=== PATIENT | female | born 1940 | race Caucasian/White ===

== ENCOUNTER 2018-07-31 12:57 | Observation (INO) | payer OTHER ==
--- OUTSIDE RECORDS SUMMARY | 2018-07-31 13:02 | XMS REPORT | Continuity of Care Document ---
:1940 Author Organization Interface Problems Problem Status Onset Classification Date Comments Source Date Reported Paroxysmal atrial 07/30/19 10/23/2017 [facility] fibrillation [facility] PAROXYSMAL ATRIAL Active 06/24/19 [facility] FIB [address] [place] [address] Center CCL GENERAL Active 06/24/19 [facility] ANESTESHIAEP 18 Medical STUDY W. PO Center I48.0 Active 06/24/[address] ELEVATED TROPIN Active 03/03/20 [facility] ELEVATED WBC 17 [facility] Center Coronary artery Active Problem 10/23/2017 [facility] Diabetes Active Problem 10/23/2017 [facility] HLD (<span Resolved Problem 10/23/2017 [place] ID="[id number]"> Medical Confirmed</span>) Center HTN (<span Resolved Problem 10/23/2017 [place] ID="[id number]"> Medical Confirmed</span>) Center Hypertension Active Problem 10/23/2017 [facility] Hypocalcemia Active Problem 10/23/2017 [facility] Hypokalemia Active Problem 10/23/2017 [facility] Hypomagnesemia Active Problem 10/23/2017 [facility] Tachycardia, 10/21/2017 [facility] unspecified [facility] Sick sinus 10/23/2017 [facility] syndrome [facility] 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 Atherosclerosis of 10/21/2017 [facility] aorta [facility] Other nonspecific 10/21/2017 [facility] abnormal finding Medical of lung field Center Personal history 10/23/2017 [facility] of transient Medical ischemic attack , Center and cerebral infarction without residual deficits Essential 10/23/2017 [facility] hypertension [facility] Hyperlipidemia, 10/23/2017 [facility] unspecified [facility] 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 Type 2 diabetes 10/23/2017 [facility] mellitus without Medical complications Center Personal history 10/23/2017 [facility] of nicotine Medical dependence Center intermodal dispatcher use of 10/23/2017 [facility] anticoagulants Medical Center snf use of 10/23/2017 [facility] antithrombotics/an Medical tiplatelets Center intermodal dispatcher use of 10/23/2017 [facility] insulin [facility] Other terminal manager 10/23/2017 [facility] drug therapy [facility] PAROXYSMAL ATRIAL Active [facility] FIBRILLATION [facility] Medications Medication Details Route Status Patient Ordering Order Source Instructions Provider Date Zocor 40 mg, 1 tab, Inactive [facility] Route: PO, Drug 2017 Medical form: TAB, Center Bedtime, Dosing Weight 78.182, kg, Start date: 07/17/17 21:00:00 TRUCK UNLOADER, Duration: 30 day, Stop date: 08/15/17 21:00:00 CDTNotes: (Same as: Zocor) apixaban 2.5 MG 2.5 mg, PO, Active [facility] Oral Tablet Q12H, # 60 tab, 2018 Medical [Eliquis] 3 Refill(s) Center clopidogrel 75 75 mg=1 tab, PO, Active 07/17[facility] MG Oral Tablet Daily, # 90 tab, 2018 Medical [Plavix] 1 Refill(s) Center pantoprazole 40 mg, 1 tab, Inactive [facility] Route: PO, Drug 2017 Medical form: ECTAB, Center Daily, Dosing Weight 78.182, kg, Start date: 07/17/17 9:00:00 TRUCK UNLOADER, Duration: 30 day, Stop date: 08/15/17 9:00:00 CDTNotes: Tablet should not be chewed or crushed. (Same as: Protonix) Sucralfate 1 gm, 1 tab, Inactive 07/17[facility] Route: PO, Drug 2017 Medical form: TAB, BID, Center Dosing Weight 78.182, kg, Start date: 07/17/17 9:00:00 TRUCK UNLOADER, Duration: 30 day, Stop date: 08/15/17 17:00:00 CDTNotes: May interfere w/enteral feeds - Take 1 hr before or 2 hr after antacids, dairy pdt, meals & minerals - On empty stomach. For patients unable to swallow tablet, dissolve in 10mL - 30mL of water or juice and stir before giving. (Same As: Carafate) Furosemide 20 MG 20 mg, 1 tab, Inactive [facility] Oral Tablet Route: PO, Drug 2017 Medical [Lasix] form: TAB, Center Daily, Dosing Weight 78.182, kg, Start date: 07/17/17 9:00:00 TRUCK UNLOADER, Duration: 30 day, Stop date: 08/15/17 9:00:00 CDTNotes: (Same as: Lasix) May cause GI upset. Give with food or milk. Plavix 75 mg, 1 tab, Inactive [facility] Route: PO, Drug 2018 Medical form: TAB, Center Daily, Dosing Weight 78.182, kg, Start date: 07/17/17 9:00:00 TRUCK UNLOADER, Duration: 30 day, Stop date: 08/15/17 9:00:00 CDTNotes: (Same As: Plavix) Citalopram 10 mg, 1 tab, Inactive [facility] Route: PO, Drug 2018 Medical form: TAB, Center Daily, Dosing Weight 78.182, kg, Start date: 07/17/17 9:00:00 TRUCK UNLOADER, Duration: 30 day, Stop date: 08/15/17 9:00:00 CDT Aspirin 81 MG 81 mg, 1 tab, Inactive [facility] Enteric Coated Route: PO, Drug 2018 Medical Tablet form: ECTAB, Center Daily, Dosing Weight 78.182, kg, Start date: 07/17/17 9:00:00 TRUCK UNLOADER, Duration: 30 day, Stop date: 08/15/17 9:00:00 CDTNotes: Do not crush or chew. (Same As: Ecotrin) valsartan 320 mg, 2 tab, Inactive [facility] Route: PO, Drug 2018 Medical form: TAB, Center Daily, Dosing Weight 78.182, kg, Start date: 07/17/17 9:00:00 TRUCK UNLOADER, Duration: 30 day, Stop date: 08/15/17 9:00:00 CDTNotes: Same as Diovan Januvia 100 mg, 1 tab, Inactive 07/17[facility] Route: PO, Drug 2018 Medical form: TAB, Center Daily, Dosing Weight 78.182, kg, Start date: 07/17/17 9:00:00 TRUCK UNLOADER, Duration: 30 day, Stop date: 08/15/17 9:00:00 CDTNotes: (Same as: Januvia) Eliquis 2.5 mg, 1 tab, Inactive [facility] Route: PO, Drug 2018 Medical form: TAB, Q12H, Center Dosing Weight 78.182, kg, Start date: 07/17/17 9:00:00 TRUCK UNLOADER, Duration: 30 day, Stop date: 08/15/17 21:00:00 CDTNotes: Same as: Eliquis Amiodarone 200 mg, 1 tab, Inactive Dru Route: PO, Drug 2018 Medical form: TAB, BID, Center Dosing Weight 78.182, kg, Start date: 07/17/17 9:00:00 TRUCK UNLOADER, Duration: 30 day, Stop date: 08/15/17 17:00:00 CDTNotes: (Same as: Cordarone) AMIODarone 200 200 mg, PO, BID, Active 07/17[facility] Dru mg oral tablet # 60 tab, 3 2017 Medical Refill(s) [place] sucralfate 1 g 1 gm, PO, BID, # Active Dru oral tablet 28 tab, 0 2017 Medical Refill(s) [place] Regular Insulin, 5 unit, 0.05 mL, Inactive [facility] Human 100 UNT/ML Route: SUB-Q, 2018 Medical Injectable Drug form: [facility], [place] Solution TID-Before Meals, Dosing Weight 78.182, kg, PRN Blood Glucose Results, Start date: 07/17/17 8:46:00 TRUCK UNLOADER, Duration: 30 day, Stop date: 08/16/17 8:45:00 CDT, hyperglycemiaNot es: (Same as: Humulin R) Roll in palms of hands gently; Do not shake vigorously. "single patient use only" (Restricted to patients requiring a dose > 60 units) WASTE: F/P - Black; E - Liquid Machines Trash Bin Stable for 28 days at room temperature Expires in days from Da te neostigmine Route: IV, Drug Inactive [facility] (ANES) form: INJ, ONCE, 2017 Medical Stop date: [place] 07/16/17 14:31:00 TRUCK UNLOADER ondansetron Route: IV, Drug Inactive 07/16[facility] Dru (ANES) form: INJ, ONCE, 2017 Medical Stop date: [place] 07/16/17 14:31:00 TRUCK UNLOADER glycopyrrolate Route: IV, Drug Inactive [place] (ANES) form: INJ, ONCE, 2017 Medical Stop date: [place] 07/16/17 14:31:00 TRUCK UNLOADER protamine (ANES) Route: IV, Drug Inactive [place] form: INJ, ONCE, 2017 Medical Stop date: [place] 07/16/17 14:31:00 TRUCK UNLOADER Fentanyl 50 microgram, 1 No Longer [place] mL, Route: IVP, Active 2017 Medical Drug form: INJ, Center Q5Min, Dosing Weight 78.182, kg, PRN Pain Score 7-10, Priority: Routine, Start date: 07/16/17 14:11:00 TRUCK UNLOADER, Duration: 2 doses or times, Stop date: Limited # of timesNotes: (Same as: Sublimaze) Preservative free. Naloxone 0.4 mg, 1 mL, No Longer [place] Route: IVP, Drug Active 2017 Medical form: INJ, Center Q2MIN, Dosing Weight 78.182, kg, PRN Narcotic Reversal, Start date: 07/16/17 14:11:00 TRUCK UNLOADER, Duration: 8 doses or times, Stop date: Limited # of timesNotes: Same as Narcan Flumazenil 0.2 mg, 2 mL, No Longer [place] Route: IVP, Drug Active 2017 Medical form: INJ, PRN, Center Dosing Weight 78.182, kg, PRN Benzodiazepine Reversal, Initial dose, Start date: 07/16/17 14:11:00 TRUCK UNLOADER, Duration: 30 day, Stop date: 08/15/17 15:10:00 CDTNotes: (Same as: Romazicon) Ondansetron 4 mg, 2 mL, No Longer [place] Route: IVP, Drug Active 2017 Medical form: INJ, ONCE, Center Dosing Weight 78.182, kg, PRN Nausea & Vomiting, Start date: 07/16/17 14:11:00 CSTNotes: (Same as: Zofran) MEDICATION WASTE Product Size: 4 mg Product Wasted: ___ mg Hydralazine 10 mg, 0.5 mL, No Longer [place] Route: IVP, Drug Active 2017 Medical form: INJ, Center Q20Min, Dosing Weight 78.182, kg, PRN Elevated BP, Start date: 07/16/17 14:11:00 TRUCK UNLOADER, Duration: 2 doses or times, Stop date: Limited # of timesNotes: (Same as: Apresoline) Push over 5 minutes Metoprolol 1 mg, 1 mL, No Longer [place] Route: IVP, Drug Active 2017 Medical form: INJ, Center Q5Min, Dosing Weight 78.182, kg, PRN Other -See Comment, Start date: 07/16/17 14:11:00 TRUCK UNLOADER, Duration: 5 doses or times, Stop date: Limited # of timesNotes: (Same as: Lopressor) Push over 2 minutes Acetaminophen 1,000 mg, 2 tab, No Longer [place] Route: PO, Drug Active 2017 Medical form: TAB, ONCE, Center Dosing Weight 78.182, kg, PRN Pain Score 1-3, Start date: 07/16/17 14:11:00 CSTNotes: Max acetaminophen 4000 mg/day (4 gm/day). (Same as: Tylenol Extra Strength) EPINEPHrine Route: IV, Drug Inactive [facility] (ANES) form: INJ, ONCE, 2017 Medical Stop date: [place] 07/16/17 13:36:00 TRUCK UNLOADER niCARdipine Route: IV, Drug Inactive [facility] (ANES) + sodium form: INJ, ONCE, 2017 Medical chloride (ANES) Stop date: [place] 4 mL 07/16/17 13:31:00 TRUCK UNLOADER fentaNYL (ANES) Route: IV, Drug Inactive [facility] form: INJ, ONCE, 2017 Medical Stop date: [place] 07/16/17 12:11:00 TRUCK UNLOADER propofol (ANES) Route: IV, Drug Inactive [facility] form: INJ, ONCE, 2017 Medical Stop date: [place] 07/16/17 12:11:00 TRUCK UNLOADER midazolam (ANES) Route: IV, Drug Inactive Dru form: SOLN, 2017 Medical ONCE, Stop date: [place] 07/16/17 12:11:00 TRUCK UNLOADER cisatracurium Route: IV, Drug Inactive Dru (ANES) form: INJ, ONCE, 2017 Medical Stop date: [place] 07/16/17 12:11:00 TRUCK UNLOADER Sodium Chloride Route: IV, Total Inactive [facility] 0.9% IV (ANES) Volume: 1,000, 2018 Medical 1000 mL Start date: Center 07/16/17 11:20:00 TRUCK UNLOADER, Stop date: 07/16/17 12:20:00 TRUCK UNLOADER Fentanyl 50 microgram, Inactive [facility] Route: IV, ONCE, 2018 Medical Dosing Weight Center 78.182, kg, Start date: 07/16/17 9:57:00 TRUCK UNLOADER, Stop date: 07/16/17 9:57:00 TRUCK UNLOADER Versed 2 mg, Route: Inactive Dru IVP, ONCE, 2018 Medical Dosing Weight Center 78.182, kg, Start date: 07/16/17 9:57:00 TRUCK UNLOADER, Stop date: 07/16/17 9:57:00 TRUCK UNLOADER Simvastatin 40 40 mg=1 tab, PO, Active [facility] MG Oral Tablet Bedtime, 0 2018 Medical [Zocor] Refill(s) Center clopidogrel 75 75 mg=1 tab, PO, No Longer [facility] MG Oral Tablet Daily, 0 Active 2018 Medical [Plavix] Refill(s) Center apixaban 2.5 MG 2.5 mg, PO, No Longer [facility] Oral Tablet Q12H, 0 Active 2018 Medical [Eliquis] Refill(s) Center multivitamin 1, PO, Daily, 0 Active [facility] Refill(s) 2018 Medical [place] normal saline 1,000 mL, Rate: No Longer [place] 0.9% IV 1,000 mL 100 ml/hr, Active 2018 Medical Infuse over: 10 Center hr, Route: IV, Dosing Weight 78.182 kg, Total Volume: 1,000, Start date: 07/16/17 7:01:00 TRUCK UNLOADER, Duration: 30 day, Stop date: 08/15/17 7:00:00 CDT, 1.89, m2 Regular Insulin, 5 unit, SUB-Q, Active [facility] Human 100 UNT/ML TID-Before 2017 Medical Injectable Meals, PRN Blood Center Solution Glucose Results, # 1 vial, 2 Refill(s) Blood Glucose 1 ea, MISC, Active Dru Monitor Daily, Use as 2017 Medical directed., # 1 Center ea, 0 Refill(s) Lancets 1 box, MISC, Active [place] Daily, # 1 box, 2017 Medical 0 Refill(s) Center Insulin 1 ea, MISC, TID, Active [place] Needle/Syringe # 100 ea, 11 2016 Medical Combo Misc/Other Refill(s) Center atorvastatin 80 mg, 1 tab, No Longer [place] Route: PO, Drug Active 2016 Medical form: TAB, Center Bedtime, Dosing Weight 70.938, kg, Start date: 03/04/17 21:00:00 CDT, Duration: 30 day, Stop date: 04/02/17 21:00:00 CSTNotes: Same as Lipitor NS (Bolus) IV 500 mL, 100 Inactive [place] ml/hr, Route: 2017 Medical IV, ONCE, Dosing Center Weight 70.938 kg, Start date: 03/04/17 10:39:00 CDT, Stop date: 03/04/17 10:39:00 CDT Saline Flush 10 ml, Route: No Longer [place] 0.9% IVP, Drug Form: Active 2016 Medical INJ, Dosing Center Weight 70.938, kg, Q12H, Start date: 03/04/17 9:00:00 CDT, Duration: 30 day, Stop date: 04/02/17 21:00:00 CSTNotes: (Same as: BD Posiflush) pantoprazole 40 mg, Route: Inactive [place] IVP, Drug form: 2016 Medical INJ, Daily, Center Dosing Weight 70.938, kg, Start date: 03/04/17 9:00:00 CDT, Duration: 30 day, Stop date: 04/02/17 9:00:00 CSTNotes: For IV push reconstitute with 10 ml 0.9% sodium chloride and push over 2 minutes. (Same as: Protonix) valsartan 160 mg, 1 tab, No Longer [place] Route: PO, Drug Active 2016 Medical form: TAB, Center Daily, Dosing Weight 70.938, kg, Start date: 03/04/17 9:00:00 CDT, Stop date: 04/02/17 9:00:00 CSTNotes: Same as Diovan Ticagrelor 90 mg, 1 tab, No Longer Dru Route: PO, Drug Active 2016 Medical form: TAB, Q12H, Center Dosing Weight 70.938, kg, Start date: 03/04/17 9:00:00 CDT, Duration: 30 day, Stop date: 04/02/17 21:00:00 CSTNotes: (Same as: Brilinta) Sotalol 40 mg, 0.5 tab, No Longer [place] Hydrochloride 80 Route: PO, Drug Active 2016 Medical MG Oral Tablet form: TAB, BID, Center Dosing Weight 70.938, kg, Start date: 03/04/17 9:00:00 CDT, Duration: 30 day, Stop date: 04/02/17 17:00:00 CSTNotes: (Same As: Betapace) 40 mg=1/2 x 80 mg TAB Streptococcus 0.5 mL, Route: Inactive Dru pneumoniae IM, Drug Form: 2016 Medical serotype 1 INJ, Daily, Center capsular antigen Start date: diphtheria 03/04/17 9:00:00 [id number] protein CDT, Duration: 1 conjugate doses or times, vaccine / Stop date: Streptococcus 03/04/17 9:00:00 pneumoniae CDTNotes: Shake serotype 14 well prior to capsular antigen use (Same as: diphtheria Prevnar 13) [id number] protein conjugate vaccine / Streptococcus pneumoniae serotype 18C capsular antigen d Citalopram 10 mg, Route: No Longer Dru PO, Drug form: Active 2016 Medical TAB, Daily, Center Dosing Weight 70.938, kg, Start date: 03/04/17 9:00:00 CDT, Duration: 30 day, Stop date: 04/02/17 9:00:00 TRUCK UNLOADER influenza virus 0.5 mL, Route: Inactive Dru vaccine, IM, Drug Form: 2016 Medical inactivated SUSP, Daily, Center Start date: 03/04/17 9:00:00 CDT, Duration: 1 doses or times, Stop date: 03/04/17 9:00:00 CDTNotes: (Same as: Fluzone Quadrivalent, Fluarix Quadrivalent) For 3 years of age and older (0.5 mL IM) Shake well before use aspirin 81 mg 81 mg, 1 tab, No Longer Dru tablet, enteric Route: PO, Drug Active 2016 Medical coated form: ECTAB, Center Daily, Dosing Weight 70.938, kg, Start date: 03/04/17 9:00:00 CDT, Duration: 30 day, Stop date: 04/02/17 9:00:00 CSTNotes: Do not crush or chew. (Same As: Ecotrin) Amlodipine 10 mg, 1 tab, No Longer [place] Route: PO, Drug Active 2016 Medical form: TAB, Center Daily, Dosing Weight 70.938, kg, Start date: 03/04/17 9:00:00 CDT, Duration: 30 day, Stop date: 04/02/17 9:00:00 CSTNotes: (Same as: Norvasc) Insulin regular 5 unit, 0.05 mL, No Longer [place] Route: SUB-Q, Active 2016 Medical Drug form: SOLN, Center TID-Before Meals, Dosing Weight 70.938, kg, Start date: 03/04/17 7:30:00 CDT, Duration: 30 day, Stop date: 04/02/17 16:30:00 CSTNotes: (Same as: Humulin R) Roll in palms of hands gently; Do not shake vigorously. "single patient use only" (Restricted to patients requiring a dose > 60 units) WASTE: F/P - Black; E - Liquid Mach[employer] Trash Bin Stable for 28 days at room temperature Expires in days from Da te pantoprazole 40 mg, 1 tab, No Longer [place] Route: PO, Drug Active 2016 Medical form: ECTAB, Center Before Breakfast, Dosing Weight 70.938, kg, Start date: 03/04/17 7:30:00 CDT, Duration: 30 day, Stop date: 04/02/17 7:30:00 CSTNotes: Tablet should not be chewed or crushed. (Same as: Protonix) Sodium Chloride 1,000 mL, 1,000 Inactive [place] 0.9% (Bolus) IV ml/hr, Infuse 2017 Medical Over: 1 hr, [place] Route: IV, 1,000, Drug form: INJ, ONCE, Priority: STAT, Dosing Weight 70.938 kg, Start date: 03/04/17 1:34:00 CDT, Duration: 1 doses or times, Stop date: 03/04/17 1:34:00 CDT Calcium Chloride 1,000 mL, 1,000 Inactive [place] 0.0014 MEQ/ML / ml/hr, Infuse 2017 Medical Potassium Over: 1 hr, Center Chloride 0.004 Route: IVPB, MEQ/ML / Sodium 1,000, Drug Chloride 0.103 form: INJ, ONCE, MEQ/ML / Sodium Priority: STAT, Lactate 0.028 Dosing Weight MEQ/ML 70.938 kg, Start Injectable date: 03/04/17 Solution 1:23:00 CDT, Duration: 1 doses or times, Stop date: 03/04/17 1:23:00 CDT Insulin regular 3 unit, 0.03 mL, No Longer [place] Route: SUB-Q, Active 2016 Medical Drug form: SOLN, Center Bedtime, Dosing Weight 70.938, kg, PRN Blood Glucose Results, Start date: 03/04/17 1:20:00 CDT, Duration: 30 day, Stop date: 04/03/17 1:19:00 CSTNotes: (Same as: Humulin R) Roll in palms of hands gently; Do not shake vigorously. "single patient use only" (Restricted to patients requiring a dose > 60 units) WASTE: F/P - Black; E - Liquid [employer] Trash Bin Stable for 28 days at room temperature Expires in days from Da te Dextrose 50% 12.5 gm, 25 mL, No Longer [place] Syringe Route: IVP, Drug Active 2016 Medical Form: INJ, Center Dosing Weight 70.938, kg, PRN, PRN Blood Glucose Results, Start date: 03/04/17 1:20:00 CDT, Duration: 30 day, Stop date: 04/03/17 0:19:00 TRUCK UNLOADER Glucagon 1 mg, Route: IM, No Longer [place] Drug form: Active 2017 Medical PDR/INJ, PRN, Center Dosing Weight 70.938, kg, PRN Blood Glucose Results, Start date: 03/04/17 1:20:00 CDT, Duration: 30 day, Stop date: 04/03/17 0:19:00 TRUCK UNLOADER benzonatate 100 mg, 1 cap, No Longer [place] Route: PO, Drug Active 2016 Medical form: CAP, TID, Center Dosing Weight 70.938, kg, PRN Cough, Start date: 03/04/17 0:08:00 CDT, Duration: 30 day, Stop date: 04/03/17 0:07:00 CSTNotes: (Same As: Nay [place]) "Do Not Crush" Saline Flush 10 ml, Route: No Longer [place] 0.9% IVP, Drug Form: Active 2017 Medical INJ, Dosing Center Weight 70.938, kg, PRN, PRN Line Flush, Start date: 03/03/17 21:50:00 CDT, Duration: 30 day, Stop date: 04/02/17 20:49:00 CSTNotes: (Same as: BD Posiflush) Acetaminophen 650 mg, 2 tab, No Longer [place] Route: PO, Drug Active 2016 Medical form: TAB, Q4H, Center Dosing Weight 70.938, kg, PRN For Temp > 100.4 F, Start date: 03/03/17 21:50:00 CDT, Duration: 30 day, Stop date: 04/02/17 21:49:00 CSTNotes: Do not exceed 4 gm/day. (Same as: Tylenol) Nystatin 100 1 appl, Route: No Longer [place] UNT/MG Topical TOP, PRN, Drug Active 2016 Medical Powder form: PWDR, PRN [facility] Prophyl[facility], Start date: 03/03/17 21:50:00 CDT, Duration: 30 day, Stop date: 04/02/17 20:49:00 CSTNotes: (Same as:Mycostatin, Nilstat) For external use only. Calcium 500 mg, 1 tab, No Longer [place] Carbonate 500 MG Route: PO, Drug Active 2016 Medical Chewable Tablet form: CHEWTAB, Center PRN, Dosing Weight 70.938, kg, PRN Abnormal Lab Result, FOR ICU USE ONLY, Start date: 03/03/17 21:50:00 CDT, Duration: 30 day, Stop date: 04/02/17 20:49:00 CSTNotes: (Same As: Tums) Calcium Carbonate 500 on=746 mg elemental calcium Dose= mg calcium carbonate ( mg elemental calcium) Calcium 1 gm, 10 mL, No Longer [place] Gluconate Route: IVPB, Active 2017 Medical PRN, Dosing Center Weight 70.938, kg, PRN Abnormal Lab Result, Start date: 03/03/17 21:50:00 CDT, Duration: 30 day, Stop date: 04/02/17 20:49:00 TRUCK UNLOADER, FOR ICU USE ONLYNotes: WASTE: F/P - Sink; E - Municipal Trash Bin Magnesium 2 gm, 50 mL, No Longer [place] Sulfate Route: IVPB, Active 2016 Medical Drug form: INJ, Center PRN, Dosing Weight 70.938, kg, PRN Abnormal Lab Result, Start date: 03/03/17 21:50:00 CDT, Duration: 30 day, Stop date: 04/02/17 20:49:00 TRUCK UNLOADER, FOR ICU USE ONLYNotes: WASTE: F/P - Sink; E - Municipal Trash Bin Magnesium Oxide 800 mg, 2 tab, No Longer [place] Route: PO, Drug Active 2016 Medical form: TAB, PRN, Center Dosing Weight 70.938, kg, PRN Abnormal Lab Result, FOR ICU USE ONLY, Start date: 03/03/17 21:50:00 CDT, Duration: 30 day, Stop date: 04/02/17 20:49:00 CSTNotes: (Same as: Mag-Ox 400) Magnesium oxide [id number] elemental magnesium Dose=____mg magnesium oxide (___mg elemental magnesium) potassium 45 mmol, 15 mL, No Longer [place] phosphate Route: IVPB, Active 2016 Medical PRN, Dosing Center Weight 70.938, kg, PRN Abnormal Lab Result, Start date: 03/03/17 21:50:00 CDT, Duration: 30 day, Stop date: 04/02/17 20:49:00 TRUCK UNLOADER, FOR ICU USE ONLYNotes: (Same as: K Phosphate.) 1 mMol phoshate has 1.47 mEq potassium Infuse over 4 hours potassium 2 pkt, Route: No Longer Dru phosphate-sodium PO, Drug Form: Active 2017 Medical phosphate 250 PDR/REC, Dosing Center mg-280 mg-160 mg Weight 70.938, oral powder for kg, PRN, PRN reconstitution Abnormal Lab Result, FOR ICU USE ONLY, Start date: 03/03/17 21:50:00 CDT, Duration: 30 day, Stop date: 04/02/17 20:49:00 CSTNotes: (Same as: Phos-NaK) Each 1.5 gm pkt has 250mg phosphorous. Mix w/2.5oz water and stir. sodium phosphate 45 mmol, 15 mL, No Longer [place] Route: IVPB, Active 2016 Medical PRN, Dosing Center Weight 70.938, kg, PRN Abnormal Lab Result, Start date: 03/03/17 21:50:00 CDT, Duration: 30 day, Stop date: 04/02/17 20:49:00 TRUCK UNLOADER, FOR ICU USE ONLY Potassium 20 mEq, 15 mL, No Longer [place] Chloride Route: [place], Drug Active 2016 Medical form: LIQ, PRN, Center Dosing Weight 70.938, kg, PRN Abnormal Lab Result, Start date: 03/03/17 21:50:00 CDT, Duration: 30 day, Stop date: 04/02/17 20:49:00 TRUCK UNLOADER, FOR ICU USE ONLYNotes: (Same as: Potassium Chloride) Allergies, Adverse Reactions, Alerts Substance Category Reaction Severity Reaction Status Date Comments Source type Reported sulfa drugs Assertion Drug Active [facility] allergy [facility] Immunizations Immunization Date Given Site Status Last Updated Comments Source pneumococcal 02/26/2017 Not Given [facility] 13-valent vaccine [facility] influenza virus 02/26/2017 Not Given [facility] vaccine, Medical inactivated Center Results Order Name Results Value Reference Date Interpretation Comments Source Range HEMATOLOGY POC Activated 142 s 07/16 [facility] Clotting Time /2017 [facility] HEMATOLOGY POC Activated 349 s 07/16 [facility] Clotting Time /2017 [facility] HEMATOLOGY POC Activated 403 s 07/16 [facility] Clotting Time [facility] BLOOD BANK AB Int Anti-D 07/16 [facility] RESULTS [facility] BLOOD BANK ABO/Rh AB NEG 07/16 [facility] BLOOD BANK Antibody Scrn Positive 1 07/16 Result Comment: 07/16/2017 08 :43 [id number] [facility] "Significant Findings of POS ABSC_ called to ROCKY OILVO_ at CATH LAB_ by AT_. Read Back OK" [facility] (07/16/17 7:05 AM) [place] CHEM PANEL Total Protein 7.0 g/dL 6.4 - 8.4 07/16 [facility]2017 [facility] CHEM PANEL AST 24 unit/L 0 - 37 07/[address] CHEM PANEL Alk Phos 73 unit/L 39 - 136 07/[address] CHEM PANEL Bili Total 0.5 mg/dL 0.2 - 1.3 07/[address] CHEM PANEL Albumin Lvl 3.5 g/dL 3.5 - 5.0 07/16 [facility] CHEM PANEL ALT 19 unit/L 0 - 65 07/[address] CHEM PANEL eGFR 45 07/16 Result Comment: The eGFR is calculated using the CKD-EPI formula. In most young, healthy individuals the eGFR will be >90 mL/ min/1.73m2. The eGFR declines with age. An eGFR of 60-89 may be normal in [facility] mL/min/1. some populations, particularly the elderly, for whom the CKD-EPI formula has not been extensively validated. Use of the eGFR is not recommended in the following populations: [address] Individuals with unstable creatinine concentrations, including patients and those with serious co-morbid conditions. Patients with extremes in muscle mass or diet. The data above are obtained from the National Kidney Disease Education Program (NKDEP) which additionally recommends that when the eGFR is used in patients with extremes of body mass index for purposes of drug dosing, the eGFR should be multiplied by the estimated BMI. CHEM PANEL Calcium Lvl 9.4 mg/dL 8.5 - 10.5 07/16 [facility] CHEM PANEL CO2 30 meq/L 24 - 32 07/[address] CHEM PANEL Sodium Lvl 139 meq/L 135 - 145 07/[address] CHEM PANEL Potassium Lvl 3.9 meq/L 3.5 - 5.1 07/[address] CHEM PANEL Chloride Lvl 100 meq/L 95 - 109 07/[address] CHEM PANEL Glucose Lvl 327 mg/dL 70 - 99 07/[address] CHEM PANEL Creatinine 1.19 mg/dL 0.50 - 07/16 [facility] Lvl 1.40 /2017 [facility] CHEM PANEL BUN 16 mg/dL 7 - 22 07/16 [facility]2017 [facility] CHEM PANEL Globulin 3.5 g/dL 2.7 - 4.2 07/16 [facility]2017 [facility] CHEM PANEL A/G Ratio 1.0 0.7 - 1.6 07/16 [facility]2017 [facility] CHEM PANEL B/C Ratio 13 6 - 25 07/16 [facility]2017 [facility] CHEM PANEL AGAP 12.9 meq/L 10.0 - 07/16 20.0 [facility] CHEM PANEL Magnesium Lvl 1.5 mg/dL 1.8 - 2.4 07/16 2017 [facility] HEMATOLOGY PTT 30.7 s 22.9 - 07/16 [facility] 35.8 [facility] HEMATOLOGY PT 15.4 s 12.0 - 07/16 [facility] 14.7 [facility] HEMATOLOGY INR 1.21 0.85 - 07/16 [place] 1.17 [facility] HEMATOLOGY MPV 8.4 fL 7.4 - 10.4 07/[address] [place] [address] HEMATOLOGY Platelet 225 K/CMM 133 - 450 07/16 [facility] HEMATOLOGY MCH 27.7 pg 27.0 - 07/16 31.0 [facility] HEMATOLOGY MCV 82.7 fL 80.0 - 07/16 [facility] 98.0 [facility] HEMATOLOGY RDW 15.7 % 11.5 - 07/16 14.5 [facility] HEMATOLOGY MCHC 33.5 g/dL 32.0 - 07/16 36.0 [facility] HEMATOLOGY RBC 3.82 M/CMM 4.20 - 07/16 [place] 5.40 [facility] HEMATOLOGY WBC 7.2 K/CMM 3.7 - 10.4 07/16 [facility] HEMATOLOGY Hct 31.6 % 36.0 - 07/16 [facility] 48.0 [facility] HEMATOLOGY Hgb 10.6 g/dL 12.0 - 07/16 16.0 2018 [facility] HEMATOLOGY Segs-Bands # 4.9 K/CMM 1.5 - 8.1 07/[address] HEMATOLOGY Lymphocytes # 1.3 K/CMM 1.0 - 5.5 07/[address] HEMATOLOGY Basophils # 0.1 K/CMM 0.0 - 0.2 07/[address] HEMATOLOGY Eosinophils # 0.2 K/CMM 0.0 - 0.5 07/[address] HEMATOLOGY Monocytes # 0.8 K/CMM 0.0 - 0.8 07/[address] HEMATOLOGY Eosinophils 2.2 % 0.0 - 4.0 07/[address] HEMATOLOGY Basophils 0.8 % 0.0 - 1.0 07/[address] HEMATOLOGY Lymphocytes 17.6 % 20.0 - 07/16 [place] 40.0 [facility] HEMATOLOGY Monocytes 11.7 % 2.0 - 12.0 07/[address] HEMATOLOGY Segs 67.7 % 45.0 - 07/16 [facility] 75.0 [facility] CHEM PANEL eGFR 55 07/15 Result Comment: The eGFR is calculated using the CKD-EPI formula. In most young, healthy individuals the eGFR will be >90 mL/ min/1.73m2. The eGFR declines with age. An eGFR of 60-89 may be normal in [facility] mL/min/1.7 some populations, particularly the elderly, for whom the CKD-EPI formula has not been extensively validated. Use of the eGFR is not recommended in the following populations: [address] Individuals with unstable creatinine concentrations, including patients and those with serious co-morbid conditions. Patients with extremes in muscle mass or diet. The data above are obtained from the National Kidney Disease Education Program (NKDEP) which additionally recommends that when the eGFR is used in patients with extremes of body mass index for purposes of drug dosing, the eGFR should be multiplied by the estimated BMI. CHEM PANEL POC 1.0 mg/dL 0.5 - 1.4 07/15 [facility] Creatinine [address] [place] [address] Pulmonary Pulmonary Chest CTA pulmonary vein mapping, 07/15/2017 at 10:01 AM 07/15 - [facility] Vein Vein Mapping /2017 - Medical [facility] CT CT Center HISTORY: 76-year-old female with paroxysmal atrial fibrillation. Evaluate the pulmonary veins. Read by: Alma Gomez MD Dictated Date/time: 07/15/17 10:35 Electronically Signed by: Alma Gomez MD 07/15/17 10:54 FINAL REPORT TECHNIQUE: Continuous [address] images were obtained through the chest according to pulmonary vein mapping protocol elevated the intravenous administration of 90 mL Omnipaque 350 contrast with delayed imaging through the heart. Coronal, sagittal and axial MIP reformatted images provided. No prior chest CT is available for comparison. FINDINGS: 4 pulmonary veins are identified, 2 on the right and 2 on the left. Measurements are as follows: Right superior pulmonary vein 18 x 19 mm, right inferior pulmonary vein 14 x 15 mm, left superior pulmona ry vein 19 x 20 mm and left inferior pulmonary vein 17 x 18 mm. No filling defects are identified in the left atrium to suggest the presence of left atrial thrombus. The AP diameter of the left atrium i s 53 mm. The esophagus comes in closest proximity with the left inferior pulmonary vein. Cardiothoracic ratio is 14.2/23.3 cm. Lipomatous hypertrophy of the interatrial septum. The ascending aorta does not measure enlarged. The pulmonary trunk is slightly prominent at 31 mm, the right pulmo nary artery 25 mm and the left pulmonary artery 24 mm. Calcified atherosclerotic plaque scattered in the thoracic aorta. Abundant calcifications of the left main, left anterior descending, left circumfl ex and right coronary arteries. Mitral annular calcification. Bilateral breast calcifications, which can be correlated with mammography. Abdominal aortic and arterial calcifications. The adrenal glands are unremarkable. Cholecystectomy clips noted. No pericardial effusion. Trace right pleural effusion. The paratracheal lymph node is 14 mm. There are borderline sized right hilar lymph nodes. Additional subcentimeter mediastinal and hilar lymph nodes noted. There is mild interlobular septal thickening with a lower lobe predilection , consistent with very mild interstitial pulmonary edema in the lungs. There are numerous tiny 2 to 3 mm pulmonary nodules scat tered throughout the lungs bilaterally with an upper lobe predilection. The bones are demineralized. The thoracic spine is kyphotic with degenerative changes including osteophytes. There are degenerative changes of the bilateral shoulders. There is deformity of the surgical neck of the proximal left humerus which may be due to old healed trauma. Note is made of old healed bilateral rib fractures anteriorly. Median sternotomy changes. IMPRESSION: 1. 4 pulmonary veins are identified, 2 on the right and 2 on the left. Measurements are as above. 2. No left atrial thrombus. 3. Cardiomegaly. Lipomatous hypertrophy of the interatrial septum. The central pulmonary arteries are slightly prominent. 4. Aortic atherosclerosis. Coronary artery calcifications. 5. Slightly enlarged mediastinal and right hilar lymph nodes are likely reactive. 6. Mild interstitial pulmonary edema. 7. Numerous tiny 2 to 3 mm pulmonary nodules scattered in the lungs bilaterally. * According to the Fleischner Society 2017 Guidelines for management of pulmonary nodules, a low risk patient with multiple nodules measuring less than 6 mm does not require routine follow-up. For a hi gh risk patient, multiple nodules measuring less than 6 mm can be followed with a repeat chest CT at 12 months. CHEM PANEL Phosphorus 2.0 mg/dL 2.5 - 4.5 03/05 [facility] CHEM PANEL Magnesium Lvl 2.0 mg/dL 1.8 - 2.4 03/05 [facility] CHEM PANEL eGFR 69 03/05 Result Comment: The eGFR is calculated using the CKD-EPI formula. In most young, healthy individuals the eGFR will be >90 mL/ min/1.73m2. The eGFR declines with age. An eGFR of 60-89 may be normal in [facility] mL/min/1.7 some populations, particularly the elderly, for whom the CKD-EPI formula has not been extensively validated. Use of the eGFR is not recommended in the following populations: [address] Individuals with unstable creatinine concentrations, including patients and those with serious co-morbid conditions. Patients with extremes in muscle mass or diet. The data above are obtained from the National Kidney Disease Education Program (NKDEP) which additionally recommends that when the eGFR is used in patients with extremes of body mass index for purposes of drug dosing, the eGFR should be multiplied by the estimated BMI. CHEM PANEL Potassium Lvl 4.1 meq/L 3.5 - 5.1 03/05 [facility] CHEM PANEL Creatinine 0.83 mg/dL 0.50 - 03/05 [facility] Lvl 1.40 [facility] CHEM PANEL Chloride Lvl 100 meq/L 95 - 109 03/05 [facility] CHEM PANEL Sodium Lvl 135 meq/L 135 - 145 03/[address] [place] [address] CHEM PANEL CO2 25 meq/L 24 - 32 03/05 [facility] CHEM PANEL AGAP 14.1 meq/L 10.0 - 03/05 [facility] 20.0 /2017 [facility] CHEM PANEL Calcium Lvl 8.7 mg/dL 8.5 - 10.5 03/05 [facility] CHEM PANEL BUN 18 mg/dL 7 - 22 03/05 [facility] CHEM PANEL Glucose Lvl 129 mg/dL 70 - 99 03/05 [facility] HEMATOLOGY MCHC 33.7 g/dL 32.0 - 03/05 36.0 [facility] HEMATOLOGY RDW 14.7 % 11.5 - 03/05 14.5 [facility] HEMATOLOGY MCH 28.7 pg 27.0 - 03/05 31.0 [facility] HEMATOLOGY MPV 8.2 fL 7.4 - 10.4 03/05 [facility] HEMATOLOGY Platelet 281 K/CMM 133 - 450 03/05 [facility] HEMATOLOGY MCV 85.2 fL 80.0 - 03/05 98.0 [facility] HEMATOLOGY Hct 27.2 % 36.0 - 03/05 48.0 [facility] HEMATOLOGY Hgb 9.2 g/dL 12.0 - 03/05 16.0 [facility] HEMATOLOGY RBC 3.19 M/CMM 4.20 - 03/05 5.40 [facility] HEMATOLOGY WBC 8.7 K/CMM 3.7 - 10.4 03/05 [facility] HEMATOLOGY Segs 64.7 % 45.0 - 03/05 75.0 [facility] HEMATOLOGY Segs-Bands # 5.6 K/CMM 1.5 - 8.1 03/05 [facility] HEMATOLOGY Lymphocytes # 1.2 K/CMM 1.0 - 5.5 03/05 [facility] HEMATOLOGY Monocytes # 1.6 K/CMM 0.0 - 0.8 03/05 [facility] HEMATOLOGY Basophils 0.8 % 0.0 - 1.0 03/05 [facility] HEMATOLOGY Eosinophils # 0.2 K/CMM 0.0 - 0.5 03/05 [facility] HEMATOLOGY Basophils # 0.1 K/CMM 0.0 - 0.2 03/05 [facility] HEMATOLOGY Eosinophils 1.8 % 0.0 - 4.0 03/05 [facility] HEMATOLOGY Lymphocytes 13.9 % 20.0 - 03/05 [place] 40.0 [facility] HEMATOLOGY Monocytes 18.8 % 2.0 - 12.0 03/05 [facility] PARATHYROID Ca Norm WB 1.12 1.05 - 03/05 [place] PROFILE mMol/L 1. [facility] PARATHYROID Ca Ion WB 1.11 1.05 - 03/05 [place] PROFILE mMol/L 1. [facility] URINE AND UA <=1.0 0.1 - 1.0 03/04 [facility] Urobilinogen mg/dL [facility] URINE AND UA Bacteria Occasional None Seen 03/04 [facility] /HPF /HPF [facility] URINE AND UA RBC 1 /HPF 0 - 2 03/04 [facility] URINE AND UA WBC 2 /HPF 0 - 5 03/04 [facility] [address] [place] [address] URINE AND UA Mucus Few /LPF None Seen 03/04 [facility] /LPF [facility] URINE AND UA Sq Epi Occasional Few /LPF 03/04 [facility] /LPF [address] [place] [address] URINE AND UA Color Yellow Yellow 03/04 [facility] [address] [place] [address] *NA* Center (03/04/17 4:40 PM) URINE AND UA Turbidity Clear Clear 03/04 [facility] (03/04/17 4:40 PM) [place] URINE AND UA Protein Negative Negative 03/04 [facility] mg/dL mg/dL [facility] URINE AND UA Glucose Negative Negative 03/04 [facility] mg/dL mg/dL [facility] URINE AND UA pH 5.0 5.0 - 8.0 03/04 [facility] [address] [place] [address] URINE AND UA Ketones Negative Negative 03/04 [facility] mg/dL mg/dL [facility] URINE AND UA Nitrite Negative Negative 03/04 [facility] [address] [place] [address] (03/04/17 4:40 PM) [place] URINE AND UA Blood Negative Negative 03/04 [facility] (03/04/17 4:40 PM) [place] URINE AND UA Leuk Est Trace Negative 03/04 [facility] [address] [place] [address] *ABN* Center (03/04/17 4:40 PM) URINE AND UA Spec Grav 1.013 <=1.030 03/04 [facility] /[address] [place] [address] URINE AND UA Bili Negative Negative 03/04 [facility] Medical *NA* Center (03/04/17 4:40 PM) CHEM PANEL eGFR 51 03/04 Result Comment: The eGFR is calculated using the CKD-EPI formula. In most young, healthy individuals the eGFR will be >90 mL/ min/1.73m2. The eGFR declines with age. An eGFR of 60-89 may be normal in [facility] mL/min/1.7 some populations, particularly the elderly, for whom the CKD-EPI formula has not been extensively validated. Use of the eGFR is not recommended in the following populations: [address] Individuals with unstable creatinine concentrations, including patients and those with serious co-morbid conditions. Patients with extremes in muscle mass or diet. The data above are obtained from the National Kidney Disease Education Program (NKDEP) which additionally recommends that when the eGFR is used in patients with extremes of body mass index for purposes of drug dosing, the eGFR should be multiplied by the estimated BMI. CHEM PANEL AGAP 12.8 meq/L 10.0 - 03/04 [facility] 20.0 [facility] CHEM PANEL Chloride Lvl 96 meq/L 95 - 109 03/[address] CHEM PANEL CO2 27 meq/L 24 - 32 03/[address] CHEM PANEL Potassium Lvl 3.8 meq/L 3.5 - 5.1 03/[address] CHEM PANEL Calcium Lvl 8.2 mg/dL 8.5 - 10.5 03/[address] CHEM PANEL Sodium Lvl 132 meq/L 135 - 145 03/[address] CHEM PANEL Creatinine 1.07 mg/dL 0.50 - 03/04 [facility] Lvl 1.40 [facility] CHEM PANEL Glucose Lvl 206 mg/dL 70 - 99 03/[address] CHEM PANEL BUN 25 mg/dL 7 - 22 03/[address] CHEM PANEL Phosphorus 2.2 mg/dL 2.5 - 4.5 03/[address] CHEM PANEL Magnesium Lvl 2.3 mg/dL 1.8 - 2.4 03/[address] PARATHYROID Ca Norm WB 1.04 1.05 - 03/04 [facility] PROFILE mMol/L 1.25 [facility] PARATHYROID Ca Ion WB 1.02 1.05 - 03/04 [facility] PROFILE mMol/L 1.25 [facility] CHEM PANEL Phosphorus 2.7 mg/dL 2.5 - 4.5 03/04 [facility] CHEM PANEL Magnesium Lvl 1.6 mg/dL 1.8 - 2.4 03/04 [facility] CHEM PANEL BUN 27 mg/dL 7 - 22 03/04 [facility] CHEM PANEL Creatinine 1.20 mg/dL 0.50 - 03/04 [facility] Lvl 1.40 [facility] CHEM PANEL Sodium Lvl 135 meq/L 135 - 145 03/04 [facility] CHEM PANEL eGFR 44 03/04 Result Comment: The eGFR is calculated using the CKD-EPI formula. In most young, healthy individuals the eGFR will be >90 mL/ min/1.73m2. The eGFR declines with age. An eGFR of 60-89 may be normal in [facility] mL/min/1.7 some populations, particularly the elderly, for whom the CKD-EPI formula has not been extensively validated. Use of the eGFR is not recommended in the following populations: [address] Individuals with unstable creatinine concentrations, including patients and those with serious co-morbid conditions. Patients with extremes in muscle mass or diet. The data above are obtained from the National Kidney Disease Education Program (NKDEP) which additionally recommends that when the eGFR is used in patients with extremes of body mass index for purposes of drug dosing, the eGFR should be multiplied by the estimated BMI. CHEM PANEL Glucose Lvl 109 mg/dL 70 - 99 03/04 [facility] CHEM PANEL Potassium Lvl 2.7 meq/L 3.5 - 5.1 03/04 Result Comment: [facility] Result(s) called to Kalyan Garza at 03/04/2017 05:24 by ET. Read back OK. CHEM PANEL Chloride Lvl 94 meq/L 95 - 109 03/04 [facility] CHEM PANEL CO2 27 meq/L 24 - 32 03/04 [facility] CHEM PANEL AGAP 16.7 meq/L 10.0 - 03/04 [facility] 20.0 [facility] CHEM PANEL Calcium Lvl 8.3 mg/dL 8.5 - 10.5 03/04 [facility] PARATHYROID Ca Ion WB 1.00 1.05 - 03/04 [facility] PROFILE mMol/L 1. [facility] PARATHYROID Ca Norm WB 0.98 1.05 - 03/04 [facility] PROFILE mMol/L 1. [facility] BACTERIAL - MRSA by PCR Negative 03/04 [facility] (03/03/17 11:45 PM) [place] CHEM PANEL Lactic Acid 1.6 mMol/L 0.5 - 2.2 03/04 [facility] Lvl [facility] CHEM PANEL Procalcitonin 0.44 ng/mL 0.00 - 03/04 [facility] Lvl 0. [facility] HEMATOLOGY MPV 8.7 fL 7.4 - 10.4 03/04 [facility] HEMATOLOGY MCH 28.7 pg 27.0 - 03/04 [facility] 31.0 [facility] HEMATOLOGY MCHC 33.9 g/dL 32.0 - 03/04 [facility] 36.0 [facility] HEMATOLOGY Platelet 316 K/CMM 133 - 450 03/04 [facility] HEMATOLOGY RDW 14.9 % 11.5 - 03/04 [facility] 14.5 [facility] HEMATOLOGY RBC 3.21 M/CMM 4.20 - 03/04 [facility] 5.40 [facility] HEMATOLOGY MCV 84.7 fL 80.0 - 03/04 [facility] 98.0 [facility] HEMATOLOGY Hct 27.2 % 36.0 - 03/04 [facility] 48.0 [facility] HEMATOLOGY Hgb 9.2 g/dL 12.0 - 03/04 [facility] 16.0 [facility] HEMATOLOGY WBC 12.7 K/CMM 3.7 - 10.4 03/04 [facility] HEMATOLOGY Segs 74.1 % 45.0 - 03/04 [facility] 75.0 2017 [facility] HEMATOLOGY Lymphocytes # 1.2 K/CMM 1.0 - 5.5 03/04 [facility] HEMATOLOGY Monocytes # 1.9 K/CMM 0.0 - 0.8 03/04 [facility] HEMATOLOGY Basophils 0.8 % 0.0 - 1.0 03/04 [facility] HEMATOLOGY Segs-Bands # 9.4 K/CMM 1.5 - 8.1 03/04 [facility] HEMATOLOGY Eosinophils 0.4 % 0.0 - 4.0 03/04 [facility] HEMATOLOGY Lymphocytes 9.7 % 20.0 - 03/04 [place] 40.0 [facility] HEMATOLOGY Monocytes 15.0 % 2.0 - 12.0 03/04 [facility] HEMATOLOGY Eosinophils # 0.1 K/CMM 0.0 - 0.5 03/04 [facility] HEMATOLOGY Basophils # 0.1 K/CMM 0.0 - 0.2 03/04 [facility] Chest 1view Chest 1view EXAM: XR CHEST 1 VIEW 03/03 - [facility] DX - [facility] This report was dictated by a Warehouse Team Member/Fellow. I have personally reviewed the images as Center well as the Resident's interpretation and agree with the findings. DATE: 03/03/2017 at 2244 hours Read by: Ayah Branch MD Resident: Ayah Branch MD Dictated Date/time: 03/04/17 08:18 Electronically Signed by: Joyce Soto MD 03/04/17 11:00 FINAL REPORT INDICATION: Evaluate for pneumonia COMPARISON: None. TECHNIQUE: AP chest FINDINGS: Lines, tubes and hardware: Postoperative changes from prior CABG are noted including median sternotomy wires and mediastinal clips.. Lungs and pleura: No focal airspace opacity is seen. The costophrenic sulci are sharp. No pneumothorax is seen. Heart and mediastinum: The heart size is enlarged. The thoracic aorta is tortuous. Vascular calcifications are present in the aorta. Bones: No acute bony abnormality is identified. IMPRESSION: 1. Postoperative changes from CABG are again noted. 2. The lungs are clear. Vital Signs Vital Sign Value Date Comments Source Systolic (mm Hg) 120 07/17/2017 [facility] Diastolic (mm Hg) 64 07/17/2017 [facility] Temperature Oral (F) 97.9 F 07/17/2017 [facility] Respitory Rate 16 07/17/2017 [facility] Systolic (mm Hg) 147 07/17/2017 [facility] Diastolic (mm Hg) 67 07/17/2017 [facility] Systolic (mm Hg) 139 07/17/2017 [facility] Diastolic (mm Hg) 65 07/17/2017 [facility] Respitory Rate 20 07/17/2017 [facility] Respitory Rate 20 07/16/2017 [facility] Temperature Oral (F) 98.0 F 07/16/2017 [facility] BMI Calculated 30.53 07/16/2017 [facility] Height 160.02 cm 07/16/2017 [facility] Weight 78.182 07/16/2017 [facility] Height 160.02 cm 07/15/2017 [facility] Weight 72.727 07/15/2017 [facility] BMI Calculated 28.4 07/15/2017 [facility] Systolic (mm Hg) 143 03/05/2017 [facility] Diastolic (mm Hg) 65 03/05/2017 [facility] Respitory Rate 18 03/05/2017 [facility] Systolic (mm Hg) 137 03/05/2017 [facility] [facility] Diastolic (mm Hg) 61 03/05/2017 [facility] Respitory Rate 18 03/05/2017 [facility] Respitory Rate 18 03/05/2017 [facility] Systolic (mm Hg) 128 03/05/2017 [facility] Diastolic (mm Hg) 60 03/05/2017 [facility] Temperature Oral (F) 98.7 F 03/05/2017 [facility] Temperature Oral (F) 98.6 F 03/05/2017 [facility] Temperature Oral (F) 98.9 F 03/05/2017 [facility] Height 160.02 cm 03/04/2017 [facility] BMI Calculated 27.7 03/04/2017 [facility] Weight 70.938 03/04/2017 [facility] Encounters Location Location Encounter Encounter Reason Attending ADM DC Status Source Details Type Number For Provider Date Date Visit [facility] [id number] Conner 03/04 03/05 [facility] Donald Sixto /2016 [facility] Outpatient [id number] Khashayar 07/15 07/[address] [facility] Hematpour /2017 [facility] Bedded [id number] Ale 07/16 07/[address] [facility] Outpatient Lord /2017 [facility] Procedures Procedure Code Date Perfomer Comments Source Coronary artery [id number] [facility] Stent placement [id number] [facility]
--- OUTSIDE RECORDS SUMMARY | 2018-07-31 13:03 | XMS REPORT | Summary of Care ---
:1940 Author Organization [facility] Address [address] [place] [id number]- Encounter HQ Encntr_alidelvis(FIN) [id number] Date(s): 07/15/17 - 07/15/[address] Professional Services provided by [facility] [place] [address]- Encounter Diagnosis Paroxysmal atrial fibrillation (Final) - 07/18/17 Tachycardia, unspecified (Final) - Sick sinus syndrome (Final) - Atherosclerotic heart disease of [place] coronary artery without angina pectoris (Final) - Atherosclerosis of aorta (Final) - Other nonspecific abnormal finding of lung field (Final) - Discharge Disposition: Home or Self Care Attending Physician: Ashely Abel MD Referring Physician: Ashely Abel MD Vital Signs Most recent to oldest [Reference Range]: 1 Height 160.02 cm (07/15/17 8:36 AM) Weight 72.727 kg (07/15/17 8:36 AM) Body Mass Index 28.4 m2 (07/15/17 8:36 AM) Problem List Condition Effective Dates Status Health Status Informant Coronary artery disease(Confirmed) Active Diabetes(Confirmed) Active Diabetes(Confirmed) Active HLD (hyperlipidemia)(Confirmed) Resolved HTN (hypertension)(Confirmed) Resolved Hypertension(Confirmed) Active Hypocalcemia(Confirmed) Active Hypokalemia(Confirmed) Active Hypomagnesemia(Confirmed) Active Allergies, Adverse Reactions, Alerts Substance Reaction Severity Status sulfa drugs Active Medications No data available for this section Results CHEM PANEL Most recent to oldest [Reference Range]: 1 eGFR 55 mL/min/1.73m2 1 *NA* (07/15/17 9:33 AM) POC Creatinine [0.5-1.4 mg/dL] 1.0 mg/dL (07/15/17 9:33 AM) 1Result Comment: The eGFR is calculated using the CKD-EPI formula. In most young , healthy individualsthe eGFR will be >90 mL/min/1.73m2. The eGFR declines with age. An eGFR of 60-89 may be normal insome populations, particularly the elderly, for whom the CKD-EPI formula has not been extensively validated. Use of the eGFR is not recommended in the following populations: Individuals with unstable creatinine concentrations, including patients and those with serious co-morbid conditions. Patients with extremes in muscle mass or diet. The data above are obtained from the National Kidney Disease Education Program ( NKDEP) which additionally recommends that when the eGFR is used in patients with extremes of body mass index for purposesof drug dosing, the eGFR should be multiplied by the estimated BMI. Immunizations Not Given Vaccine Date Status Refusal Reason pneumococcal 13-valent vaccine 02/26/17 Not Given Patient Refuses influenza virus vaccine, inactivated 02/26/17 Not Given Patient Refuses Procedures Procedure Date Related Diagnosis Body Site Status Coronary artery bypass graft Completed Stent placement Completed Social History Social History Type Response Smoking Status Never smoker; Ready to change: No; Exposure to Tobacco Smoke None; Cigarette Smoking Last 365 Days No; Reg Smoking Cessation Counseling No entered on: 07/16/17 Assessment and Plan No data available for this section
--- OUTSIDE RECORDS SUMMARY | 2018-07-31 13:03 | XMS REPORT | Summary of Care ---
:1940 Author Organization [facility] Address [address] [place] [id number]- Encounter HQ Antonia_luda(FIN) [id number] Date(s): 07/16/17 - 07/17/[address] Professional Services provided by [facility] [place] [address]- Encounter Diagnosis Paroxysmal atrial fibrillation (Final) - 07/28/17 Sick sinus syndrome (Final) - Atherosclerotic heart disease of [place] coronary artery without angina pectoris (Final) - Personal history of transient ischemic attack (TIA), and cerebral infarction without residual deficits (Final) - Essential (primary) hypertension (Final) - Hyperlipidemia, unspecified (Final) - 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) - Type 2 diabetes mellitus without complications (Final) - Personal history of nicotine dependence (Final) - buttermaker continuous churn (current) use of anticoagulants (Final) - jail (current) use of antithrombotics/antiplatelets (Final) - jail (current) use of insulin (Final) - 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) - Discharge Disposition: Home or Self Care Attending Physician: Ale Lord MD Admitting Physician: Ale Lord MD Referring Physician: Ale Lord MD Vital Signs Most recent to oldest 1 2 3 [Reference Range]: Height 160.02 cm (07/16/17 7:01 AM) Temperature Oral [96.4-99.1 97.9 DegF 98.0 DegF DegF] (07/17/17 7:30 AM) (07/16/17 7:30 AM) Blood Pressure [90-140/60-90 120/64 mmHg 147/67 mmHg 139/65 mmHg mmHg] (07/17/17 7:30 AM) *HI* (07/17/17 3:00 AM) (07/17/17 5:00 AM) Respiratory Rate [14-20 BRMIN] 16 BRMIN 20 BRMIN 20 BRMIN (07/17/17 7:30 AM) (07/16/17 6:00 PM) (07/16/17 5:30 PM) Weight 78.182 kg (07/16/17 7:01 AM) Body Mass Index 30.53 m2 (07/16/17 7:01 AM) Problem List Condition Effective Dates Status Health Status Informant Coronary artery disease(Confirmed) Active Diabetes(Confirmed) Active Diabetes(Confirmed) Active HLD (hyperlipidemia)(Confirmed) Resolved HTN (hypertension)(Confirmed) Resolved Hypertension(Confirmed) Active Hypocalcemia(Confirmed) Active Hypokalemia(Confirmed) Active Hypomagnesemia(Confirmed) Active Allergies, Adverse Reactions, Alerts Substance Reaction Severity Status sulfa drugs Active Medications AMIODarone 200 mg, 1 tab, Route: PO, Drug form: TAB, BID, Dosing Weight 78.182, kg, Start date: 07/17/17 9:00:00 BOILER OPERATOR HELPER, Duration: 30 day, Stop date: 08/15/17 17:00:00 CDT Notes: (Same as: Cordarone) Start Date: 07/17/17 Stop Date: 07/17/17 Status: DiscontinuedAMIODarone 200 mg oral tablet 200 mg, PO, BID, # 60 tab, 3 Refill(s) Start Date: 07/17/17 Status: OrderedANES acetaminophen 1,000 mg, 2 tab, Route: PO, Drug form: TAB, ONCE, Dosing Weight 78.182, kg, PRN Pain Score 1-3, Start date: 07/16/17 14:11:00 BOILER OPERATOR HELPER Notes: Max acetaminophen 4000 mg/day (4 gm/day). (Same as: Tylenol Extra Strength) Start Date: 07/16/17 Stop Date: 07/17/17 Status: DiscontinuedANES fentaNYL 50 microgram, 1 mL, Route: IVP, Drug form: INJ, Q5Min, Dosing Weight 78.182, kg , PRN Pain Score 7-10, Priority: Routine, Start date: 07/16/17 14:11:00 BOILER OPERATOR HELPER, Duration: 2 doses or times, Stop date: Limited # of times Notes: (Same as: Sublimaze) Preservative free. Start Date: 07/16/17 Stop Date: 07/17/17 Status: DiscontinuedANES fentaNYL 25 microgram, 0.5 mL, Route: IVP, Drug form: INJ, Q5Min, Dosing Weight 78.182, kg, PRN Pain Score 4-6, Priority: Routine, Start date: 07/16/17 14:11:00 BOILER OPERATOR HELPER, Duration: 4 doses or times, Stop date: Limited # of times Notes: (Same as: Sublimaze) Preservative free. Start Date: 07/16/17 Stop Date: 07/17/17 Status: DiscontinuedANES flumazenil 0.2 mg, 2 mL, Route: IVP, Drug form: INJ, PRN, Dosing Weight 78.182, kg, PRN Benzodiazepine Reversal, Initial dose, Start date: 07/16/17 14:11:00 BOILER OPERATOR HELPER, Duration: 30 day, Stop date: 08/15/17 15:10:00 CDT Notes: (Same as: Romazicon) Start Date: 07/16/17 Stop Date: 07/17/17 Status: DiscontinuedANES hydrALAZINE 10 mg, 0.5 mL, Route: IVP, Drug form: INJ, Q20Min, Dosing Weight 78.182, kg, PRN Elevated BP, Start date: 07/16/17 14:11:00 BOILER OPERATOR HELPER, Duration: 2 doses or times, Stop date: Limited # of times Notes: (Same as: Apresoline)Push over 5 minutes Start Date: 07/16/17 Stop Date: 07/17/17 Status: DiscontinuedANES metoprolol 1 mg, 1 mL, Route: IVP, Drug form: INJ, Q5Min, Dosing Weight 78.182, kg, PRN Other -See Comment, Start date: 07/16/17 14:11:00 BOILER OPERATOR HELPER, Duration: 5 doses or times, Stop date: Limited # of times Notes: (Same as: Lopressor)Push over 2 minutes Start Date: 07/16/17 Stop Date: 07/17/17 Status: DiscontinuedANES naloxone 0.4 mg, 1 mL, Route: IVP, Drug form: INJ, Q2MIN, Dosing Weight 78.182, kg, PRN Narcotic Reversal, Start date: 07/16/17 14:11:00 BOILER OPERATOR HELPER, Duration: 8 doses or times , Stop date: Limited # of times Notes: Same as Narcan Start Date: 07/16/17 Stop Date: 07/17/17 Status: DiscontinuedANES ondansetron 4 mg, 2 mL, Route: IVP, Drug form: INJ, ONCE, Dosing Weight 78.182, kg, PRN Nausea & Vomiting, Start date: 07/16/17 14:11:00 BOILER OPERATOR HELPER Notes: (Same as: Zoan) MEDICATION WASTE Product Size: 4 mgProduct Wasted: ___ mg Start Date: 07/16/17 Stop Date: 07/17/17 Status: Discontinuedaspirin 81 mg tablet, enteric coated 81 mg, 1 tab, Route: PO, Drug form: ECTAB, Daily, Dosing Weight 78.182, kg, Start date: 07/17/17 9:00:00 BOILER OPERATOR HELPER, Duration: 30 day, Stop date: 08/15/17 9:00:00 CDT Notes: Do not crush or chew.(Same As: Ecotrin) Start Date: 07/17/17 Stop Date: 07/17/17 Status: Discontinuedcisatracurium (ANES) Route: IV, Drug form: INJ, ONCE, Stop date: 07/16/17 12:11:00 BOILER OPERATOR HELPER Start Date: 07/16/17 Stop Date: 07/16/17 Status: Completedcitalopram 10 mg, 1 tab, Route: PO, Drug form: TAB, Daily, Dosing Weight 78.182, kg, Start date: 07/17/17 9:00:00 BOILER OPERATOR HELPER, Duration: 30 day, Stop date: 08/15/17 9:00:00 CDT Start Date: 07/17/17 Stop Date: 07/17/17 Status: DiscontinuedEliquis 2.5 mg, 1 tab, Route: PO, Drug form: TAB, Q12H, Dosing Weight 78.182, kg, Start date: 07/17/17 9:00:00 BOILER OPERATOR HELPER, Duration: 30 day, Stop date: 08/15/17 21:00:00 CDT Notes: Same as: Eliquis Start Date: 07/17/17 Stop Date: 07/17/17 Status: DiscontinuedEliquis 2.5 mg oral tablet 2.5 mg, PO, Q12H, # 60 tab, 3 Refill(s) Start Date: 07/17/17 Status: OrderedEliquis 2.5 mg oral tablet 2.5 mg, PO, Q12H, 0 Refill(s) Start Date: 07/16/17 Stop Date: 07/17/17 Status: DiscontinuedEPINEPHrine (ANES) Route: IV, Drug form: INJ, ONCE, Stop date: 07/16/17 13:36:00 BOILER OPERATOR HELPER Start Date: 07/16/17 Stop Date: 07/16/17 Status: CompletedfentaNYL 50 microgram, Route: IV, ONCE, Dosing Weight 78.182, kg, Start date: 07/16/17 9: 57:00 BOILER OPERATOR HELPER, Stop date: 07/16/17 9:57:00 BOILER OPERATOR HELPER Start Date: 07/16/17 Stop Date: 07/16/17 Status: CompletedfentaNYL (ANES) Route: IV, Drug form: INJ, ONCE, Stop date: 07/16/17 12:11:00 BOILER OPERATOR HELPER Start Date: 07/16/17 Stop Date: 07/16/17 Status: Completedglycopyrrolate (ANES) Route: IV, Drug form: INJ, ONCE, Stop date: 07/16/17 14:31:00 BOILER OPERATOR HELPER Start Date: 07/16/17 Stop Date: 07/16/17 Status: Completedinsulin regular 100 units/mL human recombinant 5 unit, 0.05 mL, Route: SUB-Q, Drug form: SOLN, TID-Before Meals, Dosing Weight 78.182, kg, PRN Blood Glucose Results, Start date: 07/17/17 8:46:00 BOILER OPERATOR HELPER, Duration: 30 day, Stop date: 08/16/17 8:45:00 CDT, hyperglycemia Notes: (Same as: Humulin R) Roll in palms of hands gently; Do not shake vigorously. "single patientuse only"(Restricted to patients requiring a dose &gt ; 60 units)WASTE: F/P - Black; E - Municipal Trash Bin Stable for 28 days at room temperatureExpires in days from Date Start Date: 07/17/17 Stop Date: 07/17/17 Status: DiscontinuedJanuvia 100 mg, 1 tab, Route: PO, Drug form: TAB, Daily, Dosing Weight 78.182, kg, Start date: 07/17/17 9:00:00 BOILER OPERATOR HELPER, Duration: 30 day, Stop date: 08/15/17 9:00:00 CDT Notes: (Same as: Daisy) Start Date: 07/17/17 Stop Date: 07/17/17 Status: DiscontinuedLasix 20 mg oral tablet 20 mg, 1 tab, Route: PO, Drug form: TAB, Daily, Dosing Weight 78.182, kg, Start date: 07/17/17 9:00:00 BOILER OPERATOR HELPER, Duration: 30 day, Stop date: 08/15/17 9:00:00 CDT Notes: (Same as: Lasix) May cause GI upset. Give with food or milk. Start Date: 07/17/17 Stop Date: 07/17/17 Status: Discontinuedmidazolam (ANES) Route: IV, Drug form: SOLN, ONCE, Stop date: 07/16/17 12:11:00 BOILER OPERATOR HELPER Start Date: 07/16/17 Stop Date: 07/16/17 Status: Completedmultivitamin 1, PO, Daily, 0 Refill(s) Start Date: 07/16/17 Status: Orderedneostigmine (ANES) Route: IV, Drug form: INJ, ONCE, Stop date: 07/16/17 14:31:00 BOILER OPERATOR HELPER Start Date: 07/16/17 Stop Date: 07/16/17 Status: CompletedniCARdipine (ANES) + sodium chloride (ANES) 4 mL Route: IV, Drug form: INJ, ONCE, Stop date: 07/16/17 13:31:00 BOILER OPERATOR HELPER Start Date: 07/16/17 Stop Date: 07/16/17 Status: Completednormal saline 0.9% IV 1,000 mL 1,000 mL, Rate: 100 ml/hr, Infuse over: 10 hr, Route: IV, Dosing Weight 78.182 kg, Total Volume: 1,000, Start date: 07/16/17 7:01:00 BOILER OPERATOR HELPER, Duration: 30 day, Stop date: 08/15/17 7:00:00 CDT, 1.89, m2 Start Date: 07/16/17 Stop Date: 07/17/17 Status: Discontinuedondansetron (ANES) Route: IV, Drug form: INJ, ONCE, Stop date: 07/16/17 14:31:00 BOILER OPERATOR HELPER Start Date: 07/16/17 Stop Date: 07/16/17 Status: Completedpantoprazole 40 mg, 1 tab, Route: PO, Drug form: ECTAB, Daily, Dosing Weight 78.182, kg, Start date: 07/17/17 9:00:00 BOILER OPERATOR HELPER, Duration: 30 day, Stop date: 08/15/17 9:00:00 CDT Notes: Tablet should not be chewed or crushed.(Same as: Protonix) Start Date: 07/17/17 Stop Date: 07/17/17 Status: DiscontinuedPlavix 75 mg, 1 tab, Route: PO, Drug form: TAB, Daily, Dosing Weight 78.182, kg, Start date: 07/17/17 9:00:00 BOILER OPERATOR HELPER, Duration: 30 day, Stop date: 08/15/17 9:00:00 CDT Notes: (Same As: Plavix) Start Date: 07/17/17 Stop Date: 07/17/17 Status: DiscontinuedPlavix 75 mg oral tablet 75 mg=1 tab, PO, Daily, 0 Refill(s) Start Date: 07/16/17 Stop Date: 07/17/17 Status: DiscontinuedPlavix 75 mg oral tablet 75 mg=1 tab, PO, Daily, # 90 tab, 1 Refill(s) Start Date: 07/17/17 Status: Orderedpropofol (ANES) Route: IV, Drug form: INJ, ONCE, Stop date: 07/16/17 12:11:00 BOILER OPERATOR HELPER Start Date: 07/16/17 Stop Date: 07/16/17 Status: Completedprotamine (ANES) Route: IV, Drug form: INJ, ONCE, Stop date: 07/16/17 14:31:00 BOILER OPERATOR HELPER Start Date: 07/16/17 Stop Date: 07/16/17 Status: CompletedSodium Chloride 0.9% IV (ANES) 1000 mL Route: IV, Total Volume: 1,000, Start date: 07/16/17 11:20:00 BOILER OPERATOR HELPER, Stop date: 12:20:00 BOILER OPERATOR HELPER Start Date: 07/16/17 Stop Date: 07/16/17 Status: Completedsucralfate 1 gm, 1 tab, Route: PO, Drug form: TAB, BID, Dosing Weight 78.182, kg, Start date: 07/17/17 9:00:00 BOILER OPERATOR HELPER, Duration: 30 day, Stop date: 08/15/17 17:00:00 CDT Notes: May interfere w/enteral feeds - Take 1 hr before or 2 hr after antacids , dairy pdt, meals & minerals - On empty stomach.For patients unable to swallow tablet, dissolve in 10mL - 30mL of water or juice and stir before giving. (Same As: Carafate) Start Date: 07/17/17 Stop Date: 07/17/17 Status: Discontinuedsucralfate 1 g oral tablet 1 gm, PO, BID, # 28 tab, 0 Refill(s) Start Date: 07/17/17 Status: Orderedvalsartan 320 mg, 2 tab, Route: PO, Drug form: TAB, Daily, Dosing Weight 78.182, kg, Start date: 07/17/17 9:00:00 BOILER OPERATOR HELPER, Duration: 30 day, Stop date: 08/15/17 9:00:00 CDT Notes: Same as Diovan Start Date: 07/17/17 Stop Date: 07/17/17 Status: DiscontinuedVersed 2 mg, Route: IVP, ONCE, Dosing Weight 78.182, kg, Start date: 07/16/17 9:57:00 BOILER OPERATOR HELPER, Stop date: 07/16/17 9:57:00 BOILER OPERATOR HELPER Start Date: 07/16/17 Stop Date: 07/16/17 Status: CompletedZocor 40 mg, 1 tab, Route: PO, Drug form: TAB, Bedtime, Dosing Weight 78.182, kg, Start date: 07/17/17 21:00:00 BOILER OPERATOR HELPER, Duration: 30 day, Stop date: 08/15/17 21:00: 00 CDT Notes: (Same as: Zocor) Start Date: 07/17/17 Stop Date: 07/17/17 Status: CanceledZocor 40 mg oral tablet 40 mg=1 tab, PO, Bedtime, 0 Refill(s) Start Date: 07/16/17 Status: Ordered Results BLOOD BANK RESULTS Most recent to oldest [Reference Range]: 1 2 3 ABO/Rh AB NEG *Unknown* (07/16/17 7:05 AM) Antibody Scrn Positive 1 (07/16/17 7:05 AM) AB Int Anti-D *Unknown* (07/16/17 7:05 AM) 1Result Comment: 07/16/2017 08:43 ATTALUKD "Significant Findings of POS ABSC_ called to ROCKY OLIVO_ at [facility]_ by AT_. Read Back OK"ELECTROLYTES Most recent to oldest [Reference Range]: 1 2 3 Sodium Lvl [135-145 mEq/L] 139 mEq/L (07/16/17 7:05 AM) Potassium Lvl [3.5-5.1 mEq/L] 3.9 mEq/L (07/16/17 7:05 AM) Chloride Lvl [95-109 mEq/L] 100 mEq/L (07/16/17 7:05 AM) CO2 [24-32 mEq/L] 30 mEq/L (07/16/17 7:05 AM) AGAP [10.0-20.0 mEq/L] 12.9 mEq/L (07/16/17 7:05 AM) CHEM PANEL Most recent to oldest [Reference Range]: 1 2 3 Creatinine Lvl [0.50-1.40 mg/dL] 1.19 mg/dL (07/16/17 7:05 AM) eGFR 45 mL/min/1.73m2 1 *NA* (07/16/17 7:05 AM) BUN [7-22 mg/dL] 16 mg/dL (07/16/17 7:05 AM) B/C Ratio [6-25] 13 (07/16/17 7:05 AM) Glucose Lvl [70-99 mg/dL] 327 mg/dL *HI* (07/16/17 7:05 AM) Total Protein [6.4-8.4 g/dL] 7.0 g/dL (07/16/17 7:05 AM) Albumin Lvl [3.5-5.0 g/dL] 3.5 g/dL (07/16/17 7:05 AM) Globulin [2.7-4.2 g/dL] 3.5 g/dL (07/16/17 7:05 AM) A/G Ratio [0.7-1.6] 1.0 (07/16/17 7:05 AM) Calcium Lvl [8.5-10.5 mg/dL] 9.4 mg/dL (07/16/17 7:05 AM) Magnesium Lvl [1.8-2.4 mg/dL] 1.5 mg/dL *LOW* (07/16/17 7:05 AM) ALT [0-65 unit/L] 19 unit/L (07/16/17 7:05 AM) AST [0-37 unit/L] 24 unit/L (07/16/17 7:05 AM) Alk Phos [39-136 unit/L] 73 unit/L (07/16/17 7:05 AM) Bili Total [0.2-1.3 mg/dL] 0.5 mg/dL (07/16/17 7:05 AM) 1Result Comment: The eGFR is calculated [...] eGFR should be multiplied by the estimated BMI.HEMATOLOGY Most recent to oldest 1 2 3 [Reference Range]: WBC [3.7-10.4 K/CMM] 7.2 K/CMM (07/16/17 7:05 AM) RBC [4.20-5.40 M/CMM] 3.82 M/CMM *LOW* (07/16/17 7:05 AM) Hgb [12.0-16.0 g/dL] 10.6 g/dL *LOW* (07/16/17 7:05 AM) Hct [36.0-48.0 %] 31.6 % *LOW* (07/16/17 7:05 AM) MCV [80.0-98.0 fL] 82.7 fL (07/16/17 7:05 AM) MCH [27.0-31.0 pg] 27.7 pg (07/16/17 7:05 AM) MCHC [32.0-36.0 g/dL] 33.5 g/dL (07/16/17 7:05 AM) RDW [11.5-14.5 %] 15.7 % *HI* (07/16/17 7:05 AM) MPV [7.4-10.4 fL] 8.4 fL (07/16/17 7:05 AM) Platelet [133-450 K/CMM] 225 K/CMM (07/16/17 7:05 AM) Segs [45.0-75.0 %] 67.7 % (07/16/17 7:05 AM) Lymphocytes [20.0-40.0 %] 17.6 % *LOW* (07/16/17 7:05 AM) Monocytes [2.0-12.0 %] 11.7 % (07/16/17 7:05 AM) Eosinophils [0.0-4.0 %] 2.2 % (07/16/17 7:05 AM) Basophils [0.0-1.0 %] 0.8 % (07/16/17 7:05 AM) Segs-Bands # [1.5-8.1 K/CMM] 4.9 K/CMM (07/16/17 7:05 AM) Lymphocytes # [1.0-5.5 1.3 K/CMM K/CMM] (07/16/17 7:05 AM) Monocytes # [0.0-0.8 K/CMM] 0.8 K/CMM (07/16/17 7:05 AM) Eosinophils # [0.0-0.5 0.2 K/CMM K/CMM] (07/16/17 7:05 AM) Basophils # [0.0-0.2 K/CMM] 0.1 K/CMM (07/16/17 7:05 AM) PT [12.0-14.7 seconds] 15.4 seconds *HI* (07/16/17 7:05 AM) INR [0.85-1.17] 1.21 *HI* (07/16/17 7:05 AM) POC Activated Clotting Time 142 seconds 349 seconds 403 seconds *NA* *NA* *NA* (07/16/17 3:36 PM) (07/16/17 2:01 PM) (07/16/17 1:11 PM) PTT [22.9-35.8 seconds] 30.7 seconds (07/16/17 7:05 AM) Immunizations Not Given Vaccine Date Status Refusal [...]
--- OUTSIDE RECORDS SUMMARY | 2018-07-31 13:03 | XMS REPORT | Summary of Care ---
:1940 Author Organization [facility] Address [address] [place] [id number]- Encounter HQ Encntr_luda(FIN) [id number] Date(s): 03/03/17 - 03/05/[address] Professional Services provided by [facility] [place] [address]- Discharge Disposition: Home or Self Care Attending Physician: Conner Henson MD Admitting Physician: Conner Henson MD Referring Physician: Mushtaq Carrasoc MD Vital Signs Most recent to oldest 1 2 3 [Reference Range]: Height 160.02 cm (03/03/17 8:06 PM) Temperature Oral 98.7 DegF 98.6 DegF 98.9 DegF [96.4-99.1 DegF] (03/05/17 12:00 PM) (03/05/17 8:00 AM) (03/05/17 4:00 AM) Blood Pressure 143/65 mmHg 137/61 mmHg 128/60 mmHg [90-140/60-90 mmHg] *HI* (03/05/17 1:00 PM) (03/05/17 12:00 PM) (03/05/17 2:00 PM) Respiratory Rate [14-20 18 BRMIN 18 BRMIN 18 BRMIN BRMIN] (03/05/17 2:00 PM) (03/05/17 1:00 PM) (03/05/17 12:00 PM) Weight 70.938 kg (03/03/17 8:06 PM) Body Mass Index 27.7 m2 (03/03/17 8:06 PM) Problem List Condition Effective Dates Status Health Status Informant Coronary artery disease(Confirmed) Active Diabetes(Confirmed) Active Diabetes(Confirmed) Active HLD (hyperlipidemia)(Confirmed) Resolved HTN (hypertension)(Confirmed) Resolved Hypertension(Confirmed) Active Hypocalcemia(Confirmed) Active Hypokalemia(Confirmed) Active Hypomagnesemia(Confirmed) Active Allergies, Adverse Reactions, Alerts Substance Reaction Severity Status sulfa drugs Active Medications acetaminophen 650 mg, 2 tab, Route: PO, Drug form: TAB, Q4H, Dosing Weight 70.938, kg, PRN For Temp > 100.4 F, Start date: 03/03/17 21:50:00 CDT, Duration: 30 day, Stop date: 04/02/17 21:49:00 ENERGY TRADER Notes: Do not exceed 4 gm/day. (Same as: Tylenol) Start Date: 03/03/17 Stop Date: 03/05/17 Status: DiscontinuedamLODIPine 10 mg, 1 tab, Route: PO, Drug form: TAB, Daily, Dosing Weight 70.938, kg, Start date: 03/04/17 9:00:00 CDT, Duration: 30 day, Stop date: 04/02/17 9:00:00 ENERGY TRADER Notes: (Same as: Norvasc) Start Date: 03/04/17 Stop Date: 03/05/17 Status: Discontinuedaspirin 81 mg tablet, enteric coated 81 mg, 1 tab, Route: PO, Drug form: ECTAB, Daily, Dosing Weight 70.938, kg, Start date: 03/04/17 9:00:00 CDT, Duration: 30 day, Stop date: 04/02/17 9:00:00 ENERGY TRADER Notes: Do not crush or chew.(Same As: Ecotrin) Start Date: 03/04/17 Stop Date: 03/05/17 Status: Discontinuedatorvastatin 80 mg, 1 tab, Route: PO, Drug form: TAB, Bedtime, Dosing Weight 70.938, kg, Start date: 03/04/17 21:00:00 CDT, Duration: 30 day, Stop date: 04/02/17 21:00: 00 ENERGY TRADER Notes: Same as Lipitor Start Date: 03/04/17 Stop Date: 03/05/17 Status: Discontinuedbenzonatate 100 mg, 1 cap, Route: PO, Drug form: CAP, TID, Dosing Weight 70.938, kg, PRN Cough, Start date: 03/04/17 0:08:00 CDT, Duration: 30 day, Stop date: 04/03/17 0 :07:00 ENERGY TRADER Notes: (Same As: Nay Wise)"Do Not Crush" Start Date: 03/04/17 Stop Date: 03/05/17 Status: DiscontinuedBlood Glucose Monitor 1 ea, MISC, Daily, Use as directed., # 1 ea, 0 Refill(s) Start Date: 03/05/17 Status: Orderedcalcium carbonate 500 mg (200 mg elemental calcium) oral tablet 500 mg, 1 tab, Route: PO, Drug form: CHEWTAB, PRN, Dosing Weight 70.938, kg, PRN Abnormal Lab Result, FOR ICU USE ONLY, Start date: 03/03/17 21:50:00 CDT, Duration: 30 day, Stop date: 04/02/17 20:49:00CST Notes: (Same As: Leslye)Calcium Carbonate 500 er=522 mg elemental calcium Dose=_ mg calcium carbonate ( mg elemental calcium) Start Date: 03/03/17 Stop Date: 03/05/17 Status: Discontinuedcalcium carbonate 500 mg (200 mg elemental calcium) oral tablet 1,000 mg, 2 tab, Route: PO, Drug form: CHEWTAB, PRN, Dosing Weight 70.938, kg, PRN Abnormal Lab Result, FOR ICU USE ONLY, Start date: 03/03/17 21:50:00 CDT, Duration: 30 day, Stop date: 04/02/17 20:49:00 ENERGY TRADER Notes: (Same As: Leslye)Calcium Carbonate 500 iy=652 mg elemental calcium Dose=_ mg calcium carbonate ( mg elemental calcium) Start Date: 03/03/17 Stop Date: 03/05/17 Status: Discontinuedcalcium gluconate + sodium chloride 0.9% INJ 50 mL 1 gm, 10 mL, Route: IVPB, PRN, Dosing Weight 70.938, kg, PRN Abnormal Lab Result , Start date: 03/03/17 21:50:00 CDT, Duration: 30 day, Stop date: 04/02/17 20:49 :00 ENERGY TRADER, FOR ICU USE ONLY Notes: WASTE: F/P - Sink; E - Municipal Trash Bin Start Date: 03/03/17 Stop Date: 03/05/17 Status: Discontinuedcitalopram 10 mg, Route: PO, Drug form: TAB, Daily, Dosing Weight 70.938, kg, Start date: 03/04/17 9:00:00 CDT,Duration: 30 day, Stop date: 04/02/17 9:00:00 ENERGY TRADER Start Date: 03/04/17 Stop Date: 03/05/17 Status: DiscontinuedDextrose 50% Syringe 12.5 gm, 25 mL, Route: IVP, Drug Form: INJ, Dosing Weight 70.938, kg, PRN, PRN Blood Glucose Results, Start date: 03/04/17 1:20:00 CDT, Duration: 30 day, Stop date: 04/03/17 0:19:00 ENERGY TRADER Start Date: 03/04/17 Stop Date: 03/05/17 Status: DiscontinuedDextrose 50% Syringe 25 gm, 50 mL, Route: IVP, Drug Form: INJ, Dosing Weight 70.938, kg, PRN, PRN Blood Glucose Results, Start date: 03/04/17 1:20:00 CDT, Duration: 30 day, Stop date: 04/03/17 0:19:00 ENERGY TRADER Start Date: 03/04/17 Stop Date: 03/05/17 Status: Discontinuedglucagon 1 mg, Route: IM, Drug form: PDR/INJ, PRN, Dosing Weight 70.938, kg, PRN Blood Glucose Results, Startdate: 03/04/17 1:20:00 CDT, Duration: 30 day, Stop date: 04/03/17 0:19:00 ENERGY TRADER Start Date: 03/04/17 Stop Date: 03/05/17 Status: Discontinuedinfluenza virus vaccine, inactivated 0.5 mL, Route: IM, Drug Form: SUSP, Daily, Start date: 03/04/17 9:00:00 CDT, Duration: 1 doses or times, Stop date: 03/04/17 9:00:00 CDT Notes: (Same as: Fluzone Quadrivalent, Fluarix Quadrivalent)For 3 years of age and older (0.5 mL IM)Shake well before use Start Date: 03/04/17 Stop Date: 03/04/17 Status: CanceledInsulin Needle/Syringe Combo Misc/Other 1 ea, MISC, TID, # 100 ea, 11 Refill(s) Start Date: 03/05/17 Stop Date: 03/02/29 Status: OrderedInsulin regular 3 unit, 0.03 mL, Route: SUB-Q, Drug form: SOLN, Bedtime, Dosing Weight 70.938, kg, PRN Blood GlucoseResults, Start date: 03/04/17 1:20:00 CDT, Duration: 30 day , Stop date: 04/03/17 1:19:00 ENERGY TRADER Notes: (Same as: Humulin R) Roll in palms of hands gently; Do not shake vigorously. "single patientuse only"(Restricted to patients requiring a dose > 60 units)WASTE: F/P - Black; E - Municipal Trash Bin Stable for 28 days at room temperatureExpires in days from Date Start Date: 03/04/17 Stop Date: 03/05/17 Status: DiscontinuedInsulin regular 2 unit, 0.02 mL, Route: SUB-Q, Drug form: SOLN, Bedtime, Dosing Weight 70.938, kg, PRN Blood GlucoseResults, Start date: 03/04/17 1:20:00 CDT, Duration: 30 day , Stop date: 04/03/17 1:19:00 ENERGY TRADER Notes: (Same as: Humulin R) Roll in palms of hands gently; Do not shake vigorously. "single patientuse only"(Restricted to patients requiring a dose > 60 units)WASTE: F/P - Black; E - Municipal Trash Bin Stable for 28 days at room temperatureExpires in days from Date Start Date: 03/04/17 Stop Date: 03/05/17 Status: DiscontinuedInsulin regular 1 unit, 0.01 mL, Route: SUB-Q, Drug form: SOLN, Bedtime, Dosing Weight 70.938, kg, PRN Blood GlucoseResults, Start date: 03/04/17 1:20:00 CDT, Duration: 30 day , Stop date: 04/03/17 1:19:00 ENERGY TRADER Notes: (Same as: Humulin R) Roll in palms of hands gently; Do not shake vigorously. "single patientuse only"(Restricted to patients requiring a dose > 60 units)WASTE: F/P - Black; E - Municipal Trash Bin Stable for 28 days at room temperatureExpires in days from Date Start Date: 03/04/17 Stop Date: 03/05/17 Status: DiscontinuedInsulin regular 4 unit, 0.04 mL, Route: SUB-Q, Drug form: SOLN, TID-Before Meals, Dosing Weight 70.938, kg, PRN Blood Glucose Results, Start date: 03/04/17 1:20:00 CDT, Duration: 30 day, Stop date: 04/03/17 1:19:00 ENERGY TRADER Notes: (Same as: Humulin R) Roll in palms of hands gently; Do not shake vigorously. "single patientuse only"(Restricted to patients requiring a dose > 60 units)WASTE: F/P - Black; E - Municipal Trash Bin Stable for 28 days at room temperatureExpires in days from Date Start Date: 03/04/17 Stop Date: 03/05/17 Status: DiscontinuedInsulin regular 4 unit, 0.04 mL, Route: SUB-Q, Drug form: SOLN, Bedtime, Dosing Weight 70.938, kg, PRN Blood GlucoseResults, Start date: 03/04/17 1:20:00 CDT, Duration: 30 day , Stop date: 04/03/17 1:19:00 ENERGY TRADER Notes: (Same as: Humulin R) Roll in palms of hands gently; Do not shake vigorously. "single patientuse only"(Restricted to patients requiring a dose > 60 units)WASTE: F/P - Black; E - Municipal Trash Bin Stable for 28 days at room temperatureExpires in days from Date Start Date: 03/04/17 Stop Date: 03/05/17 Status: DiscontinuedInsulin regular 1 unit, 0.01 mL, Route: SUB-Q, Drug form: SOLN, TID-Before Meals, Dosing Weight 70.938, kg, PRN Blood Glucose Results, Start date: 03/04/17 1:20:00 CDT, Duration: 30 day, Stop date: 04/03/17 1:19:00 ENERGY TRADER Notes: (Same as: Humulin R) Roll in palms of hands gently; Do not shake vigorously. "single patientuse only"(Restricted to patients requiring a dose > 60 units)WASTE: F/P - Black; E - Municipal Trash Bin Stable for 28 days at room temperatureExpires in days from Date Start Date: 03/04/17 Stop Date: 03/05/17 Status: DiscontinuedInsulin regular 3 unit, 0.03 mL, Route: SUB-Q, Drug form: SOLN, TID-Before Meals, Dosing Weight 70.938, kg, PRN Blood Glucose Results, Start date: 03/04/17 1:20:00 CDT, Duration: 30 day, Stop date: 04/03/17 1:19:00 ENERGY TRADER Notes: (Same as: Humulin R) Roll in palms of hands gently; Do not shake vigorously. "single patientuse only"(Restricted to patients requiring a dose > 60 units)WASTE: F/P - Black; E - Municipal Trash Bin Stable for 28 days at room temperatureExpires in days from Date Start Date: 03/04/17 Stop Date: 03/05/17 Status: DiscontinuedInsulin regular 2 unit, 0.02 mL, Route: SUB-Q, Drug form: SOLN, TID-Before Meals, Dosing Weight 70.938, kg, PRN Blood Glucose Results, Start date: 03/04/17 1:20:00 CDT, Duration: 30 day, Stop date: 04/03/17 1:19:00 ENERGY TRADER Notes: (Same as: Humulin R) Roll in palms of hands gently; Do not shake vigorously. "single patientuse only"(Restricted to patients requiring a dose > 60 units)WASTE: F/P - Black; E - Municipal Trash Bin Stable for 28 days at room temperatureExpires in days from Date Start Date: 03/04/17 Stop Date: 03/05/17 Status: DiscontinuedInsulin regular 5 unit, 0.05 mL, Route: SUB-Q, Drug form: SOLN, TID-Before Meals, Dosing Weight 70.938, kg, PRN Blood Glucose Results, Start date: 03/04/17 1:20:00 CDT, Duration: 30 day, Stop date: 04/03/17 1:19:00 ENERGY TRADER Notes: (Same as: Humulin R) Roll in palms of hands gently; Do not shake vigorously. "single patientuse only"(Restricted to patients requiring a dose > 60 units)WASTE: F/P - Black; E - Municipal Trash Bin Stable for 28 days at room temperatureExpires in days from Date Start Date: 03/04/17 Stop Date: 03/05/17 Status: DiscontinuedInsulin regular 5 unit, 0.05 mL, Route: SUB-Q, Drug form: SOLN, TID-Before Meals, Dosing Weight 70.938, kg, Start date: 03/04/17 7:30:00 CDT, Duration: 30 day, Stop date: 04/02 16:30:00 ENERGY TRADER Notes: (Same as: Humulin R) Roll in palms of hands gently; Do not shake vigorously. "single patientuse only"(Restricted to patients requiring a dose > 60 units)WASTE: F/P - Black; E - Municipal Trash Bin Stable for 28 days at room temperatureExpires in days from Date Start Date: 03/04/17 Stop Date: 03/05/17 Status: Discontinuedinsulin regular 100 units/mL human recombinant 5 unit, SUB-Q, TID-Before Meals, PRN Blood Glucose Results, # 1 vial, 2 Refill(s ) Start Date: 03/05/17 Status: OrderedLactated Ringers (Bolus) IV 1,000 mL, 1,000 ml/hr, Infuse Over: 1 hr, Route: IVPB, 1,000, Drug form: INJ, ONCE, Priority: STAT, Dosing Weight 70.938 kg, Start date: 03/04/17 1:23:00 CDT , Duration: 1 doses or times, Stop date: 03/04/17 1:23:00 CDT Start Date: 03/04/17 Stop Date: 03/04/17 Status: DiscontinuedLancets 1 box, MISC, Daily, # 1 box, 0 Refill(s) Start Date: 03/05/17 Status: Orderedmagnesium oxide 800 mg, 2 tab, Route: PO, Drug form: TAB, PRN, Dosing Weight 70.938, kg, PRN Abnormal Lab Result, FOR ICU USE ONLY, Start date: 03/03/17 21:50:00 CDT, Duration: 30 day, Stop date: 04/02/17 20:49:00 ENERGY TRADER Notes: (Same as: Mag-Ox 400)Magnesium oxide [id number] elemental magnesiumDose= ____mg magnesium oxide (___mg elemental magnesium) Start Date: 03/03/17 Stop Date: 03/05/17 Status: Discontinuedmagnesium sulfate 2 gm, 50 mL, Route: IVPB, Drug form: INJ, PRN, Dosing Weight 70.938, kg, PRN Abnormal Lab Result, Start date: 03/03/17 21:50:00 CDT, Duration: 30 day, Stop date: 04/02/17 20:49:00 ENERGY TRADER, FOR ICU USE ONLY Notes: WASTE: F/P - Sink; E - Municipal Trash Bin Start Date: 03/03/17 Stop Date: 03/05/17 Status: DiscontinuedNS (Bolus) IV 500 mL, 100 ml/hr, Route: IV, ONCE, Dosing Weight 70.938 kg, Start date: 10:39:00 CDT, Stopdate: 03/04/17 10:39:00 CDT Start Date: 03/04/17 Stop Date: 03/04/17 Status: Deletednystatin topical 100,000 units/g powder 1 appl, Route: TOP, PRN, Drug form: PWDR, PRN For Fungal Prophylaxis, Start date : 03/03/17 21:50:00 CDT, Duration: 30 day, Stop date: 04/02/17 20:49:00 ENERGY TRADER Notes: (Same as:Mycostatin, Nilstat) For external use only. Start Date: 03/03/17 Stop Date: 03/05/17 Status: Discontinuedpantoprazole 40 mg, Route: IVP, Drug form: INJ, Daily, Dosing Weight 70.938, kg, Start date: 03/04/17 9:00:00 CDT, Duration: 30 day, Stop date: 04/02/17 9:00:00 ENERGY TRADER Notes: For IV push reconstitute with 10 ml 0.9% sodium chloride and push over 2 minutes. (Same as: Protonix) Start Date: 03/04/17 Stop Date: 03/04/17 Status: Canceledpantoprazole 40 mg, 1 tab, Route: PO, Drug form: ECTAB, Before Breakfast, Dosing Weight 70.938, kg, Start date: 03/04/17 7:30:00 CDT, Duration: 30 day, Stop date: 04/02 7:30:00 ENERGY TRADER Notes: Tablet should not be chewed or crushed.(Same as: Protonix) Start Date: 03/04/17 Stop Date: 03/05/17 Status: Discontinuedpneumococcal 13-valent vaccine 0.5 mL, Route: IM, Drug Form: INJ, Daily, Start date: 03/04/17 9:00:00 CDT, Duration: 1 doses or times, Stop date: 03/04/17 9:00:00 CDT Notes: Shake well prior to use (Same as: Prevnar 13) Start Date: 03/04/17 Stop Date: 03/04/17 Status: Canceledpotassium chloride 20 mEq, 15 mL, Route: NJ, Drug form: LIQ, PRN, Dosing Weight 70.938, kg, PRN Abnormal Lab Result, Start date: 03/03/17 21:50:00 CDT, Duration: 30 day, Stop date: 04/02/17 20:49:00 ENERGY TRADER, FOR ICU USE ONLY Notes: (Same as: Potassium Chloride) Start Date: 03/03/17 Stop Date: 03/05/17 Status: Discontinuedpotassium chloride 20 mEq, 1 tab, Route: PO, Drug form: ERTAB, PRN, Dosing Weight 70.938, kg, PRN Abnormal Lab Result, Start date: 03/03/17 21:50:00 CDT, Duration: 30 day, Stop date: 04/02/17 20:49:00 ENERGY TRADER, FOR ICU USE ONLY Notes: (Same as: K-Dur 20)"Do Not Crush" With food and full glass of water Start Date: 03/03/17 Stop Date: 03/05/17 Status: Discontinuedpotassium chloride 10 mEq, 50 mL, Route: IVPB, Drug form: INJ, PRN, Dosing Weight 70.938, kg, PRN Abnormal Lab Result, Via peripheral line, Start date: 03/03/17 21:50:00 CDT, Duration: 30 day, Stop date: 04/02/17 20:49:00 ENERGY TRADER, FOR ICU USE ONLY Notes: (Same as: KCL) Infuse over 2 hours. Start Date: 03/03/17 Stop Date: 03/05/17 Status: Discontinuedpotassium chloride 20 mEq, 100 mL, Route: IVPB, Drug form: INJ, PRN, Dosing Weight 70.938, kg, PRN Abnormal Lab Result,Via central line, Start date: 03/03/17 21:50:00 CDT, Duration: 30 day, Stop date: 04/02/17 20:49:00 ENERGY TRADER, FOR ICU USE ONLY Notes: (Same as: KCL) Infuse no faster than 10 mEq/hr if given peripherally. Start Date: 03/03/17 Stop Date: 03/05/17 Status: Discontinuedpotassium phosphate + sodium chloride 0.9% INJ 250 mL 45 mmol, 15 mL, Route: IVPB, PRN, Dosing Weight 70.938, kg, PRN Abnormal Lab Result, Start date: 03/03/17 21:50:00 CDT, Duration: 30 day, Stop date: 20:49:00 ENERGY TRADER, FOR ICU USE ONLY Notes: (Same as: K Phosphate.) 1 mMol phoshate has 1.47 mEq potassium Infuse over 4 hours Start Date: 03/03/17 Stop Date: 03/05/17 Status: Discontinuedpotassium phosphate + sodium chloride 0.9% INJ 250 mL 15 mmol, 5 mL, Route: IVPB, PRN, Dosing Weight 70.938, kg, PRN Abnormal Lab Result, Start date: 03/03/17 21:50:00 CDT, Duration: 30 day, Stop date: 20:49:00 ENERGY TRADER, FOR ICU USE ONLY Notes: (Same as: K Phosphate.) 1 mMol phoshate has 1.47 mEq potassium Infuse over 4 hours Start Date: 03/03/17 Stop Date: 03/05/17 Status: Discontinuedpotassium phosphate + sodium chloride 0.9% INJ 250 mL 30 mmol, 10 mL, Route: IVPB, PRN, Dosing Weight 70.938, kg, PRN Abnormal Lab Result, Start date: 03/03/17 21:50:00 CDT, Duration: 30 day, Stop date: 20:49:00 ENERGY TRADER, FOR ICU USE ONLY Notes: (Same as: K Phosphate.) 1 mMol phoshate has 1.47 mEq potassium Infuse over 4 hours Start Date: 03/03/17 Stop Date: 03/05/17 Status: Discontinuedpotassium phosphate-sodium phosphate 250 mg-280 mg-160 mg oral powder for reconstitution 2 pkt, Route: PO, Drug Form: PDR/REC, Dosing Weight 70.938, kg, PRN, PRN Abnormal Lab Result, FOR ICU USE ONLY, Start date: 03/03/17 21:50:00 CDT, Duration: 30 day, Stop date: 04/02/17 20:49:00 ENERGY TRADER Notes: (Same as: Phos-NaK) Each 1.5 gm pkt has 250mg phosphorous. Mix w/2.5oz water and stir. Start Date: 03/03/17 Stop Date: 03/05/17 Status: DiscontinuedSaline Flush 0.9% 10 ml, Route: IVP, Drug Form: INJ, Dosing Weight 70.938, kg, Q12H, Start date: 03/04/17 9:00:00 CDT,Duration: 30 day, Stop date: 04/02/17 21:00:00 ENERGY TRADER Notes: (Same as: BD Posiflush) Start Date: 03/04/17 Stop Date: 03/05/17 Status: DiscontinuedSaline Flush 0.9% 10 ml, Route: IVP, Drug Form: INJ, Dosing Weight 70.938, kg, PRN, PRN Line Flush , Start date: 03/03/17 21:50:00 CDT, Duration: 30 day, Stop date: 04/02/17 20:49 :00 ENERGY TRADER Notes: (Same as: BD Posiflush) Start Date: 03/03/17 Stop Date: 03/05/17 Status: DiscontinuedSodium Chloride 0.9% (Bolus) IV 1,000 mL, 1,000 ml/hr, Infuse Over: 1 hr, Route: IV, 1,000, Drug form: INJ, ONCE , Priority: STAT, Dosing Weight 70.938 kg, Start date: 03/04/17 1:34:00 CDT, Duration: 1 doses or times, Stop date: 03/04/17 1:34:00 CDT Start Date: 03/04/17 Stop Date: 03/04/17 Status: Completedsodium phosphate + sodium chloride 0.9% INJ 250 mL 45 mmol, 15 mL, Route: IVPB, PRN, Dosing Weight 70.938, kg, PRN Abnormal Lab Result, Start date: 03/03/17 21:50:00 CDT, Duration: 30 day, Stop date: 20:49:00 ENERGY TRADER, FOR ICU USE ONLY Start Date: 03/03/17 Stop Date: 03/05/17 Status: Discontinuedsodium phosphate + sodium chloride 0.9% INJ 250 mL 30 mmol, 10 mL, Route: IVPB, PRN, Dosing Weight 70.938, kg, PRN Abnormal Lab Result, Start date: 03/03/17 21:50:00 CDT, Duration: 30 day, Stop date: 20:49:00 ENERGY TRADER, FOR ICU USE ONLY Start Date: 03/03/17 Stop Date: 03/05/17 Status: Discontinuedsodium phosphate + sodium chloride 0.9% INJ 250 mL 15 mmol, 5 mL, Route: IVPB, PRN, Dosing Weight 70.938, kg, PRN Abnormal Lab Result, Start date: 03/03/17 21:50:00 CDT, Duration: 30 day, Stop date: 20:49:00 ENERGY TRADER, FOR ICU USE ONLY Start Date: 03/03/17 Stop Date: 03/05/17 Status: Discontinuedsotalol AF 80 mg oral tablet 40 mg, 0.5 tab, Route: PO, Drug form: TAB, BID, Dosing Weight 70.938, kg, Start date: 03/04/17 9:00:00 CDT, Duration: 30 day, Stop date: 04/02/17 17:00:00 ENERGY TRADER Notes: (Same As: Betapace)40 mg=1/2 x 80 mg TAB Start Date: 03/04/17 Stop Date: 03/05/17 Status: Discontinuedticagrelor 90 mg, 1 tab, Route: PO, Drug form: TAB, Q12H, Dosing Weight 70.938, kg, Start date: 03/04/17 9:00:00 CDT, Duration: 30 day, Stop date: 04/02/17 21:00:00 ENERGY TRADER Notes: (Same as: Brilinta) Start Date: 03/04/17 Stop Date: 03/05/17 Status: Discontinuedvalsartan 160 mg, 1 tab, Route: PO, Drug form: TAB, Daily, Dosing Weight 70.938, kg, Start date: 03/04/17 9:00:00 CDT, Stop date: 04/02/17 9:00:00 ENERGY TRADER Notes: Same as Diovan Start Date: 03/04/17 Stop Date: 03/05/17 Status: Discontinued Results ELECTROLYTES Most recent to oldest 1 2 3 [Reference Range]: Sodium Lvl [135-145 mEq/L] 135 mEq/L 132 mEq/L 135 mEq/L (03/05/17 3:53 AM) *LOW* (03/04/17 2:59 AM) (03/04/17 2:47 PM) Potassium Lvl [3.5-5.1 4.1 mEq/L 3.8 mEq/L 2.7 mEq/L 1 mEq/L] (03/05/17 3:53 AM) (03/04/17 2:47 PM) *CRIT* (03/04/17 2:59 AM) Chloride Lvl [95-109 mEq/L] 100 mEq/L 96 mEq/L 94 mEq/L (03/05/17 3:53 AM) (03/04/17 2:47 PM) *LOW* (03/04/17 2:59 AM) CO2 [24-32 mEq/L] 25 mEq/L 27 mEq/L 27 mEq/L (03/05/17 3:53 AM) (03/04/17 2:47 PM) (03/04/17 2:59 AM) AGAP [10.0-20.0 mEq/L] 14.1 mEq/L 12.8 mEq/L 16.7 mEq/L (03/05/17 3:53 AM) (03/04/17 2:47 PM) (03/04/17 2:59 AM) 1Result Comment: Critical Result(s) called to Kalyan Garza at 03/04/2017 05:24 by ET. Read back OK.CHEM PANEL Most recent to oldest 1 2 3 [Reference Range]: Creatinine Lvl [0.50-1.40 0.83 mg/dL 1.07 mg/dL 1.20 mg/dL mg/dL] (03/05/17 3:53 AM) (03/04/17 2:47 PM) (03/04/17 2:59 AM) eGFR 69 mL/min/1.73m2 1 51 mL/min/1.73m2 2 44 mL/min/1.73m2 3 *NA* *NA* *NA* (03/05/17 3:53 AM) (03/04/17 2:47 PM) (03/04/17 2:59 AM) BUN [7-22 mg/dL] 18 mg/dL 25 mg/dL 27 mg/dL (03/05/17 3:53 AM) *HI* *HI* (03/04/17 2:47 PM) (03/04/17 2:59 AM) Glucose Lvl [70-99 mg/dL] 129 mg/dL 206 mg/dL 109 mg/dL *HI* *HI* *HI* (03/05/17 3:53 AM) (03/04/17 2:47 PM) (03/04/17 2:59 AM) Calcium Lvl [8.5-10.5 mg/dL] 8.7 mg/dL 8.2 mg/dL 8.3 mg/dL (03/05/17 3:53 AM) *LOW* *LOW* (03/04/17 2:47 PM) (03/04/17 2:59 AM) Phosphorus [2.5-4.5 mg/dL] 2.0 mg/dL 2.2 mg/dL 2.7 mg/dL *LOW* *LOW* (03/04/17 2:59 AM) (03/05/17 3:53 AM) (03/04/17 2:47 PM) Magnesium Lvl [1.8-2.4 mg/dL] 2.0 mg/dL 2.3 mg/dL 1.6 mg/dL (03/05/17 3:53 AM) (03/04/17 2:47 PM) *LOW* (03/04/17 2:59 AM) Lactic Acid Lvl [0.5-2.2 1.6 mMol/L mMol/L] (03/03/17 11:45 PM) Procalcitonin Lvl [0.00-0.10 0.44 ng/mL ng/mL] *HI* (03/03/17 11:45 PM) 1Result Comment: The eGFR is calculated using the CKD-EPI formula. In most young , healthy individualsthe eGFR will be >90 mL/min/1.73m2. The eGFR declines with age. An eGFR of 60-89 may be normal in some populations, particularly the elderly, for whom [...] eGFR should be multiplied by the estimated BMI.2Result Comment: The eGFR is calculated using the CKD-EPI formula. In most young, healthy individualsthe eGFR will be >90 mL/ min/1.73m2. The eGFR declines with age. An eGFR of 60-89 may be normal in some populations, particularly the elderly, for whom [...] eGFR should be multiplied by the estimated BMI.3Result Comment: The eGFR is calculated using the CKD-EPI formula. In most young, healthy individualsthe eGFR will be >90 mL/ min/1.73m2. The eGFR declines with age. An eGFR of 60-89 may be normal in some populations, particularly the elderly, for whom [...] eGFR should be multiplied by the estimated BMI.PARATHYROID PROFILE Most recent to oldest 1 2 3 [Reference Range]: Ca Ion WB [1.05-1.25 mMol/L] 1.11 mMol/L 1.02 mMol/L 1.00 mMol/L (03/05/17 3:53 AM) *LOW* *LOW* (03/04/17 2:47 PM) (03/04/17 2:59 AM) Ca Norm WB [1.05-1.25 1.12 mMol/L 1.04 mMol/L 0.98 mMol/L mMol/L] (03/05/17 3:53 AM) *LOW* *LOW* (03/04/17 2:47 PM) (03/04/17 2:59 AM) URINE AND STOOL Most recent to oldest [Reference Range]: 1 2 3 UA Turbidity [Clear] Clear (03/04/17 4:40 PM) UA Color [Yellow] Yellow *NA* (03/04/17 4:40 PM) UA pH [5.0-8.0] 5.0 (03/04/17 4:40 PM) UA Spec Grav [<=1.030] 1.013 (03/04/17 4:40 PM) UA Glucose [Negative mg/dL] Negative mg/dL *NA* (03/04/17 4:40 PM) UA Blood [Negative] Negative (03/04/17 4:40 PM) UA Ketones [Negative mg/dL] Negative mg/dL *NA* (03/04/17 4:40 PM) UA Protein [Negative mg/dL] Negative mg/dL (03/04/17 4:40 PM) UA Urobilinogen [0.1-1.0 mg/dL] <=1.0 mg/dL *NA* (03/04/17 4:40 PM) UA Bili [Negative] Negative *NA* (03/04/17 4:40 PM) UA Leuk Est [Negative] Trace *ABN* (03/04/17 4:40 PM) UA Nitrite [Negative] Negative (03/04/17 4:40 PM) UA WBC [0-5 /HPF] 2 /HPF (03/04/17 4:40 PM) UA RBC [0-2 /HPF] 1 /HPF (03/04/17 4:40 PM) UA Bacteria [None Seen /HPF] Occasional /HPF *NA* (03/04/17 4:40 PM) UA Sq Epi [Few /LPF] Occasional /LPF *NA* (03/04/17 4:40 PM) UA Mucus [None Seen /LPF] Few /LPF *NA* (03/04/17 4:40 PM) HEMATOLOGY Most recent to oldest [Reference Range]: 1 2 3 WBC [3.7-10.4 K/CMM] 8.7 K/CMM 12.7 K/CMM (03/05/17 3:53 AM) *HI* (03/03/17 8:10 PM) RBC [4.20-5.40 M/CMM] 3.19 M/CMM 3.21 M/CMM *LOW* *LOW* (03/05/17 3:53 AM) (03/03/17 8:10 PM) Hgb [12.0-16.0 g/dL] 9.2 g/dL 9.2 g/dL *LOW* *LOW* (03/05/17 3:53 AM) (03/03/17 8:10 PM) Hct [36.0-48.0 %] 27.2 % 27.2 % *LOW* *LOW* (03/05/17 3:53 AM) (03/03/17 8:10 PM) MCV [80.0-98.0 fL] 85.2 fL 84.7 fL (03/05/17 3:53 AM) (03/03/17 8:10 PM) MCH [27.0-31.0 pg] 28.7 pg 28.7 pg (03/05/17 3:53 AM) (03/03/17 8:10 PM) MCHC [32.0-36.0 g/dL] 33.7 g/dL 33.9 g/dL (03/05/17 3:53 AM) (03/03/17 8:10 PM) RDW [11.5-14.5 %] 14.7 % 14.9 % *HI* *HI* (03/05/17 3:53 AM) (03/03/17 8:10 PM) Platelet [133-450 K/CMM] 281 K/CMM 316 K/CMM (03/05/17 3:53 AM) (03/03/17 8:10 PM) MPV [7.4-10.4 fL] 8.2 fL 8.7 fL (03/05/17 3:53 AM) (03/03/17 8:10 PM) Segs [45.0-75.0 %] 64.7 % 74.1 % (03/05/17 3:53 AM) (03/03/17 8:10 PM) Lymphocytes [20.0-40.0 %] 13.9 % 9.7 % *LOW* *LOW* (03/05/17 3:53 AM) (03/03/17 8:10 PM) Monocytes [2.0-12.0 %] 18.8 % 15.0 % *HI* *HI* (03/05/17 3:53 AM) (03/03/17 8:10 PM) Eosinophils [0.0-4.0 %] 1.8 % 0.4 % (03/05/17 3:53 AM) (03/03/17 8:10 PM) Basophils [0.0-1.0 %] 0.8 % 0.8 % (03/05/17 3:53 AM) (03/03/17 8:10 PM) Segs-Bands # [1.5-8.1 K/CMM] 5.6 K/CMM 9.4 K/CMM (03/05/17 3:53 AM) *HI* (03/03/17 8:10 PM) Lymphocytes # [1.0-5.5 K/CMM] 1.2 K/CMM 1.2 K/CMM (03/05/17 3:53 AM) (03/03/17 8:10 PM) Monocytes # [0.0-0.8 K/CMM] 1.6 K/CMM 1.9 K/CMM *HI* *HI* (03/05/17 3:53 AM) (03/03/17 8:10 PM) Eosinophils # [0.0-0.5 K/CMM] 0.2 K/CMM 0.1 K/CMM (03/05/17 3:53 AM) (03/03/17 8:10 PM) Basophils # [0.0-0.2 K/CMM] 0.1 K/CMM 0.1 K/CMM (03/05/17 3:53 AM) (03/03/17 8:10 PM) BACTERIAL - SEROLOGY Most recent to oldest [Reference Range]: 1 2 3 MRSA by PCR Negative (03/03/17 11:45 PM) Immunizations Not Given Vaccine Date Status Refusal Reason influenza virus vaccine, inactivated 02/26/17 Not Given Patient Refuses pneumococcal 13-valent vaccine 02/26/17 Not Given Patient Refuses Procedures Procedure Date Related Diagnosis Body Site Coronary artery bypass graft Stent placement Social History Social History Type Response Smoking Status Never smoker; Ready to change: No; Exposure to Tobacco Smoke None; Cigarette Smoking Last 365 Days No; Reg Smoking Cessation Counseling No Assessment and Plan No data available for this section
--- NOTE | 2018-07-31 15:12 | RAD REPORT ---
EXAM DESCRIPTION: RAD - Chest Single View - 07/31/2018 2:48 pm CLINICAL HISTORY: weakness Chest pain. COMPARISON: Chest Single View dated 06/10/2017; Chest Single View dated 06/08/2017; Chest Single View dated 04/18/2017; Chest Single View dated 03/03/2017 FINDINGS: Portable technique limits examination quality. The lungs are grossly clear. The heart is mildly enlarged in size with sternotomy wires noted. No dis placed fractures.Deformity of the left shoulder, chronic. IMPRESSION: No acute intrathoracic process suspected.
[2018-07-31 15:39] LABS: Urine Bacteria LOADED /HPF (<20); Urine RBC <5 /HPF (NONE SEEN)
[2018-07-31 15:40] LABS: Urine Culture Reflex Order REFLEXED
[2018-07-31] MEDS ORDERED: ONDANSETRON 4 MG (ODT) TAB ONE (16:19)
[2018-07-31 17:00] LABS: Absolute Lymphocytes (CBC) 0.7 K/uL (0.7-4.9); Absolute Monocytes 0.9 K/uL (0.1-1.3); Absolute Neutrophil 8.5 K/uL (1.8-8.0); Basophils % 0.3 % (0-1.3); Eosinophils % 0.1 % (0-4.4); Hematocrit 28.1 % (36.0-45.0); Lymphocytes % 6.8 % (15.3-44.8); RBC Red Blood Cell Count 3.63 M/uL (3.86-4.86)
[2018-07-31 17:05] LABS: Protime INR 1.24
[2018-07-31 17:21] LABS: ALT/SGPT 11 U/L (12-78); AST/SGOT 14 U/L (15-37); Albumin 2.8 g/dL (3.4-5.0); Alkaline Phosphatase 106 U/L (45-117); BUN Blood Urea Nitrogen 19 mg/dL (7-18); Bicarbonate 27 mmol/L (21-32); Bilirubin Direct 0.6 mg/dL (0-0.2); Bilirubin Total 1.3 mg/dL (0.2-1.0); CKMB Creatine Kinase MB 1.6 ng/mL (0.3-3.6); Creatine Phosphokinase 103 U/L (26-192); Glucose Level 162 mg/dL (74-106); Lipase 35 U/L (73-393); Potassium 3.2 mmol/L (3.5-5.1); Sodium Level 132 mmol/L (136-145); Troponin (Emerg Dept Use Only) < 0.02 ng/mL (0.0-0.045)
--- NOTE | 2018-07-31 18:33 | RAD REPORT ---
EXAM DESCRIPTION: CT - Abdomen Pelvis Wo Contrast - 07/31/2018 6:12 pm CLINICAL HISTORY: Abdominal pain COMPARISON: February 2017 CT imaging TECHNIQUE: Axial [address] imaging of the abdomen and pelvis was performed without IV contrast. No IV contrast was given because of allergy, abnormal renal function, patient refusal or physician re quest. No oral contrast given. All CT scans are performed using dose optimization technique as appropriate and may include automated exposure control or mA/KV adjustment according to patient size. FINDINGS: No suspicious findings in the lung bases. The liver, spleen and pancreas show no suspicious findings on non-contrast imaging. Cholecystectomy c lips are present. No biliary tree dilatation. No hydronephrosis or suspicious renal mass. Trace amount of stranding is seen along the superior mabel in of the right kidney in the perinephric. This was not seen previously. The punctate nonobstructing calyx calcification noted on the left. No significant adrenal finding. Isodense renal masses and pyel onephritis cannot be excluded in the absence of IV contrast. The urinary bladder is without significa nt finding. No dilated bowel loops or bowel wall thickening. No free air, free fluid or inflammatory stranding. N o abnormal lymphadenopathy. A small fat only umbilical hernia is present. No omental thickening. Uterus is lobulated. No hysterectomy history noted. Two lobulated soft tissue masses are present asso ciated with the uterus approximately 5.6 and 6.5 cm in size. In the left adnexa there are 2 abutting cysts or low-density masses both measuring approximately 3 cm. The left adnexal cystic masses have no t changed from 2017. The presumed uterine fibroids have enlarged. A discrete or separate right ovary is not confirmed. No suspicious bony findings. Dense arterial tree calcifications are present. IMPRESSION: No bowel obstruction, free air or surgically emergent finding. No acute GI process identifiable. Trace stranding in the perinephric fat superior margin of the right kidney. No hydronephrosis is pres ent. Isodense masses and pyelonephritis are not excluded. Lobulated uterus showing evidence for 2 masses enlarged from 2017. These are most likely fibroids. Tw o 3 centimeter cystic masses in the left adnexa are stable. Follow-up outpatient pelvic ultrasound co uld be performed for further characterization. Full assessment is limited is the absence of IV contrast.
[2018-07-31] MEDS ORDERED: ACETAMINOPHEN 500 MG TAB PO PRN (19:12)
[2018-07-31] MEDS ORDERED: ONDANSETRON 4 MG/2 ML VIAL IV PRN (19:12)
[2018-07-31] MEDS ORDERED: NA CHLORIDE 0.9% 500 ML IV ONE (19:15)
[2018-07-31] MEDS ORDERED: D50W 25 GM/50 ML SYRINGE IV PRN (19:15)
[2018-07-31] MEDS ORDERED: GLUCAGON 1 MG/VIAL IM PRN (19:15)
--- NOTE | 2018-07-31 19:27 | EDPHYS ---
Physician Documentation [facility] Name: Bridgette Fields Age: 77 yrs Sex: Female : 1940 Arrival Date: 07/31/2018 Time: 12:58 Bed 30 Private MD: ED Physician Chema Carrasco HPI: 07/31 19:26 This 77 yrs old Female presents to ER via EMS with complaints of General kdr Weakness, Vomiting, Shortness Of Breath. 19:27 Generally weak with occasional n/v and SOB for a few days. Onset: The symptoms/episode kdr began/occurred 3 day(s) ago. Severity of symptoms: At their worst the symptoms were mild in the emergency department the symptoms are unchanged. The patient has not experienced similar symptoms in the past. The patient has not recently seen a physician. Historical: - Allergies: 13:00 Sulfa (Sulfonamide Antibiotics); sv - Home Meds: 13:03 aspirin 81 mg Oral chew 1 tab once daily [Active]; Betapace 40 mg tab Oral tab 1 tab 2 hb times per day [Active]; citalopram 10 mg tab 1 tab once daily [Active]; clopidogrel 75 mg Oral tab 1 tab once daily [Active]; Diovan 320 mg Oral tab 1 tab once daily [Active]; glyburide 5 mg Oral tab 1 tab once daily [Active]; Humulin R 100 unit/mL soln [Active]; Januvia 100 mg Oral tab 1 tab once daily [Active]; Lasix 20 mg Oral tab 1 tab Every other day [Active]; Lasix 40 mg Oral tab every other day, alternate with 20mg [Active]; Lasix 40 mg Oral tab 1 tab once daily [Active]; multivitamin Oral cap [Active]; Protonix 40 mg Oral grps 1 packet once daily [Active]; simvastatin 40 mg Oral tab 1 tab once daily [Active]; - PMHx: 13:00 Myocardial infarction; TIA; Diabetes - NIDDM; sv - PSHx: 13:00 CABG; Cholecystectomy; Heart stents; bypass; ablation; sv - Immunization history:: Adult Immunizations up to date. - Social history:: Smoking status: Patient/guardian denies using tobacco. - Ebola Screening: : No symptoms or risks identified at this time. ROS: 19:27 Constitutional: Negative for chills, and weight loss - she has had subjective fever kdr Eyes: Negative for injury, pain, redness, and discharge, Neck: Negative for injury, pain, and swelling, Cardiovascular: Negative for chest pain, palpitations, and edema, Back: Negative for injury and pain, : Negative for injury, bleeding, discharge, and swelling, MS/Extremity: Negative for injury and deformity, Skin: Negative for injury, rash, and discoloration, Neuro: Negative for headache, weakness, numbness, tingling, and seizure activity. Psych: Negative for depression, anxiety, suicide ideation, homicidal ideation, and hallucinations, Allergy/Immunology: Negative for hives, rash, and allergies, Endocrine: Negative for neck swelling, polydipsia, polyuria, polyphagia, and marked weight changes. 19:27 Respiratory: Positive for cough, dyspnea on exertion, shortness of breath, on exertion. Negative for hemoptysis, orthopnea, pleurisy, sputum production. 19:27 Abdomen/GI: Positive for abdominal pain, nausea, vomiting, States that she coughed and then had diffuse abdominal pain with eccymosis. Exam: 19:27 Constitutional: This is a well developed, well nourished patient who is awake, alert, kdr and in no acute distress. Head/Face: Normocephalic, atraumatic. Eyes: Pupils equal round and reactive to light, extra-ocular motions intact. Lids and lashes normal. Conjunctiva and sclera are non-icteric and not injected. Cornea within normal limits. Periorbital areas with no swelling, redness, or edema. Neck: Trachea midline, no thyromegaly or masses palpated, and no cervical lymphadenopathy. Supple, full range of motion without nuchal rigidity, or vertebral point tenderness. No Meningismus. Chest/axilla: Normal chest wall appearance and motion. Nontender with no deformity. No lesions are appreciated. Cardiovascular: Regular rate and rhythm with a normal S1 and S2. No gallops, murmurs, or rubs. Normal PMI, no JVD. No pulse deficits. Back: No spinal tenderness. No costovertebral tenderness. Full range of motion. Skin: Warm, dry with normal turgor. Normal color with no rashes, no lesions, and no evidence of cellulitis. MS/ Extremity: Pulses equal, no cyanosis. Neurovascular intact. Full, normal range of motion. Neuro: Awake and alert, GCS 15, oriented to person, place, time, and situation. Cranial nerves II-XII grossly intact. Motor strength 5/5 in all extremities. Sensory grossly intact. Cerebellar exam normal. Normal gait. Psych: Awake, alert, with orientation to person, place and time. Behavior, mood, and affect are within normal limits. 19:27 Respiratory: mild respiratory distress is noted, Respirations: nasal flaring, pursed lip breathing, that is mild, Breath sounds: rales, that are mild, are scattered. 19:27 Abdomen/GI: Inspection: distension, obese Bowel sounds: active, diminished, Palpation: soft, mild abdominal tenderness, in the left lower quadrant. Vital Signs: 13:01 BP 122 / 64; Pulse 76; Resp 16; Temp 98.8(O); Pulse Ox 100% on R/A; Pain 2/10; hb 14:00 BP 109 / 58; Pulse 88; Resp 16; Pulse Ox 99% on R/A; hb 15:00 BP 118 / 60; Pulse 76; Resp 18; Pulse Ox 97% on R/A; hb 16:00 BP 129 / 65; Pulse 68; Resp 16; Pulse Ox 100% on R/A; hb 19:05 BP 123 / 53; Pulse 89; Resp 15; Pulse Ox 97% on R/A; hb 21:02 BP 115 / 45; Pulse 84; Resp 18; Temp 98.4; Pulse Ox 99% ; wh MDM: 19:26 Patient medically screened. kdr 19:27 Data reviewed: vital signs, nurses notes, lab test result(s), radiologic studies. kdr Counseling: I had a detailed discussion with the patient and/or guardian regarding: the historical points, exam findings, and any diagnostic results supporting the discharge/admit diagnosis, lab results, radiology results, the need for outpatient follow up. Physician consultation: Juan R Espinoza MD was called at 19:00, was contacted at 19:05, regarding admission, patient's condition, and will see patient in inpatient room. ED course: Fluid held since the patient is afebrile, VSS even though sepsis markers were positive. Additionally, the patient refused additional IV sticks and we were unable to administer fluids. Again, since the patient was overall stable, a central line was not required to support her BP . ED course: Dr. Espinoza aware of patient condition, no IV access currently and inability to administer medications other than IM or PO until Mid-line placed. 07/31 14:10 Order name: Basic Metabolic Panel; Complete Time: 17:41 kdr 07/31 14:10 Order name: Blood Culture Adult (2) kdr 07/31 14:10 Order name: CBC with Diff; Complete Time: 17:41 kdr 07/31 14:10 Order name: Ckmb; Complete Time: 17:41 kdr 07/31 14:10 Order name: CPK; Complete Time: 17:41 kdr 07/31 14:10 Order name: Lactate; Complete Time: 17:41 kdr 07/31 14:10 Order name: LFT's; Complete Time: 17:41 kdr 07/31 14:10 Order name: Lipase; Complete Time: 17:41 kdr 07/31 14:10 Order name: Procalcitonin; Complete Time: 18:50 kdr 07/31 14:10 Order name: Protime (+inr); Complete Time: 17:41 kdr 07/31 14:10 Order name: Ptt, Activated; Complete Time: 17:41 kdr 07/31 14:10 Order name: Troponin (emerg Dept Use Only); Complete Time: 17:41 kdr 07/31 14:10 Order name: Urine Microscopic Only; Complete Time: 17:41 kdr 07/31 15:07 Order name: Urine Dipstick--Ancillary (enter results) eb 07/31 15:40 Order name: Urine Culture EDIL 07/31 19:16 Order name: Basic Metabolic Panel EDIL 07/31 19:16 Order name: Basic Metabolic Panel EDIL 07/31 19:16 Order name: CBC with Automated Diff EDMS 07/31 19:16 Order name: CBC with Automated Diff EDMS 07/31 19:26 Order name: Type and Screen EDMS 07/31 19:26 Order name: Amylase Level EDMS 07/31 19:26 Order name: CKMB Creatine Kinase MB EDMS 07/31 19:26 Order name: Comprehensive Metabolic Panel EDMS 07/31 19:26 Order name: C-Reactive Protein EDMS 07/31 19:26 Order name: Lactate EDMS 07/31 19:26 Order name: Lipase EDMS 07/31 19:26 Order name: Procalcitonin EDIL 07/31 19:26 Order name: Lactate EDMS 07/31 19:26 Order name: Lactate EDMS 07/31 19:26 Order name: Lactate EDMS 07/31 14:10 Order name: Chest Single View XRAY; Complete Time: 17:41 kdr 07/31 14:10 Order name: Accucheck; Complete Time: 16:37 kdr 07/31 14:10 Order name: Cardiac monitoring; Complete Time: 16:37 kdr 07/31 14:10 Order name: EKG - Nurse/Tech; Complete Time: 16:37 kdr 07/31 14:10 Order name: IV Saline Lock - Large Bore; Complete Time: 21:26 kdr 07/31 14:10 Order name: Labs collected and sent; Complete Time: 16:37 kdr 07/31 14:10 Order name: O2 Per Protocol; Complete Time: 16:38 kdr 07/31 14:10 Order name: O2 Sat Monitoring; Complete Time: 16:38 kdr 07/31 18:00 Order name: Abdomen ; Complete Time: 18:50 EDMS 07/31 19:16 Order name: Consistent Carb (ADA) [address] EDMS 07/31 19:26 Order name: Lactate EDMS 07/31 19:26 Order name: Magnesium EDMS 07/31 19:26 Order name: Magnesium EDMS 07/31 19:26 Order name: Magnesium EDMS 07/31 19:26 Order name: Magnesium EDMS 07/31 19:26 Order name: Phosphorus EDMS 07/31 19:26 Order name: Phosphorus EDMS 07/31 19:26 Order name: Phosphorus EDMS 07/31 19:26 Order name: Phosphorus EDMS 07/31 19:26 Order name: Lactate EDMS 07/31 19:26 Order name: Lactate EDMS / 19:26 Order name: Blood Culture EDMS 07/31 19:27 Order name: CONS Pharmacy Consult EDMS 07/31 19:27 Order name: Social Service Consult EDMS 07/31 19:27 Order name: ABG Arterial Blood Gas EDMS 07/31 19:27 Order name: D-Dimer EDMS 07/31 19:27 Order name: Platelet Count EDMS 07/31 19:27 Order name: Troponin I EDMS 07/31 14:10 Order name: Urine Dipstick-Ancillary (obtain specimen); Complete Time: 16:38 kdr Administered Medications: 16:10 Drug: Zofran 4 mg Route: PO; dm5 16:45 Follow up: Response: No adverse reaction 20:01 Drug: LevaQUIN 750 mg Route: PO; 21:25 Follow up: Response: No adverse reaction 20:02 Drug: Rocephin (cefTRIAXone) 1 grams Route: IM; Site: right gluteus; 21:24 Follow up: Response: No adverse reaction Disposition: 07/31/18 19:26 Hospitalization ordered by Juan R Espinoza for Inpatient Admission. Preliminary diagnosis are Urinary tract infection, site not specified, Pyelonephritis. - Bed requested for Telemetry/MedSurg (Inpatient). - Status is Inpatient Admission. - Condition is Fair. - Problem is new. - Symptoms have improved. UTI on Admission? Yes Signatures: Dispatcher [employer] EDMS Beatriz Patel RN Sophie Silva RN RN dm5 aMegan Ware RN RN sv Rittger, Kevin, MD MD [facility] Ebony Watson RN RN Anna Jama Corrections: (The following items were deleted from the chart) 18:00 14:12 Abdomen Pelvis W Con+[id number].BRZ ordered. EDIL EDIL 19:36 19:26 Hospitalization Ordered by Juan R Espinoza MD for Inpatient Admission. Preliminary diagnosis is Urinary tract infection, site not specified; Pyelonephritis. Bed requested for Telemetry/MedSurg (Inpatient). Status is Inpatient Admission. Condition is Fair. Problem is new. Symptoms have improved. UTI on Admission? Yes. kdr 22:12 19:36 07/31/2018 19:26 Hospitalization Ordered by Juan R Espinoza MD for Inpatient Admission. Preliminary diagnosis is Urinary tract infection, site not specified; Pyelonephritis. Bed requested for Telemetry/MedSurg (Inpatient). Status is Inpatient Admission. Condition is Fair. Problem is new. Symptoms have improved. UTI on Admission? Yes. kl
--- NOTE | 2018-07-31 19:27 | ER ---
Nurse's Notes [facility] Name: Bridgette Fields Age: 77 yrs Sex: Female : 1940 Arrival Date: 07/31/2018 Time: 12:58 Bed 30 Private MD: Diagnosis: Urinary tract infection, site not specified;Pyelonephritis Presentation: 07/31 12:53 Presenting complaint: EMS states: generalized weakness, vomiting, and SOB for a couple sv of days. BP 130/57 HR-84 RR-18 Temp 100.4 BS-210. EMS reports an abd bruise as well. Transition of care: patient was not received from another setting of care. Onset of symptoms is unknown. Care prior to arrival: Glucose check: 210. 12:53 Method Of Arrival: EMS: [facility] sv 12:53 Acuity: SANDRO 3 sv 13:00 Risk Assessment: Do you want to hurt yourself or someone else? Patient reports no hb desire to harm self or others. Initial Sepsis Screen: Does the patient meet any 2 criteria? No. Patient's initial sepsis screen is negative. Does the patient have a suspected source of infection? No. Patient's initial sepsis screen is negative. Triage Assessment: 13:00 General: Appears in no apparent distress. Behavior is calm, cooperative. Pain: Pain hb currently is 2 out of 10 on a pain scale. EENT: No signs and/or symptoms were reported regarding the EENT system. Neuro: Level of Consciousness is awake, alert, obeys commands, Oriented to person, place, time, situation. Cardiovascular: Heart tones S1 S2 present Capillary refill < 3 seconds Patient's skin is warm and dry. Respiratory: Airway is patent Respiratory effort is even, unlabored, Respiratory pattern is regular, symmetrical, Breath sounds are clear bilaterally. GI: Reports nausea. : No signs and/or symptoms were reported regarding the genitourinary system. Derm: Skin is pink, warm \T\ dry. Musculoskeletal: No signs and/or symptoms reported regarding the musculoskeletal system. Historical: - Allergies: 13:00 Sulfa (Sulfonamide Antibiotics); sv - Home Meds: 13:03 aspirin 81 mg Oral chew 1 tab once daily [Active]; Betapace 40 mg tab Oral tab 1 tab 2 hb times per day [Active]; citalopram 10 mg tab 1 tab once daily [Active]; clopidogrel 75 mg Oral tab 1 tab once daily [Active]; Diovan 320 mg Oral tab 1 tab once daily [Active]; glyburide 5 mg Oral tab 1 tab once daily [Active]; Humulin R 100 unit/mL soln [Active]; Januvia 100 mg Oral tab 1 tab once daily [Active]; Lasix 20 mg Oral tab 1 tab Every other day [Active]; Lasix 40 mg Oral tab every other day, alternate with 20mg [Active]; Lasix 40 mg Oral tab 1 tab once daily [Active]; multivitamin Oral cap [Active]; Protonix 40 mg Oral grps 1 packet once daily [Active]; simvastatin 40 mg Oral tab 1 tab once daily [Active]; - PMHx: 13:00 Myocardial infarction; TIA; Diabetes - NIDDM; sv - PSHx: 13:00 CABG; Cholecystectomy; Heart stents; bypass; ablation; sv - Immunization history:: Adult Immunizations up to date. - Social history:: Smoking status: Patient/guardian denies using tobacco. - Ebola Screening: : No symptoms or risks identified at this time. Screenin:01 Abuse screen: Denies threats or abuse. Denies injuries from another. Nutritional hb screening: No deficits noted. Tuberculosis screening: No symptoms or risk factors identified. Fall Risk Total Wu Fall Scale indicates Low Risk Score (25-44 pts). Fall prevention measures have been instituted. Side Rails Up X 2 Frequent Obs/Assesments occuring Family Present and informed to notify staff if they need to leave bedside As available Patient and Family Educated on Fall Prevention Program and strategies. Assessment: 13:15 General: see triage assessment. hb 14:00 Reassessment: Patient appears in no apparent distress at this time. Patient and/or hb family updated on plan of care and expected duration. Pain level reassessed. Patient is alert, oriented x 3, equal unlabored respirations, skin warm/dry/pink. 14:45 Reassessment: Unable to establish PIV access, Dr. Carrasco notified. hb 15:10 Reassessment: Mario MCPHERSON at bedside for PIV placement. Pt remains AOx4, respirations hb even and unlabored, VSS. Son at bedside. 15:32 Reassessment: Dr. Carrasco and Mario RN at bedside for US PIV placement. hb 16:28 Reassessment: Unable to establish PIV access, Dr. Carrasco aware, inside lab called to collect labs. 16:36 Reassessment: Cierra from inside lab at bedside. 16:46 Reassessment: Patient appears in no apparent distress at this time. Patient and/or family updated on plan of care and expected duration. Pain level reassessed. Patient is alert, oriented x 3, equal unlabored respirations, skin warm/dry/pink. 17:30 Reassessment: Patient appears in no apparent distress at this time. No changes from previously documented assessment. Patient and/or family updated on plan of care and expected duration. Pain level reassessed. Patient is alert, oriented x 3, equal unlabored respirations, skin warm/dry/pink. 18:30 Reassessment: Patient appears in no apparent distress at this time. No changes from previously documented assessment. Patient and/or family updated on plan of care and expected duration. Pain level reassessed. Patient is alert, oriented x 3, equal unlabored respirations, skin warm/dry/pink. 19:30 Reassessment: Patient appears in no apparent distress at this time. No changes from previously documented assessment. Patient and/or family updated on plan of care and expected duration. Pain level reassessed. Patient is alert, oriented x 3, equal unlabored respirations, skin warm/dry/pink. 21:06 Reassessment: Patient appears in no apparent distress at this time. No changes from previously documented assessment. Patient and/or family updated on plan of care and expected duration. Pain level reassessed. Patient is alert, oriented x 3, equal unlabored respirations, skin warm/dry/pink. Vital Signs: 13:01 BP 122 / 64; Pulse 76; Resp 16; Temp 98.8(O); Pulse Ox 100% on R/A; Pain 2/10; hb 14:00 BP 109 / 58; Pulse 88; Resp 16; Pulse Ox 99% on R/A; hb 15:00 BP 118 / 60; Pulse 76; Resp 18; Pulse Ox 97% on R/A; hb 16:00 BP 129 / 65; Pulse 68; Resp 16; Pulse Ox 100% on R/A; hb 19:05 BP 123 / 53; Pulse 89; Resp 15; Pulse Ox 97% on R/A; hb 21:02 BP 115 / 45; Pulse 84; Resp 18; Temp 98.4; Pulse Ox 99% ; wh ED Course: 12:58 Patient arrived in ED. sv 12:59 Triage completed. sv 13:01 Ebony Watson, RN is Primary Nurse. hb 13:01 Arm band placed on. hb 13:03 Patient has correct armband on for positive identification. Placed in gown. Bed in low hb position. Call light in reach. Side rails up X2. smooth stucco resurfacer on. Pulse ox on. NIBP on. 13:45 Chema Carrasco MD is Attending Physician. kdr 14:31 Missed attempt(s): 24 gauge in right wrist. Bleeding controlled, band aid applied, hb catheter tip intact. 14:38 Radiology exam delayed due to lab results not completed at this time. (BUN/Creatinine). vr 14:42 Missed attempt(s): 24 gauge in right forearm. Bleeding controlled, band aid applied, hb catheter tip intact. 14:48 X-ray completed. Portable x-ray completed in exam room. Patient tolerated procedure mh1 well. 14:49 Chest Single View XRAY In Process Unspecified. EDMS 14:50 Radiology exam delayed due to lab results not completed at this time. (BUN/Creatinine). vr 15:03 Urine collected: straight cath specimen, jairo colored. tm3 15:26 Radiology exam delayed due to lab results not completed at this time. (BUN/Creatinine). vr 15:40 Missed attempt(s): 20 gauge in right antecubital area. Bleeding controlled, band aid sg applied, catheter tip intact. Missed attempt(s): 20 gauge in left antecubital area. Bleeding controlled, band aid applied, catheter tip intact. 16:05 Radiology exam delayed due to lab results not completed at this time. (BUN/Creatinine). nj 16:30 Radiology exam delayed due to lab results not completed at this time. (BUN/Creatinine). vm2 17:03 Radiology exam delayed due to lab results not completed at this time. (BUN/Creatinine). vr 17:18 ABNORMAL LAB RESULTS: 2.5 LACTATE, provider notified. tw2 17:56 Radiology exam delayed due to IV insertion attempt and/or patient not having vm2 appropriate IV at this time. 18:[address] via stretcher. vm2 18:11 Abdomen In Process Unspecified. EDMS 19:10 Juan R Espinoza MD is Hospitalizing Provider. kdr 21:23 Inserted saline lock: 22 gauge in left forearm, using aseptic technique. ,using aseptic technique. [facility] Blood collected. 22:10 No provider procedures requiring assistance completed. Patient admitted, IV remains in place. Administered Medications: 16:10 Drug: Zofran 4 mg Route: PO; dm5 16:45 Follow up: Response: No adverse reaction hb 20:01 Drug: LevaQUIN 750 mg Route: PO; 21:25 Follow up: Response: No adverse reaction 20:02 Drug: Rocephin (cefTRIAXone) 1 grams Route: IM; Site: right gluteus; 21:24 Follow up: Response: No adverse reaction Outcome: 19:26 Decision to Hospitalize by Provider. kdr 22:11 Admitted to Tele accompanied by tech, family with patient, via wheelchair, room 413, with chart, Report called to Martha ann at around 21:30 22:12 Condition: stable 22:12 Discharge instructions given to patient, family, Instructed on the need for admit, Demonstrated understanding of 22:12 Patient left the ED. Signatures: Dispatcher [employer] EDMS Alan Francis tm3 Sophie Toledo RN RN dmMaegan Gaines, RN Mario Barker, RN Chema Harmon MD MD [facility] Eevline Frank Komal Gee Heather, Khushi Merchant RN, RN RN 2 Adriel Marquez [facility] Anna Jama
[2018-07-31] MEDS ORDERED: levoFLOXacin 750 MG TAB ONE (19:47)
[2018-07-31] MEDS ORDERED: CEFTRIAXONE 1000 MG/VIAL ONE (19:47)
[2018-07-31] MEDS ORDERED: WATER FOR INJ,STERILE 10 ML ONE (19:49)
[2018-07-31 20:00] LABS: Arterial Blood Carboxyhemoglob 2.3 % (0-1.5); Blood Gas Oxyhemoglobin 83.8 % (94-97); Blood O2 Saturation 86.8 % (92-98.5)
[2018-07-31] MEDS ORDERED: Levofloxacin500mg IV 500 MG/100 ML BAG IV SCH (20:00)
[2018-07-31 20:10] LABS: Urine Blood 1+ (NEG); Urine Glucose NEGATIVE (NEG); Urine Protein 2+ (NEG)
[2018-07-31] MEDS ORDERED: CEFTRIAXONE 1 GM/NS 50 ML 1 GM/50 ML BAG IV SCH (21:00)
[2018-07-31 22:09] LABS: ALT/SGPT 11 U/L (12-78); AST/SGOT 14 U/L (15-37); Albumin 2.6 g/dL (3.4-5.0); Alkaline Phosphatase 102 U/L (45-117); Amylase Level 32 U/L (25-115); BUN Blood Urea Nitrogen 19 mg/dL (7-18); Bicarbonate 28 mmol/L (21-32); Bilirubin Total 1.3 mg/dL (0.2-1.0); CKMB Creatine Kinase MB 2.5 ng/mL (0.3-3.6); Glucose Level 168 mg/dL (74-106); Lipase 40 U/L (73-393); Potassium 3.6 mmol/L (3.5-5.1); Protein, Total 6.7 g/dL (6.4-8.2); Sodium Level 131 mmol/L (136-145); Troponin I < 0.02 ng/mL (0.0-0.045)
[2018-07-31 22:59] VITALS: BMI 35.2
[2018-07-31 23:35] LABS: MPV 8.5 fL (7.6-11.3); Platelet Estimate ND
[2018-07-31] MEDS: INSULIN -REGULAR HUMAN 50 UNIT/0.5 ML ML SQ SCH (23:57)
[2018-08-01 06:05] LABS: Magnesium 1.8 mg/dL (1.8-2.4); Phosphorus 4.1 mg/dL (2.5-4.9); Potassium 3.4 mmol/L (3.5-5.1)
[2018-08-01 06:31] LABS: Absolute Lymphocytes (CBC) 0.5 K/uL (0.7-4.9); Absolute Monocytes 0.8 K/uL (0.1-1.3); Absolute Neutrophil 6.2 K/uL (1.8-8.0); Basophils % 0.7 % (0-1.3); Eosinophils % 0.1 % (0-4.4); Hematocrit 24.5 % (36.0-45.0); Lymphocytes % 6.7 % (15.3-44.8); MPV 8.2 fL (7.6-11.3); Monocytes % 10.8 % (3.3-12.3); RBC Red Blood Cell Count 3.26 M/uL (3.86-4.86)
[2018-08-01] MEDS: INSULIN -REGULAR HUMAN 50 UNIT/0.5 ML ML SQ SCH ×4 (07:30→20:59)
[2018-08-01] MEDS ORDERED: MAGNESIUM SULFATE 1 gm IVPB 1 GM/100 ML BAG IV ONE (08:00)
[2018-08-01] MEDS ORDERED: POTASSIUM CL SA 10 MEQ TAB PO ONE (08:00)
[2018-08-01] MEDS: CEFTRIAXONE/SWI 1gm 1 GM/10 ML SYR IV SCH ×2 (08:07→20:59)
[2018-08-01] MEDS: AMLODIPINE 5 MG TAB PO SCH (08:08)
[2018-08-01] MEDS: FUROSEMIDE 40 MG TABLET PO SCH (08:08)
[2018-08-01] MEDS: PANTOPRAZOLE 40MG TABLET PO SCH (08:08)
[2018-08-01] MEDS: CITALOPRAM 10 MG TABLET PO SCH (08:09)
--- NOTE | 2018-08-01 08:12 | RAD REPORT ---
EXAM DESCRIPTION: NM - Vent Perfusion VQ Scan - 08/01/2018 7:44 am CLINICAL HISTORY: Shortness of breath COMPARISON: Chest film July 31 TECHNIQUE: The patient was administered 17.3 mCi Xenon 133 gas with posterior projection inspiration , equilibrium, and washout views obtained. The patient was then administered 7.2 mCi Tc-99m MAA label ed RBCs followed by standard 8 view protocol. FINDINGS: There is good distribution of the Xenon with no ventilation defects identified. Mild to mo derate diffuse air trapping seen throughout both lung marvin. Two small perfusion defects are seen in the posterior mid upper left lung field. Patient has chronic interstitial lung disease without a focal lung parenchymal process on the prior day chest film. IMPRESSION: Low probability V/Q scan for pulmonary embolism, bordering on intermediate probability. Mild to moderate diffuse air trapping in both lung marvin.
[2018-08-01] MEDS ORDERED: ENOXAPARIN 30 MG/0.3 ML SQ SCH (09:00)
[2018-08-01 16:08] LABS: Folic Acid, (Folate) 13.8 ng/mL (3.1-17.5)
[2018-08-01] MEDS: Levofloxacin 250mg IV 250 MG/50 ML BAG IV SCH (20:58)
[2018-08-01] MEDS: AMLODIPINE 2.5 MG TAB PO SCH (21:00)
[2018-08-01] MEDS: ATORVASTATIN 40 MG TAB PO SCH (21:01)
--- NOTE | 2018-08-02 01:36 | HP ---
Date of Admission: 07/31/2018 History Of Present Illness: A 77-year-old female who did not feel well for 2 days and then she start ed having some abdominal discomfort generalized along with nausea and vomiting. She came to the [facility] room, was found to have possible pyelonephritis of the right kidney, and she was admitted for t [facility]. Review of Systems: Cardiovascular: No complaints. Respiratory: No complaints. Gastrointestinal: As above. Genitourinary: The patient also smelled her urine to be bad, but no other complaints. Neurological: No complaints. Skeletomuscular: No complaints. Past Medical History: 1.Type 2 diabetes. 2.Hypertension. 3.Hyperlipidemia. 4.Gastroesophageal reflux disease. 5.Coronary artery disease. 6.The patient also has had cholecystectomy. Social History: No smoking, alcohol, or drug abuse history. Family History: Noncontributing. Medications: Home medications include aspirin 81 mg p.o. daily, Plavix 75 mg p.o. daily, Tarceva 50 mg daily, amlodipine 5 mg p.o. daily, atorvastatin 40 mg p.o. daily, Celexa 10 mg p.o. daily, Lasix 4 0 mg p.o. daily. Allergies: SULFA MEDICATIONS. Physical Examination: Vital Signs: Blood pressure 120/60, pulse 100, the patient is afebrile. Heart: Regular rate and rhythm. Chest: Clear to auscultation. Abdomen: Soft, nontender. No rigidity. No rebound. Bowel sounds are normoactive. Extremities: No edema. No cyanosis. Peripheral pulses are felt. Neurological: Alert, oriented, nonfocal. Grossly intact. Imaging: Abdomen and pelvic CT showed some stranding in the right kidney, possible pyelonephritis. Chest x-ray, no acute pathology. Laboratory Data: White cell count 10.1, blood count 7.6, hemoglobin 9.1, hematocrit 28.1, platelets 152. The patient's hemoglobin this morning 8.2. Sodium 132, potassium 3.4, blood sugar fingersticks noted. BUN 21, creatinine 1.3. Microbiology is pending. Urinalysis showed more than 50 white cell counts with blood, positive nitrite and esterase. Assessment/plan: Possible pyelonephritis with nausea and vomiting. This patient is being admitted. We will put her on IV Rocephin and levofloxacin, IV fluids. Put her on sliding scale for regular in sulin. Continue her home medicines for chronic medical illnesses. Monitor electrolytes and suppleme nt as needed. The patient's D-dimer drawn in the emergency room was high, so a V/Q lung scan was don e and was low probability. Look orders for details. KAILEY/MODL Voice ID: [id number]
[2018-08-02 06:40] LABS: Absolute Lymphocytes (CBC) 0.6 K/uL (0.7-4.9); Absolute Monocytes 0.8 K/uL (0.1-1.3); Absolute Neutrophil 3.1 K/uL (1.8-8.0); Basophils % 0.6 % (0-1.3); Eosinophils % 0.1 % (0-4.4); Hematocrit 24.4 % (36.0-45.0); Lymphocytes % 13.2 % (15.3-44.8); MPV 8.1 fL (7.6-11.3); Monocytes % 17.8 % (3.3-12.3); RBC Red Blood Cell Count 3.22 M/uL (3.86-4.86)
[2018-08-02 06:47] LABS: Magnesium 2.1 mg/dL (1.8-2.4); Phosphorus 3.2 mg/dL (2.5-4.9); Potassium 3.8 mmol/L (3.5-5.1)
[2018-08-02] MEDS: FUROSEMIDE 40 MG TABLET PO SCH (08:35)
[2018-08-02] MEDS: PANTOPRAZOLE 40MG TABLET PO SCH (08:35)
[2018-08-02] MEDS: CEFTRIAXONE/SWI 1gm 1 GM/10 ML SYR IV SCH ×2 (08:36→21:08)
[2018-08-02] MEDS: CITALOPRAM 10 MG TABLET PO SCH (08:36)
[2018-08-02] MEDS: AMLODIPINE 5 MG TAB PO SCH (08:36)
[2018-08-02] MEDS: ENOXAPARIN 30 MG/0.3 ML SQ SCH (08:37)
[2018-08-02] MEDS: INSULIN -REGULAR HUMAN 50 UNIT/0.5 ML ML SQ SCH ×4 (08:37→20:57)
[2018-08-02] MEDS ORDERED: POTASSIUM CL SA 10 MEQ TAB PO ONE (09:00)
[2018-08-02 09:25] LABS: Anisocytosis 2+; Blood Morphology Comment NOTED (NOT SEEN); Platelet Estimate ADEQ; Platelets, Giant FEW; Poikilocytosis 1+; Polychromasia 1+
--- NOTE | 2018-08-02 16:47 | PN ---
Subjective: The patient is feeling well. No abdominal pain. Objective: Vital Signs: Blood pressure 120/60, pulse 70, temperature 98.6. Heart: Regular rate and rhythm. Chest: Clear to auscultation. Abdomen: Soft, nontender. Bowel sounds are active. Extremities: No edema. No cyanosis. Peripheral pulses are felt. Neurologic: Alert, oriented, nonfocal. Grossly intact. Laboratory Data: Hemoglobin 8, hematocrit 24.4, platelets 280, white cell count 4.5. BUN 19, creati nine 1.28. Blood sugar, fingersticks noted. Assessment And Plan: 1.Pyelonephritis, responding to current antibiotics. 2.Iron deficiency anemia, evidenced by her iron profile results with low saturation and low iron. W e are going to repeat the CBC. Clinically, no evidence of active bleeding at this time; however, the patient may need GI workup. If her hemoglobin remains stable, this could be done as an outpatient. Otherwise, we will ask GI consult while inpatient that depends on her blood count. 3.Type 2 diabetes. We will continue her on sliding scale and checking the blood sugar fingersticks. Rest of medical problems, stable. Look orders for details. MFS/MODL Voice ID: [id number] Report ID: [id number]
[2018-08-02] MEDS: AMLODIPINE 2.5 MG TAB PO SCH (20:56)
[2018-08-02] MEDS: ATORVASTATIN 40 MG TAB PO SCH (20:56)
[2018-08-02] MEDS: Levofloxacin 250mg IV 250 MG/50 ML BAG IV SCH (21:00)
[2018-08-02] MEDS: levoFLOXacin 250 MG TAB PO SCH (23:23)
[2018-08-03 04:14] LABS: Potassium 3.9 mmol/L (3.5-5.1)
[2018-08-03 05:38] LABS: Absolute Lymphocytes (CBC) 0.8 K/uL (0.7-4.9); Absolute Neutrophil 2.8 K/uL (1.8-8.0); Basophils % 0.7 % (0-1.3); Eosinophils % 0.8 % (0-4.4); Hematocrit 24.5 % (36.0-45.0); Lymphocytes % 16.9 % (15.3-44.8); MPV 8.1 fL (7.6-11.3); Monocytes % 21.7 % (3.3-12.3); RBC Red Blood Cell Count 3.25 M/uL (3.86-4.86)
[2018-08-03 06:39] LABS: Blood Morphology Comment NOT SEEN (NOT SEEN); Platelet Estimate ADEQ; Platelets, Giant F
[2018-08-03] MEDS: ENOXAPARIN 30 MG/0.3 ML SQ SCH (08:23)
[2018-08-03] MEDS: INSULIN -REGULAR HUMAN 50 UNIT/0.5 ML ML SQ SCH ×2 (08:23→11:41)
[2018-08-03] MEDS: PANTOPRAZOLE 40MG TABLET PO SCH (08:24)
[2018-08-03] MEDS: CITALOPRAM 10 MG TABLET PO SCH (08:24)
[2018-08-03] MEDS: levoFLOXacin 250 MG TAB PO SCH (08:24)
[2018-08-03] MEDS: AMLODIPINE 5 MG TAB PO SCH (08:24)
[2018-08-03] MEDS: FUROSEMIDE 40 MG TABLET PO SCH (08:26)
[2018-08-03 08:27] VITALS: BP 139/58
[2018-08-03 08:57] VITALS: TEMP 96.7
[2018-08-03] MEDS ORDERED: POTASSIUM 25 MEQ EFFERV TAB PO ONE (09:00)
[2018-08-03 10:48] VITALS: O2SAT 99
== END 2018-08-03 12:20 | disposition home or self-care (01) ==
LOC: ER 12:57 → INTOOBSV 19:00 → ERHOLD 19:00 → 4TH 21:28
PROVIDERS: ADMIT Internal Medicine; ATTEND Internal Medicine
DX: N12 Tubulo-interstitial nephritis, not specified as acute or chronic (principal); D50.9 Iron deficiency anemia, unspecified; E11.9 Type 2 diabetes mellitus without complications; I10 Essential (primary) hypertension; E78.5 Hyperlipidemia, unspecified; K21.9 Gastro-esophageal reflux disease without esophagitis; I25.10 Atherosclerotic heart disease of native coronary artery without angina pectoris; Z88.2 Allergy status to sulfonamides
CPT/HCPCS: 87040 ×4; 87088; 85025 ×4; 87086; 80048 ×4; 36415 ×2; 82150; 86900; 83735 ×3; 86850; 82550; 82274; 84100 ×3; 85049; 84132; 85610; 86870; 86901; 82962 ×11; 85379; 80076; 83605 ×6; 85730; 87077; 87186; 84484 ×2; 82553 ×2; 82746; 82607; 83690 ×2; 83540; 80053; 84145 ×2; 84466; 86140; 74176; 71045; 82805; 94760 ×3; 78582; 96372; 99285; J1650 ×3; J3475; J0696 ×4; A9558; A9540; G0378 ×2; 81003; 81015

== ENCOUNTER 2019-04-13 06:26 | Day surgery (SDC) | payer OTHER ==
[2019-04-09 10:09] LABS: Absolute Lymphocytes (CBC) 1.5 K/uL (0.7-4.9); Basophils % 0.6 % (0-1.3); Hematocrit 33.8 % (36.0-45.0); Lymphocytes % 15.3 % (15.3-44.8); MPV 8.6 fL (7.6-11.3); RBC Red Blood Cell Count 4.26 M/uL (3.86-4.86)
--- NOTE | 2019-04-09 10:13 | RAD REPORT ---
EXAM DESCRIPTION: RAD - Chest Pa And Lat (2 Views) - 04/09/2019 10:01 am CLINICAL HISTORY: preop Chest pain. COMPARISON: Chest Single View dated 07/31/2018; Chest Single View dated 06/10/2017; Chest Single View d ated 06/08/2017; Chest Single View dated 04/18/2017 FINDINGS: The lungs are clear. The heart is moderately enlarged in size. Sternotomy wires present. P roximal left humerus deformity is present.
[2019-04-09 10:15] LABS: Protime INR 1.34
[2019-04-09 10:24] LABS: Potassium 4.1 mmol/L (3.5-5.1)
[2019-04-13] MEDS ORDERED: NA CHLORIDE 0.9% 500 ML ONE (06:54)
[2019-04-13] MEDS ORDERED: FLUMAZENIL 0.1 MG/ML (5 mL VIAL) IV ONE (07:27)
[2019-04-13] MEDS ORDERED: ATROPINE SULF 1 MG/10 ML SYR IV ONE (07:28)
[2019-04-13] MEDS ORDERED: MIDAZOLAM HCL 5 MG/5 ML INJ ONE ×3 (07:28→07:40)
--- NOTE | 2019-04-13 09:42 | EKG ---
Test Date: 2019-04-13 Test Time: 07:57:37 Care Aide: STEVIE MEASUREMENT RESULTS: Intervals: Rate: 68 VT: 220 QRSD: 92 QT: 448 QTc: 476 [place]: P: 81 VT: 220 QRS: 20 T: 71 INTERPRETIVE STATEMENTS: Sinus rhythm with 1st degree AV block Cannot rule out Inferior infarct, age undetermined Abnormal ECG Compared to ECG 06/10/2017 07:42:04 First degree AV block now present Myocardial infarct finding now present Sinus bradycardia no longer present Prolonged QT interval no longer present Electronically Signed On 04-13-19 09:41:39 SHERIFF SERGEANT by Leif Sanchez
[2019-04-13 10:11] VITALS: BP 99/48; TEMP 97.6; O2SAT 96
--- NOTE | 2019-04-14 05:36 | OP ---
Date of Procedure: 04/13/2019 Surgeon: Leif Sanchez MD Coil Cutter: Laura Donaldson. Procedure Performed: Direct current cardioversion. Indication: Atrial fibrillation. History Of Present Illness: Ms. Fields is a 78-year-old woman, has had a history of paroxysmal atrial f ibrillation. She is status post ablation approximately 10 months ago, but she is back in atrial fibr illation on beta-blockers and Eliquis. I decided to try a cardioversion on her today. She was admit devyn as an outpatient, brought to the laborer yard, given a total of 12 mg of Versed for sedation. She re ceived 1 shock of 100 joules and converted to sinus rhythm. There were no complications or blood los s. Total conscious sedation was 25 minutes. Final Diagnosis: Atrial fibrillation, status post successful cardioversion to sinus rhythm. Plan: To DC her beta-nara, put her on Multaq 400 b.i.d. She will go home when she wakes up today . PARISH/TREVOR Voice ID: [id number] Report ID: [id number]
== END 2019-04-13 09:32 | disposition home health service (06) ==
LOC: CCL 06:26
DX: I48.91 Unspecified atrial fibrillation (principal); I25.10 Atherosclerotic heart disease of native coronary artery without angina pectoris; I70.209 Unspecified atherosclerosis of native arteries of extremities, unspecified extremity; I10 Essential (primary) hypertension; E78.5 Hyperlipidemia, unspecified; E11.9 Type 2 diabetes mellitus without complications; Z95.1 Presence of aortocoronary bypass graft; Z87.891 Personal history of nicotine dependence; Z88.2 Allergy status to sulfonamides; Z79.4 Long term (current) use of insulin; Z82.49 Family history of ischemic heart disease and other diseases of the circulatory system
CPT/HCPCS: 93005; 85025; 80048; 36415; 85610; 82947; 85730; 71046; 92960; J2250 ×3; J7040

== ENCOUNTER 2019-11-11 18:30 | Inpatient (IN) | payer OTHER ==
--- OUTSIDE RECORDS SUMMARY | 2019-11-11 18:34 | XMS REPORT | Continuity of Care Document ---
:1940 Author Organization [facility] [employer] Care Team Providers Name Role Phone [facility] [employer] Unavailable Un available Problems Problem Status Onset Classification Date Comments Sourc e Date Reported Paroxysmal atrial 07/30/19 10/23/2017 [facility] fibrillation 18 Medical Center CCL GENERAL Active 06/24/19 [place] ANESTESHIAEP 18 Medic al STUDY W. PO Center PAROXYSMAL ATRIAL Active 06/24/19 [facility] FIB Medical Center I48.0 Active 06/24/19 [place] [address] Medical [facility] ELEVATED TROPIN Active 03/03/20 [facility] [place] ELEVATED WBC 17 Medical Center Coronary Active Problem 10/23/2017 [facility] arteriosclerosis Med ical (disorder) Center Diabetes mellitus Active Problem 10/23/2017 [facility] (disorder) Medical Center Hyperlipidemia Resolved Problem 10/23/2017 [facility] [place] (disorder) Medical Center Hypertensive Resolved Problem 10/23/2017 [place] disorder, systemic M edical arterial (disorder) Center Hypocalcemia Active Problem 10/23/2017 [place] (disorder) Medical Center Hypokalemia [place] [facility] [place] Hypomagnesemia Active Problem 10/23/2017 [facility] ex (disorder) Medical Center Tachycardia, 10/21/2017 [place] unspecified Medical Center Sick sinus syndrome 10/23/2017 [facility] 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 Med ical [place] coronary Cent er artery without angina pectoris Atherosclerosis of 10/21/2017 [facility] aorta Medical Center Other nonspecific 10/21/2017 [facility] abnormal finding of Medical lung field Center Personal history of 10/23/2017 [facility] transient ischemic M edical attack (TIA), and Ce nter cerebral infarction without residual deficits Essential (primary) 10/23/2017 [facility] hypertension Medical Center Hyperlipidemia, 10/23/2017 [facility] unspecified Medical Center 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 Center Type 2 diabetes 10/23/2017 [facility] mellitus without Med ical complications Center Personal history of 10/23/2017 [facility] nicotine dependence Medical Center shelter (current) 10/23/2017 [facility] use of Medical anticoagulants Cente r quick service technician (current) 10/23/2017 [facility] use of Medical antithrombotics/ant Center iplatelets quick service technician (current) 10/23/2017 [facility] use of insulin Medic al Center Other custodial 10/23/2017 [facility] (current) drug Medic al therapy Center PAROXYSMAL ATRIAL Active [facility] FIBRILLATION [facility] Medications Medication Details Route Status Patient Ordering Order Source Instructions Provider Date Zocor Notes: (Same Inactive [facility] as: Zocor) [address] [place] [address] apixaban 2.5 MG 2.5 mg, PO, Active [facility] [place] Oral Tablet Q12H, # 60 tab, 2018 Medi bonnie [Eliquis] 3 Refill(s) Center clopidogrel 75 75 mg = 1 tab, Active Dru MG Oral Tablet PO, Daily, # 90 2018 M edical [Plavix] tab, 1 Center Refill(s) pantoprazole Notes: Tablet Inactive [facility] [place] should not be 2018 Medical chewed or Center crushed. (Same as: Protonix) Sucralfate Notes: May Inactive [facility] interfere 2018 Medical w/enteral feeds Center - Take 1 hr before or 2 hr after antacids, dairy pdt, meals & minerals - On empty stomach. For patients unable to swallow tablet, dissolve in 10mL - 30mL of water or juice and stir before giving. (Same As: Carafate) Furosemide 20 MG Notes: (Same Inactive [facility] Oral Tablet as: Lasix) September 2017 Medi bonnie [Lasix] cause GI upset. Center Give with food or milk. Plavix Notes: (Same Inactive [facility] As: Plavix) [address] [place] [address] Citalopram 10 mg, 1 tab, Inactive [place] as Route: PO, Drug 2018 Medical form: TAB, Center Daily, Dosing Weight 78.182, kg, Start date: 07/17/17 9:00:00 RESOURCE ECONOMIST, Duration: 30 day, Stop date: 08/15/17 9:00:00 CDT Aspirin 81 MG Notes: Do not Inactive [facility] Enteric Coated crush or chew. 2018 Me dical Tablet (Same As: Center Ecotrin) valsartan Notes: Same as Inactive [place] Diovan 2018 Medical Center Januvia Notes: (Same Inactive [place] as: Januvia) 2018 Medical Center Eliquis Notes: Same as: [place] Eliquis 2018 [facility] Amiodarone Notes: (Same [place] as: Cordarone) 2018 [facility] AMIODarone 200 200 mg, PO, [place] mg oral tablet BID, # 60 tab, 2018 Me dical 3 Refill(s) Center sucralfate 1 g 1 gm, PO, BID, Active [place] oral tablet # 28 tab, 0 2018 Medical Refill(s) Center Regular Insulin, 60 units) Inactive [place] Human 100 UNT/ML WASTE: F/P - 2018 Me dical Injectable Black; E - [facility] Solution Municipal Trash Bin Stable for 28 days at room temperature Expires in days from D ate neostigmine Route: IV, Drug Inactive [facility] (ANES) form: INJ, 2017 Medical ONCE, Stop Center date: 07/16/17 14:31:00 RESOURCE ECONOMIST ondansetron Route: IV, Drug Inactive [facility] (ANES) form: INJ, 2017 Medical ONCE, Stop Center date: 07/16/17 14:31:00 RESOURCE ECONOMIST glycopyrrolate Route: IV, Drug Inactive [facility] (ANES) form: INJ, 2017 Medical ONCE, Stop Center date: 07/16/17 14:31:00 RESOURCE ECONOMIST protamine (ANES) Route: IV, Drug Inactive [facility] form: INJ, 2017 Medical ONCE, Stop Center date: 07/16/17 14:31:00 RESOURCE ECONOMIST Fentanyl Notes: (Same No Longer [place] as: Sublimaze) Active 2018 Medical Preservative Center free. Naloxone Notes: Same as No Longer [place] Narcan Active 2018 [facility] Flumazenil Notes: (Same No Longer [place] as: Romazicon) Active 2018 [facility] Ondansetron Notes: (Same [place] Long[place] as: Zofran) Active 2018 Medical MEDICATION Center WASTE Product Size: 4 mg Product Wasted: ___ mg Hydralazine Notes: (Same [place] Longer [place] as: Apresoline) Active 2018 Medical Push over 5 Center minutes Metoprolol Notes: (Same No Longer [place] as: Lopressor) Active 2018 Medical Push over 2 Center minutes Acetaminophen Notes: Max [place] Longer [place] acetaminophen Active 2018 Medical 4000 mg/day (4 Center gm/day). (Same as: Tylenol Extra Strength) EPINEPHrine Route: IV, Drug Inactive Dru (ANES) form: INJ, 2017 Medical ONCE, Stop Center date: 07/16/17 13:36:00 RESOURCE ECONOMIST niCARdipine Route: IV, Drug Inactive Dru (ANES) + sodium form: INJ, 2017 Medic al chloride (ANES) ONCE, Stop Cente r 4 mL date: 07/16/17 13:31:00 RESOURCE ECONOMIST fentaNYL (ANES) Route: IV, Drug Inactive Dru form: INJ, 2017 Medical ONCE, Stop Center date: 07/16/17 12:11:00 RESOURCE ECONOMIST propofol (ANES) Route: IV, Drug Inactive [place] form: INJ, 2017 Medical ONCE, Stop Center date: 07/16/17 12:11:00 RESOURCE ECONOMIST midazolam (ANES) Route: IV, Drug Inactive Dru form: SOLN, 2017 Medical ONCE, Stop Center date: 07/16/17 12:11:00 RESOURCE ECONOMIST cisatracurium Route: IV, Drug Inactive H Dru (ANES) form: INJ, 2017 Medical ONCE, Stop Center date: 07/16/17 12:11:00 RESOURCE ECONOMIST Sodium Chloride Route: IV, Inactive [place] 0.9% IV (ANES) Total Volume: 2017 Med ical 1000 mL 1,000, Start Center date: 07/16/17 11:20:00 RESOURCE ECONOMIST, Stop date: 07/16/17 12:20:00 RESOURCE ECONOMIST Fentanyl 50 microgram, Inactive Dru Route: IV, 2017 Medical ONCE, Dosing Center Weight 78.182, kg, Start date: 07/16/17 9:57:00 RESOURCE ECONOMIST, Stop date: 07/16/17 9:57:00 RESOURCE ECONOMIST Versed 2 mg, Route: Inactive Dru IVP, ONCE, 2018 Medical Dosing Weight Center 78.182, kg, Start date: 07/16/17 9:57:00 RESOURCE ECONOMIST, Stop date: 07/16/17 9:57:00 RESOURCE ECONOMIST Simvastatin 40 40 mg = 1 tab, Active [place] MG Oral Tablet PO, Bedtime, 0 2018 Ut dical [Zocor] Refill(s) Center clopidogrel 75 75 mg = 1 tab, No Longer [facility] MG Oral Tablet PO, Daily, 0 Active 2018 [facility] bonnie [Plavix] Refill(s) Center apixaban 2.5 MG 2.5 mg, PO, No Longer [facility] Oral Tablet Q12H, 0 Active 2018 Medical [Eliquis] Refill(s) Center multivitamin 1, PO, Daily, 0 Active [facility] Refill(s) 2018 Medical Center normal saline 1,000 mL, Rate: No Longer Dru 0.9% IV 1,000 mL 100 ml/hr, Active 2018 [facility] Infuse over: 10 Center hr, Route: IV, Dosing Weight 78.182 kg, Total Volume: 1,000, Start date: 07/16/17 7:01:00 RESOURCE ECONOMIST, Duration: 30 day, Stop date: 08/15/17 7:00:00 CDT, 1.89, m2 Regular Insulin, 5 unit, SUB-Q, Active [place] Human 100 UNT/ML TID-Before 2016 [facility] Injectable Meals, PRN Center Solution Blood Glucose Results, # 1 vial, 2 Refill(s) Blood Glucose 1 ea, MISC, Active [place] Monitor Daily, Use as 2017 Medical directed., # 1 Center ea, 0 Refill(s) Lancets 1 box, MISC, Active Dru Daily, # 1 box, 2017 Medical 0 Refill(s) Center Insulin 1 ea, MISC, Active Dru Needle/Syringe TID, # 100 ea, 2017 Me dical Combo Misc/Other 11 Refill(s) Ce nter atorvastatin Notes: Same as No Longer [place] Lipitor Active [address] [place] [address] NS (Bolus) IV 500 mL, 100 Inactive [place] ml/hr, Route: 2017 Medical IV, ONCE, Center Dosing Weight 70.938 kg, Start date: 03/04/17 10:39:00 CDT, Stop date: 03/04/17 10:39:00 CDT Saline Flush Notes: (Same No Longer [place] 0.9% as: BD Active [address] [place] [address] Posiflush) [facility] pantoprazole Notes: For IV Inactive [place] push [facility] ml 0.9% sodium chloride and push over 2 minutes. (Same as: Protonix) valsartan Notes: Same [place] Longer [place] Diovan Active [address] [place] [address] Ticagrelor Notes: (Same No Longer [place] as: Brilinta) Active [address] [place] [address] Sotalol Notes: (Same No Longer [place] Hydrochloride 80 As: Betapace) Active 2016 edical MG Oral Tablet 40 mg = 1/[address] 80 mg TAB Streptococcus Notes: Shake Inactive [place] pneumoniae well prior to 2017 Medical serotype 1 use (Same as: [facility] capsular antigen Prevnar 13) diphtheria [id number] protein conjugate vaccine / Streptococcus pneumoniae serotype 14 capsular antigen diphtheria [id number] protein conjugate vaccine / Streptococcus pneumoniae serotype 18C capsular antigen d Citalopram 10 mg, Route: No Longer [place] PO, Drug form: Active 2017 Medical TAB, Daily, Center Dosing Weight 70.938, kg, Start date: 03/04/17 9:00:00 CDT, Duration: 30 day, Stop date: 04/02/17 9:00:00 RESOURCE ECONOMIST influenza virus Notes: (Same Inactive [place] vaccine, as: Fluzone [address] [place] [address] inactivated Quadrivalent, [facility] Fluarix Quadrivalent) For 3 years of age and older (0.5 mL IM) Shake well before use aspirin 81 mg Notes: Do not No Longer [place] tablet, enteric crush or chew. Active 2016 edical coated (Same As: [facility] Ecotrin) Amlodipine Notes: (Same No Longer [place] as: Norvasc) Active 2017 Medical Center Insulin regular 60 units) No Longer [place] WASTE: F/P - Active 2016 Medical Black; E - Center Municipal Trash Bin Stable for 28 days at room temperature Expires in days from D ate pantoprazole Notes: Tablet No Longer [place] should not be Active 2016 Medical chewed or Center crushed. (Same as: Protonix) Sodium Chloride 1,000 mL, 1,000 Inactive [place] 0.9% (Bolus) IV ml/hr, Infuse 2016 Ut dical Over: 1 hr, Center Route: IV, 1,000, Drug form: INJ, ONCE, Priority: STAT, Dosing Weight 70.938 kg, Start date: 03/04/17 1:34:00 CDT, Duration: 1 doses or times, Stop date: 03/04/17 1:34:00 CDT Calcium Chloride 1,000 mL, 1,000 Inactive [place] 0.0014 MEQ/ML / ml/hr, Infuse 2016 Ut dical Potassium Over: 1 hr, Center Chloride 0.004 Route: IVPB, MEQ/ML / Sodium 1,000, Drug Chloride 0.103 form: INJ, MEQ/ML / Sodium ONCE, Priority: Lactate 0.028 STAT, Dosing MEQ/ML Weight 70.938 Injectable kg, Start date: Solution 03/04/17 1:23:00 CDT, Duration: 1 doses or times, Stop date: 03/04/17 1:23:00 CDT Insulin regular 60 units) No Longer [place] WASTE: F/P - Active 2016 Medical Black; E - [facility] Municipal Trash Bin Stable for 28 days at room temperature Expires in days from D ate Dextrose 50% 12.5 gm, 25 mL, No Longer H [place] Syringe Route: IVP, Active 2016 Medical Drug Form: INJ, Center Dosing Weight 70.938, kg, PRN, PRN Blood Glucose Results, Start date: 03/04/17 1:20:00 CDT, Duration: 30 day, Stop date: 04/03/17 0:19:00 RESOURCE ECONOMIST Glucagon 1 mg, Route: No Longer [place] IM, Drug form: Active 2017 Medical PDR/INJ, PRN, Center Dosing Weight 70.938, kg, PRN Blood Glucose Results, Start date: 03/04/17 1:20:00 CDT, Duration: 30 day, Stop date: 04/03/17 0:19:00 RESOURCE ECONOMIST benzonatate Notes: (Same [place] Longer [place] As: Tessalon Active 2016 Medical Perles) "Do Not Center Crush" Saline Flush Notes: (Same No Longer [place] 0.9% as: BD Active 2016 Medical Posiflush) Center Acetaminophen Notes: Do not No Longer [place] exceed 4 Active 2016 Medical gm/day. (Same Center as: Tylenol) Nystatin 100 Notes: (Same No Longer [place] UNT/MG Topical as:Mycostatin, Active 2016 Ut dical Powder Nilstat) For Center external use only. Calcium Notes: (Same No Longer [place] Carbonate 500 MG As: Tums) Active 2016 Medic al Chewable Tablet Calcium [facility] Carbonate 500 mg = 200 mg elemental calcium Dose = mg calcium carbonate ( mg elemental calcium) Calcium Notes: WASTE: No Longer [place] Gluconate F/P - Sink; E - Active 2016 Medica l Municipal Trash [facility] Bin Magnesium Notes: WASTE: No Longer [place] as Sulfate F/P - Sink; E - Active 2016 Medical Municipal Trash [facility] Bin Magnesium Oxide Notes: (Same No Longer H [place] as: Mag-Ox 400) Active 2016 [facility] Magnesium oxide [facility] [id number] elemental magnesium Dose=____mg magnesium oxide (___mg elemental magnesium) potassium Notes: ([facility]: K Active 2016 Medical Phosphate.) 1 Center mMol phoshate has 1.47 mEq potassium Infuse over 4 hours potassium Notes: (Same No Longer [place] phosphate-sodium as: Phos-NaK) Active 2016 edical phosphate 250 Each 1.5 gm pkt Ce nter mg-280 mg-160 mg has 250mg oral powder for phosphorous. reconstitution Mix w/2.5oz water and stir. sodium phosphate 45 mmol, 15 mL, No Longer 03/04 [place] Route: IVPB, Active 2017 Medical PRN, Dosing Center Weight 70.938, kg, PRN Abnormal Lab Result, Start date: 03/03/17 21:50:00 CDT, Duration: 30 day, Stop date: 04/02/17 20:49:00 RESOURCE ECONOMIST, FOR ICU USE ONLY Potassium Notes: (Same No Longer [facility] s Chloride as: Potassium Active 2016 [facility] Chloride) Center Allergies, Adverse Reactions, Alerts Substance Category Reaction Severity Reaction Status Date Comments S ource type Reported sulfa drugs Assertion Drug Active [facility] Immunizations Immunization Date Given Site Status Last Updated Comments Cris rce pneumococcal 02/26/2017 Not Given [facility]2017 Not Given [facility] vaccine, [facility] Center Results Order Name Results Value Reference Date Interpretation Comments Cris rce Range HEMATOLOGY POC Activated 142 07/16 [facility] /2017 [facility] HEMATOLOGY POC Activated 349 07/16 [facility] s Clotting Time /2017 [facility] HEMATOLOGY POC Activated 403 07/16 [facility] Clotting Time /2017 [facility] BLOOD BANK AB Int Anti-D 07/16 [facility] BLOOD BANK ABO/Rh AB NEG 07/16 [facility] BLOOD BANK Antibody Scrn Positive 1 07/16 Result [place] RESULTS (07/16/17 7:05 AM) /2017 Comment: Medic al 07/16/2017 [facility] 08:43 ATTALUKD
"Significant Findings of POS ABSC_ called to ROCKY OLIVO_ at [facility]ATH [facility]_ by AT_. Read Back OK" CHEM PANEL Total Protein 7.0 6.4 - 8.4 07/16 [place] [facility] CHEM PANEL AST 24 0 - 37 07/16 [facility] CHEM PANEL Alk Phos 73 39 - 136 07/16 [facility] CHEM PANEL Bili Total 0.5 0.2 - 1.3 07/16 [facility] CHEM PANEL Albumin Lvl 3.5 3.5 - 5.0 07/16 [place] [facility] CHEM PANEL ALT 19 0 - 65 07/16 [facility] CHEM PANEL eGFR 45 07/16 Result Comment: The Medical eGFR is Center calculated using the CKD-EPI formula. In most young, healthy individuals the eGFR will be >90 mL/min/1.73m2 . The eGFR declines with age. An eGFR of 60-89 may be normal in some populations, particularly the elderly, for whom the CKD-EPI formula has not been extensively validated. Use of the eGFR is not recommended in the following populations:< br/>
Brandee viduals with unstable creatinine concentration s, including patients and those with serious co-morbid conditions.<b r/>
Patie nts with extremes in muscle mass or diet.

The data above are obtained from the National Kidney Disease Education Program (NKDEP) which additionally recommends that when the eGFR is used in patients with extremes of body mass index for purposes of drug dosing, the eGFR should be multiplied by the estimated BMI. CHEM PANEL Calcium Lvl 9.4 8.5 - 10.5 07/16 [facility] CHEM PANEL CO2 30 24 - 32 07/[address] CHEM PANEL Sodium Lvl 139 135 - 145 07/[address] CHEM PANEL Potassium Lvl 3.9 3.5 - 5.1 07/16 [facility] CHEM PANEL Chloride Lvl 100 95 - 109 07/16 [facility] CHEM PANEL Glucose Lvl 327 70 - 99 07/[address] CHEM PANEL Creatinine 1.19 0.50 - 07/16 [facility] Lvl 1.40 [facility] CHEM PANEL BUN 16 7 - 22 07/16 [facility]2017 [facility] CHEM PANEL Globulin 3.5 2.7 - 4.2 07/[address] CHEM PANEL A/G Ratio 1.0 0.7 - 1.6 07/[address] CHEM PANEL B/C Ratio 13 6 - 25 07/[address] CHEM PANEL AGAP 12.9 10.0 - 07/16 [facility] 20.0 [facility] CHEM PANEL Magnesium Lvl 1.5 1.8 - 2.4 07/16 [facility]2017 [facility] HEMATOLOGY PTT 30.7 22.9 - 07/16 [place] 35.8 [facility] HEMATOLOGY PT 15.4 12.0 - 07/16 [place] 14.7 /2017 [facility] HEMATOLOGY INR 1.21 0.85 - 07/16 [place] 1.17 [facility] HEMATOLOGY MPV 8.4 7.4 - 10.4 07/16 [facility] HEMATOLOGY Platelet 225 133 - 450 07/16 [facility] HEMATOLOGY MCH 27.7 27.0 - 07/16 [place] 31.0 [facility] HEMATOLOGY MCV 82.7 80.0 - 07/16 [place] 98.0 [facility] HEMATOLOGY RDW 15.7 11.5 - 07/16 [place] 14.5 [facility] HEMATOLOGY MCHC 33.5 32.0 - 07/16 [place] 36.0 [facility] HEMATOLOGY RBC 3.82 4.20 - 07/16 [place] 5.40 [facility] HEMATOLOGY WBC 7.2 3.7 - 10.4 07/16 [facility] HEMATOLOGY Hct 31.6 36.0 - 07/16 48.0 [facility] HEMATOLOGY Hgb 10.6 12.0 - 07/16 [place] 16.0 [facility] HEMATOLOGY Segs-Bands # 4.9 1.5 - 8.1 07/16 [facility] HEMATOLOGY Lymphocytes # 1.3 1.0 - 5.5 07/16 [facility] HEMATOLOGY Basophils # 0.1 0.0 - 0.2 07/16 [facility] HEMATOLOGY Eosinophils # 0.2 0.0 - 0.5 07/16 [facility] HEMATOLOGY Monocytes # 0.8 0.0 - 0.8 07/16 [facility] HEMATOLOGY Eosinophils 2.2 0.0 - 4.0 07/16 [facility] HEMATOLOGY Basophils 0.8 0.0 - 1.0 07/16 [facility] HEMATOLOGY Lymphocytes 17.6 20.0 - 07/16 [place] 40.0 [facility] HEMATOLOGY Monocytes 11.7 2.0 - 12.0 07/16 [facility] HEMATOLOGY Segs 67.7 45.0 - 07/16 [place] 75.0 [facility] CHEM PANEL eGFR 55 07/15 Result Comment: The Medical eGFR is Center calculated using the CKD-EPI formula. In most young, healthy individuals the eGFR will be >90 mL/min/1.73m2 . The eGFR declines with age. An eGFR of 60-89 may be normal in some populations, particularly the elderly, for whom the CKD-EPI formula has not been extensively validated. Use of the eGFR is not recommended in the following populations:< br/>
Brandee viduals with unstable creatinine concentration s, including patients and those with serious co-morbid conditions.<b r/>
Patie nts with extremes in muscle mass or diet.

The data above are obtained from the National Kidney Disease Education Program (NKDEP) which additionally recommends that when the eGFR is used in patients with extremes of body mass index for purposes of drug dosing, the eGFR should be multiplied by the estimated BMI. CHEM PANEL POC 1.0 0.5 - 1.4 07/15 [facility] CHEM PANEL Phosphorus 2.0 2.5 - 4.5 03/05 [facility] CHEM PANEL Magnesium Lvl 2.0 1.8 - 2.4 03/05 [facility] CHEM PANEL eGFR 69 03/05 [facility] Comment: The Medical eGFR is Center calculated using the CKD-EPI formula. In most young, healthy individuals the eGFR will be >90 mL/min/1.73m2 . The eGFR declines with age. An eGFR of 60-89 may be normal in some populations, particularly the elderly, for whom the CKD-EPI formula has not been extensively validated. Use of the eGFR is not recommended in the following populations:< br/>
Brandee viduals with unstable creatinine concentration s, including patients and those with serious co-morbid conditions.<b r/>
Patie nts with extremes in muscle mass or diet.

The data above are obtained from the National Kidney Disease Education Program (NKDEP) which additionally recommends that when the eGFR is used in patients with extremes of body mass index for purposes of drug dosing, the eGFR should be multiplied by the estimated BMI. CHEM PANEL Potassium Lvl 4.1 3.5 - 5.1 03/05 [facility] CHEM PANEL Creatinine 0.83 0.50 - 03/05 [facility] [place] Lvl 1.40 /2016 [facility] CHEM PANEL Chloride Lvl 100 95 - 109 03/05 s [facility] CHEM PANEL Sodium Lvl 135 135 - 145 03/05 [facility] CHEM PANEL CO2 25 24 - 32 03/05 [facility] CHEM PANEL AGAP 14.1 10.0 - 03/05 20.0 [facility] CHEM PANEL Calcium Lvl 8.7 8.5 - 10.5 03/05 [facility] CHEM PANEL BUN 18 7 - 22 03/05 [facility] CHEM PANEL Glucose Lvl 129 70 - 99 03/05 [facility] HEMATOLOGY MCHC 33.7 32.0 - 03/05 [place] 36.0 [facility] HEMATOLOGY RDW 14.7 11.5 - 03/05 14.5 [facility] HEMATOLOGY MCH 28.7 27.0 - 03/05 [place] 31.0 [facility] HEMATOLOGY MPV 8.2 7.4 - 10.4 03/05 [facility] HEMATOLOGY Platelet 281 133 - 450 03/05 [facility] HEMATOLOGY MCV 85.2 80.0 - 03/05 98.0 [facility] HEMATOLOGY Hct 27.2 36.0 - 03/05 [place] 48.0 [facility] HEMATOLOGY Hgb 9.2 12.0 - 03/05 [place] 16.0 [facility] HEMATOLOGY RBC 3.19 4.20 - 03/05 [place] 5.40 [facility] HEMATOLOGY WBC 8.7 3.7 - 10.4 03/05 [facility] HEMATOLOGY Segs 64.7 45.0 - 03/05 [place] 75.0 [facility] HEMATOLOGY Segs-Bands # 5.6 1.5 - 8.1 03/05 [facility] HEMATOLOGY Lymphocytes # 1.2 1.0 - 5.5 03/05 [facility] HEMATOLOGY Monocytes # 1.6 0.0 - 0.8 03/05 [facility] HEMATOLOGY Basophils 0.8 0.0 - 1.0 03/05 [facility] HEMATOLOGY Eosinophils # 0.2 0.0 - 0.5 03/05 [facility] HEMATOLOGY Basophils # 0.1 0.0 - 0.2 03/05 [place] [facility] HEMATOLOGY Eosinophils 1.8 0.0 - 4.0 03/05 [facility] HEMATOLOGY Lymphocytes 13.9 20.0 - 03/05 [place] 40.0 [facility] HEMATOLOGY Monocytes 18.8 2.0 - 12.0 03/[address] [place] [address] PARATHYROID Ca Norm WB 1.12 1.05 - 03/05 [place] PROFILE 1.25 [facility] PARATHYROID Ca Ion WB 1.11 1.05 - 03/05 [place] PROFILE 1.25 [facility] URINE AND UA <=1.0 0.1 - 1.0 03/04 [facility] STOOL Urobilinogen mg/dL /2016 [facility] URINE AND UA Bacteria Occasional None Seen 03/04 [place] STOOL /HPF /HPF /2016 [facility] [facility] URINE AND UA RBC 1 0 - 2 03/04 [facility] URINE AND UA WBC 2 0 - 5 03/04 [facility] URINE AND UA Mucus Few /LPF None Seen 03/04 [facility] STOOL /LPF [facility] URINE AND UA Sq Epi Occasional Few /LPF 03/04 [facility] STOOL /LPF [facility] URINE AND UA Color Yellow Yellow 03/04 [facility] STOOL *NA* /2016 [facility] (03/04/17 4:40 PM) Cente r URINE AND UA Turbidity Clear Clear 03/04 [facility] (03/04/17 4:40 PM) [facility] URINE AND UA Protein Negative Negative 03/04 [facility] STOOL mg/dL mg/dL [facility] URINE AND UA Glucose Negative Negative 03/04 [facility] STOOL mg/dL mg/dL /2016 [facility] URINE AND UA pH 5.0 5.0 - 8.0 03/04 [facility] STOOL [facility] URINE AND UA Ketones Negative Negative 03/04 [facility] STOOL mg/dL mg/dL [facility] URINE AND UA Nitrite Negative Negative 03/04 [facility] STOOL (03/04/17 4:40 PM) [facility] URINE AND UA Blood Negative Negative 03/04 [facility] (03/04/17 4:40 PM) /2016 [facility] URINE AND UA Leuk Est Trace Negative 03/04 [facility] STOOL *ABN* /2016 [facility] (03/04/17 4:40 PM) Cente r URINE AND UA Spec Grav 1.013 <=1.030 03/04 [facility] STOOL [facility] URINE AND UA Bili Negative Negative 03/04 [facility] STOOL *NA* /2016 Medical (03/04/17 4:40 PM) [place] CHEM PANEL eGFR 51 03/04 Result Comment: The Medical eGFR is Center calculated using the CKD-EPI formula. In most young, healthy individuals the eGFR will be >90 mL/min/1.73m2 . The eGFR declines with age. An eGFR of 60-89 may be normal in some populations, particularly the elderly, for whom the CKD-EPI formula has not been extensively validated. Use of the eGFR is not recommended in the following populations:< br/>
Brandee viduals with unstable creatinine concentration s, including patients and those with serious co-morbid conditions.<b r/>
Patie nts with extremes in muscle mass or diet.

The data above are obtained from the National Kidney Disease Education Program (NKDEP) which additionally recommends that when the eGFR is used in patients with extremes of body mass index for purposes of drug dosing, the eGFR should be multiplied by the estimated BMI. CHEM PANEL AGAP 12.8 10.0 - 03/04 20.0 [facility] CHEM PANEL Chloride Lvl 96 95 - 109 03/04 [facility] CHEM PANEL CO2 27 24 - 32 03/04 2016 [facility] CHEM PANEL Potassium Lvl 3.8 3.5 - 5.1 03/04 [facility] CHEM PANEL Calcium Lvl 8.2 8.5 - 10.5 03/04 [facility] CHEM PANEL Sodium Lvl 132 135 - 145 03/04 [facility] CHEM PANEL Creatinine 1.07 0.50 - 03/04 [facility] Lvl 1.40 [facility] CHEM PANEL Glucose Lvl 206 70 - 99 03/04 [facility] CHEM PANEL BUN 25 7 - 22 03/04 [facility] CHEM PANEL Phosphorus 2.2 2.5 - 4.5 03/04 [facility] CHEM PANEL Magnesium Lvl 2.3 1.8 - 2.4 03/04 [facility] PARATHYROID Ca Norm WB 1.04 1.05 - 03/04 [facility] PROFILE 1. [facility] PARATHYROID Ca Ion WB 1.02 1.05 - 03/04 PROFILE 1. [facility] CHEM PANEL Phosphorus 2.7 2.5 - 4.5 03/04 [facility] CHEM PANEL Magnesium Lvl 1.6 1.8 - 2.4 03/04 [facility] CHEM PANEL BUN 27 7 - 22 03/04 [facility] CHEM PANEL Creatinine 1.20 0.50 - 03/04 [place] Lvl 1.40 [facility] CHEM PANEL Sodium Lvl 135 135 - 145 03/04 [facility] CHEM PANEL eGFR 44 03/04 Result Comment: [facility] eGFR is Center calculated using the CKD-EPI formula. In most young, healthy individuals the eGFR will be >90 mL/min/1.73m2 . The eGFR declines with age. An eGFR of 60-89 may be normal in some populations, particularly the elderly, for whom the CKD-EPI formula has not been extensively validated. Use of the eGFR is not recommended in the following populations:< br/>
Brandee viduals with unstable creatinine concentration s, including patients and those with serious co-morbid conditions.<b r/>
Patie nts with extremes in muscle mass or diet.

The data above are obtained from the National Kidney Disease Education Program (NKDEP) which additionally recommends that when the eGFR is used in patients with extremes of body mass index for purposes of drug dosing, the eGFR should be multiplied by the estimated BMI. CHEM PANEL Glucose Lvl 109 70 - 99 03/04 [facility] CHEM PANEL Potassium Lvl 2.7 3.5 - 5.1 03/04 Result Comment: [facility] Result(s) called to Kalyan Garza at 03/04/2017 05:24 by ET. Read back OK. CHEM PANEL Chloride Lvl 94 95 - 109 03/04 [place] [facility] CHEM PANEL CO2 27 24 - 32 03/04 [facility] CHEM PANEL AGAP 16.7 10.0 - 03/04 20.0 [facility] CHEM PANEL Calcium Lvl 8.3 8.5 - 10.5 03/04 [facility] PARATHYROID Ca Ion WB 1.00 1.05 - 03/04 [place] PROFILE 1. [facility] PARATHYROID Ca Norm WB 0.98 1.05 - 03/04 [place] PROFILE 1. [facility] BACTERIAL - MRSA by PCR Negative 03/04 [facility] SEROLOGY (03/03/17 11:45 PM) /2016 [facility] CHEM PANEL Lactic Acid 1.6 0.5 - 2.2 03/04 [place] L[place] /2016 [facility] CHEM PANEL Procalcitonin 0.44 0.00 - 03/04 [facility] s Lvl 0. [facility] HEMATOLOGY MPV 8.7 7.4 - 10.4 03/04 [facility] HEMATOLOGY MCH 28.7 27.0 - 03/04 [place] 31.0 [facility] HEMATOLOGY MCHC 33.9 32.0 - 03/04 [place] 36.0 [facility] HEMATOLOGY Platelet 316 133 - 450 03/04 [facility] HEMATOLOGY RDW 14.9 11.5 - 03/04 [place] 14.5 [facility] HEMATOLOGY RBC 3.21 4.20 - 03/04 [place] 5.40 [facility] HEMATOLOGY MCV 84.7 80.0 - 03/04 [place] 98.0 [facility] HEMATOLOGY Hct 27.2 36.0 - 03/04 [place] 48.0 [facility] HEMATOLOGY Hgb 9.2 12.0 - 03/04 [place] 16.0 2017 [facility] HEMATOLOGY WBC 12.7 3.7 - 10.4 03/04 [facility] HEMATOLOGY Segs 74.1 45.0 - 03/04 [place] 75.0 2017 [facility] HEMATOLOGY Lymphocytes # 1.2 1.0 - 5.5 03/04 [place] [facility] HEMATOLOGY Monocytes # 1.9 0.0 - 0.8 03/04 [facility] HEMATOLOGY Basophils 0.8 0.0 - 1.0 03/04 [facility] HEMATOLOGY Segs-Bands # 9.4 1.5 - 8.1 03/04 [facility] HEMATOLOGY Eosinophils 0.4 0.0 - 4.0 03/04 [facility] HEMATOLOGY Lymphocytes 9.7 20.0 - 03/04 [place] 40.0 2017 [facility] HEMATOLOGY Monocytes 15.0 2.0 - 12.0 03/04 [facility] HEMATOLOGY Eosinophils # 0.1 0.0 - 0.5 03/04 [place] [facility] HEMATOLOGY Basophils # 0.1 0.0 - 0.2 03/04 [place] [facility] Pathology Reports No Data Provided for This Section Diagnostic Reports Report Value Date Source Pulmonary Vein Mapping Chest CTA pulmonary vein mapping, at 10:01 AM 07/15/2017 [facility] CT HISTORY: 76-year-old female with paroxysmal atrial fibrillation. Evaluate the pulmonary veins. Center TECHNIQUE: Continuous 1 mm t hin axial CT images were obtained through the chest according to pulmonary vein mapping protocol elevated the intravenous administration of 90 mL Omnipaque 350 contrast with delayed imaging through the heart. Coronal, sagittal and axial MIP reformatted images provided. No prior chest CT is available for comparison. FINDINGS: 4 pulmonary veins are identi fied, 2 on the right and 2 on [...] left inferior pulmonary vein. Cardiothoracic ratio is 14.2 /23.3 cm. Lipomatous hypertrophy of the interatrial septum. The ascending aorta does not measure enlarged. The pulmonary trunk is slightly prominent at 31 mm, the right pulmo nary artery 25 mm and the le ft pulmonary artery 24 mm. Calcified atherosclerotic plaque scattered in the thoracic aorta. Abundant calcifications of the left main, left anterior descending, left circumfl ex and right coronary arteries. Mitral annular c alcification. Bilateral breast calcifications, which can be co rrelated with mammography. Abdominal aortic and arteria l calcifications. The adrenal glands are unremarkable. Cholecystectomy clips noted. No pericardial effusion. Trace right pleural eff usion. The paratracheal lymph node is 14 mm. There are borderline sized right hilar lymph nodes. Additional subcentimeter mediastinal and hilar lymph nodes noted. There is mild interlobular s eptal thickening with a lower lobe predilection, consistent with very mild interstitial pulmonary edema in the lungs. There are numerous tiny 2 to 3 mm pulmonary nodules scat tered throughout the lungs bilaterally with an u pper lobe predilection. The bones are demineralized. The thoracic spine is kyphotic with degenerative changes including osteophytes. There are degenerative changes of the bilateral shoulders. There is deformity of the surgical neck of the proximal left h umerus which may be due to old healed trauma. Note is made of old healed bilateral rib fractures anteriorly. Median sternotomy changes. IMPRESSION: 1. 4 pulmonary veins are jodi ntified, 2 on the right and 2 on the left. Measurements are as above. 2. No left atrial thrombus. 3. Cardiomegaly. Lipomatous hypertrophy of the interatrial septum. The central pulmonary arteries are slightly prominent. 4. Aortic atherosclerosis. Coronary artery calci fications. 5. Slightly enlarged mediast inal and right hilar lymph nodes are likely reactive. 6. Mild interstitial pulmonary edema. 7. Numerous tiny 2 to 3 mm p ulmonary nodules scattered in the lungs bilaterally. * According to the Fleis[employer] er Society 2017 Guidelines for management of pulmonary nodules, a low risk patient with multiple nodules measuring less than 6 mm does not require routine follow-up. For a hi gh risk patient, multiple no dules measuring less than 6 mm can be followed with a repeat chest CT at 12 months. Chest 1view DX EXAM: XR CHEST 1 VIEW 03/03/2017 [facility] edical DATE: 03/03/2017 at 2244 hours Ce nter INDICATION: Evaluate for pneumonia COMPARISON: None. TECHNIQUE: AP chest FINDINGS: Lines, tubes and hardware: P ostoperative changes from prior CABG are noted including median sternotomy wires and mediastinal clips.. Lungs and pleura: No focal a irspace opacity is seen. The costophrenic sulci are sharp. No pneumothorax is seen. Heart and mediastinum: The h eart size is enlarged. The thoracic aorta is tortuous. Vascular calcifications are present in the aorta. Bones: No acute bony abnormality is identified. IMPRESSION: 1. Postoperative changes from CABG are again no devyn. 2. The lungs are clear. Consultation Notes No Data Provided for This Section Discharge Summaries No Data Provided for This Section History and Physicals No Data Provided for This Section Vital Signs Vital Sign Value Date Comments Source Systolic (mm Hg) 120 07/17/2017 [facility] dical Center Diastolic (mm Hg) 64 07/17/2017 [facility] Temperature Oral (F) 97.9 F 07/17/2017 [facility] Respitory Rate 16 07/17/2017 [facility] Center Systolic (mm Hg) 147 07/17/2017 [facility] dical Center Diastolic (mm Hg) 67 07/17/2017 [facility] Systolic (mm Hg) 139 07/17/2017 [facility] dical Center Diastolic (mm Hg) 65 07/17/2017 [facility] edical Center Respitory Rate 20 07/17/2017 [facility] Center Respitory Rate 20 07/16/2017 [facility] Center Temperature Oral (F) 98.0 F 07/16/2017 [facility] BMI Calculated 30.53 07/16/2017 [facility] Center Height 160.02 cm 07/16/2017 [facility] Weight 78.182 07/16/2017 [facility] Height 160.02 cm 07/15/2017 [facility] Weight 72.727 07/15/[facility] BMI Calculated 28.4 07/15/2017 [facility] Center Systolic (mm Hg) 143 03/05/2017 [facility] dical Center Diastolic (mm Hg) 65 03/05/2017 [facility] edical Center Respitory Rate 18 03/05/2017 [facility] Center Systolic (mm Hg) 137 03/05/2017 [facility] dical Center Diastolic (mm Hg) 61 03/05/2017 [facility] Center Respitory Rate 18 03/05/2017 [facility] Center Respitory Rate 18 03/05/2017 [facility] Center Systolic (mm Hg) 128 03/05/2017 [facility] dical Center Diastolic (mm Hg) 60 03/05/2017 [facility] Center Temperature Oral (F) 98.7 F 03/05/2017 [facility] Temperature Oral (F) 98.6 F 03/05/2017 [facility] Temperature Oral (F) 98.9 F 03/05/2017 [facility] Height 160.02 cm 03/04/2017 [facility] BMI Calculated 27.7 03/04/2017 [facility] Weight 70.938 03/04/2017 [facility] Encounters Location Location Encounter Encounter Reason Attending ADM DC Stat us Source Details Type Number For Provider Date Date Visit [facility] [id number] Conner 03/04 03/05 [facility] Sixto /2016 [facility] Outpatient [id number] Umangashayar 07/15 07/16 [facility] Hematpour /2017 [facility] Bedded [id number] Ale 07/16 07/17 [facility] Outpatient Lord /2017 [facility] Procedures Procedure Code Date Perfomer Comments Source Coronary artery [id number] [facility] Stent placement [id number] [facility] Assessment and Plan No Data Provided for This Section Plan of Care No Data Provided for This Section Social History Social History Date Source Social History TypeResponse 07/16/2017 [facility] Smoking Status Never smoker; Ready to change: No; Expos ure to Tobacco Smoke None; Cigarette Smoking Last 365 Days No; Reg Smoking Cessation Counseling No entered on: 07/16/17 Family History No Data Provided for This Section Advance Directives No Data Provided for This Section Functional Status No Data Provided for This Section
--- NOTE | 2019-11-11 19:32 | RAD REPORT ---
EXAM DESCRIPTION: Nahomy Single View11/11/2019 7:27 pm CLINICAL HISTORY: Chest pain COMPARISON: 2018 FINDINGS: Mild bilateral interstitial lung opacities. The heart is moderately enlarged IMPRESSION: Mild CHF
[2019-11-11 21:02] LABS: Basophils % 0.8 % (0-1.3); Hematocrit 30.5 % (36.0-45.0); Lymphocytes % 10.5 % (15.3-44.8); MPV 8.1 fL (7.6-11.3); RBC Red Blood Cell Count 3.66 M/uL (3.86-4.86)
[2019-11-11 21:03] LABS: Protime INR 1.47
[2019-11-11 21:21] LABS: ALT/SGPT 15 U/L (12-78); AST/SGOT 12 U/L (15-37); Albumin 3.4 g/dL (3.4-5.0); Alkaline Phosphatase 79 U/L (45-117); BUN Blood Urea Nitrogen 16 mg/dL (7-18); Bicarbonate 28 mmol/L (21-32); Bilirubin Direct 0.4 mg/dL (0-0.2); Bilirubin Total 1.1 mg/dL (0.2-1.0); Glucose Level 235 mg/dL (74-106); Magnesium 1.9 mg/dL (1.8-2.4); NT PRO-BNP 9290 pg/mL (<450); Potassium 3.5 mmol/L (3.5-5.1); Protein, Total 6.8 g/dL (6.4-8.2); Sodium Level 141 mmol/L (136-145); Troponin (Emerg Dept Use Only) < 0.02 ng/mL (0.0-0.045)
--- NOTE | 2019-11-11 21:23 | ER ---
Nurse's Notes [facility] Name: Bridgette Fields Age: 79 yrs Sex: Female : 1940 Arrival Date: 11/11/2019 Time: 18:34 Bed 7 Private MD: Diagnosis: Chronic obstructive pulmonary disease, unspecified;Hypoxemia;Acute respiratory failure with hypoxia;Unspecified combined systolic (congestive) and diastolic (congestive) heart failure Presentation: 11/10 18:40 Chief complaint: EMS states: SOB x1 WK. Coronavirus screen: Proceed with normal triage. bp Ebola Screen: No symptoms or risks identified at this time. Initial Sepsis Screen: Does the patient meet any 2 criteria? No. Patient's initial sepsis screen is negative. Does the patient have a suspected source of infection? No. Patient's initial sepsis screen is negative. Risk Assessment: Do you want to hurt yourself or someone else? Patient reports no desire to harm self or others. Onset of symptoms is unknown. Care prior to arrival: Glucose check: 214 Oxygen administered. via nasal cannula. 18:40 Method Of Arrival: EMS: [facility] bp 18:40 Acuity: SANDRO 3 bp Triage Assessment: 18:47 General: Appears in no apparent distress. comfortable, obese, Behavior is cooperative, bp appropriate for age, anxious. Pain: Denies pain. EENT: No deficits noted. Neuro: No deficits noted. Cardiovascular: Rhythm is sinus tachycardia. GI: No signs and/or symptoms were reported involving the gastrointestinal system. : No signs and/or symptoms were reported regarding the genitourinary system. Derm: No deficits noted. Musculoskeletal: No deficits noted. Historical: - Allergies: 18:47 Sulfa (Sulfonamide Antibiotics); bp - Home Meds: 18:47 Eliquis 2.5 mg oral tab 1 tab 2 times per day [Active]; Lasix 80 mg oral tab [Active]; bp Norvasc 5 mg Oral tab 1 tab once daily [Active]; Tresiba FlexTouch U-100 100 unit/mL (3 mL) subcutaneous inpn 46 unit daily [Active]; Protonix 40 mg Oral grps 1 packet once daily [Active]; metoprolol tartrate 25 mg oral tab 0.5 tab nightly [Active]; simvastatin 40 mg Oral tab 1 tab once daily [Active]; - PMHx: 18:47 Diabetes - NIDDM; Myocardial infarction; TIA; Atrial Fib; COPD; END STAGE; bp - Immunization history:: Adult Immunizations up to date. - Social history:: Smoking status: Patient denies any tobacco usage or history of. Screenin:52 Abuse screen: Denies threats or abuse. Denies injuries from another. Nutritional bp screening: No deficits noted. Tuberculosis screening: No symptoms or risk factors identified. Fall Risk None identified. Assessment: 18:52 General: SEE TRIAGE NOTE. bp 20:28 Reassessment: Patient and/or family updated on plan of care and expected duration. Pain ea level reassessed. Patient is alert, oriented x 3, equal unlabored respirations, skin warm/dry/pink. 21:51 Reassessment: Patient and/or family updated on plan of care and expected duration. Pain ea level reassessed. Patient is alert, oriented x 3, equal unlabored respirations, skin warm/dry/pink. Awaiting on patient orders. 23:12 Reassessment: Report given to Alison MCPHERSON. ea 23:25 Reassessment: Patient and/or family updated on plan of care and expected duration. Pain ea level reassessed. Patient is alert, oriented x 3, equal unlabored respirations, skin warm/dry/pink. Pt admitted to second floor, left ED via wheelchair per tech. Pt tolerating well. Vital Signs: 18:40 BP 136 / 51; Pulse 74; Resp 18; Temp 98.3; Pulse Ox 96% ; bp 20:00 BP 138 / 60; Pulse 68; Resp 18; Pulse Ox 97% on 2 lpm NC; ea 20:26 BP 153 / 57; Pulse 68; Resp 18; Pulse Ox 98% on 2 lpm NC; ea 22:55 BP 138 / 58; Pulse 79; Resp 20; Temp 98.2; Pulse Ox 96% on 2 lpm NC; ea ED Course: 18:34 Patient arrived in ED. em1 18:40 Andrew Bloom, RN is Primary Nurse. bp 18:42 Triage completed. bp 18:51 Arm band placed on. bp 18:52 Patient has correct armband on for positive identification. Bed in low position. Call bp light in reach. Side rails up X2. Adult w/ patient. 19:12 Nawaf Raya MD is Attending Physician. tw4 19:27 XRAY Chest (1 view) In Process Unspecified. EDMS 20:25 Inserted saline lock: 20 gauge in right forearm, using aseptic technique. ea 21:20 Sayda Darling MD is Hospitalizing Provider. tw4 21:51 No provider procedures requiring assistance completed. Patient admitted, IV remains in ea place. 22:02 Hospitalizing Provider role handed off by Sayda Darling MD tw4 22:02 Juan R Espinoza MD is Hospitalizing Provider. tw4 Administered Medications: No medications were administered Outcome: 21:23 Decision to Hospitalize by Provider. tw4 21:51 Instructed on the need for admit, Demonstrated understanding of instructions. ea 23:24 Admitted to Med/surg accompanied by nurse, room 230, with chart, Report called to prateek Rosas RN 23:24 Condition: stable 23:25 Patient left the ED. ea Signatures: Dispatcher [employer] EDMS Moise Guadarrama em1 Mayra Hurst RN RN Andrew Burris, RN RN Nawaf Young MD MD tw4 Corrections: (The following items were deleted from the chart) 20:27 20:26 BP 153 / 57; Pulse 68bpm; Resp 18bpm; Pulse Ox 98%; ea prateek
--- NOTE | 2019-11-11 21:23 | EDPHYS ---
Physician Documentation [facility] Name: Bridgette Fields Age: 79 yrs Sex: Female : 1940 Arrival Date: 11/11/2019 Time: 18:34 Bed 7 Private MD: ED Physician Nawaf Raya HPI: 11/10 19:40 This 79 yrs old Female presents to ER via EMS with complaints of Shortness Of tw4 Breath. 19:40 The patient has shortness of breath at rest. Onset: The symptoms/episode began/occurred tw4 today. Duration: The symptoms are continuous. The patient's shortness of breath has no apparent modifying factors. Associated signs and symptoms: The patient has no apparent associated signs or symptoms. Severity of symptoms: At their worst the symptoms were moderate in the emergency department the symptoms are unchanged. The patient has not experienced similar symptoms in the past. 23:07 Associated signs and symptoms: Pertinent negatives: chest pain, productive cough, tw4 diaphoresis, hemoptysis, loss of consciousness. pt recently diagnosed with COPD and has not been able to receive oxygen at home. Historical: - Allergies: 18:47 Sulfa (Sulfonamide Antibiotics); bp - Home Meds: 18:47 Eliquis 2.5 mg oral tab 1 tab 2 times per day [Active]; Lasix 80 mg oral tab [Active]; bp Norvasc 5 mg Oral tab 1 tab once daily [Active]; Tresiba FlexTouch U-100 100 unit/mL (3 mL) subcutaneous inpn 46 unit daily [Active]; Protonix 40 mg Oral grps 1 packet once daily [Active]; metoprolol tartrate 25 mg oral tab 0.5 tab nightly [Active]; simvastatin 40 mg Oral tab 1 tab once daily [Active]; - PMHx: 18:47 Diabetes - NIDDM; Myocardial infarction; TIA; Atrial Fib; COPD; END STAGE; bp - Immunization history:: Adult Immunizations up to date. - Social history:: Smoking status: Patient denies any tobacco usage or history of. ROS: 19:40 Constitutional: Negative for fever, chills, and weight loss, Eyes: Negative for injury, tw4 pain, redness, and discharge, Cardiovascular: Negative for chest pain, palpitations, and edema, Abdomen/GI: Negative for abdominal pain, nausea, vomiting, diarrhea, and constipation, Back: Negative for injury and pain, MS/Extremity: Negative for injury and deformity, Skin: Negative for injury, rash, and discoloration, Psych: Negative for depression, anxiety, suicide ideation, homicidal ideation, and hallucinations. 19:40 Respiratory: Positive for shortness of breath. Exam: 19:40 Constitutional: This is a well developed, well nourished patient who is awake, alert, tw4 and in no acute distress. Head/Face: Normocephalic, atraumatic. Chest/axilla: Normal chest wall appearance and motion. Nontender with no deformity. No lesions are appreciated. Cardiovascular: Regular rate and rhythm with a normal S1 and S2. No gallops, murmurs, or rubs. Normal PMI, no JVD. No pulse deficits. Abdomen/GI: Soft, non-tender, with normal bowel sounds. No distension or tympany. No guarding or rebound. No evidence of tenderness throughout. Back: No spinal tenderness. No costovertebral tenderness. Full range of motion. MS/ Extremity: Pulses equal, no cyanosis. Neurovascular intact. Full, normal range of motion. Neuro: Awake and alert, GCS 15, oriented to person, place, time, and situation. Cranial nerves II-XII grossly intact. Motor strength 5/5 in all extremities. Sensory grossly intact. Cerebellar exam normal. Normal gait. 19:40 Respiratory: the patient does not display signs of respiratory distress, Respirations: normal, Breath sounds: decreased breath sounds, are located in both bases. Vital Signs: 18:40 BP 136 / 51; Pulse 74; Resp 18; Temp 98.3; Pulse Ox 96% ; bp 20:00 BP 138 / 60; Pulse 68; Resp 18; Pulse Ox 97% on 2 lpm NC; ea 20:26 BP 153 / 57; Pulse 68; Resp 18; Pulse Ox 98% on 2 lpm NC; ea 22:55 BP 138 / 58; Pulse 79; Resp 20; Temp 98.2; Pulse Ox 96% on 2 lpm NC; ea MDM: 21:18 Patient medically screened. tw4 23:07 Differential diagnosis: Anemia. Antibiotic administration: Not indicated. Data tw4 reviewed: vital signs, nurses notes. Data interpreted: Pulse oximetry: Interpretation: normal. Counseling: I had a detailed discussion with the patient and/or guardian regarding: the historical points, exam findings, and any diagnostic results supporting the discharge/admit diagnosis. 23:23 Physician consultation: Juan R Espinoza MD was contacted at 21:30, regarding admission, tw4 patient's condition, and will see patient in inpatient room. ED course: Pt rested comfortably on the stretcher had no complaints during her ED stay. 11/10 19:14 Order name: Basic Metabolic Panel; Complete Time: 22:00 tw4 11/10 22:00 Interpretation: Normal except: GLUC 235; GFR 45. tw11/10 19:14 Order name: CBC with Diff; Complete Time: 22:00 tw4 11/10 22:01 Interpretation: Normal except: RBC 3.66; HGB 9.7; HCT 30.5; MCV 83.3; MCH 26.5; MCHC tw4 31.8; RDW 20.1; LYM% 10.5; DIANA% 76.7. 11/10 19:14 Order name: LFT's; Complete Time: 22:00 tw4 11/10 22:01 Interpretation: Normal except: BILIT 1.1; AST 12; BILID 0.4; A/G 1.0. tw11/10 19:14 Order name: Magnesium; Complete Time: 22:00 tw4 11/10 22:01 Interpretation: Within normal limits: MG 1.9. 11/10 19:14 Order name: NT PRO-BNP; Complete Time: 22:00 tw 11/10 22:01 Interpretation: Abnormal: NT PRO-BNP 9290. 11/10 19:14 Order name: PT-INR; Complete Time: 22:00 tw4 11/10 22:01 Interpretation: Normal except: PT 17.2. tw11/10 19:14 Order name: Troponin (emerg Dept Use Only); Complete Time: 22:00 tw4 11/10 22:01 Interpretation: Within normal limits: TROPED < 0.02. tw11/10 21:03 Order name: CBC Smear Scan; Complete Time: 22:00 EDMS 11/10 22:07 Order name: CBC with Automated Diff EDMS 11/10 22:07 Order name: CBC with Automated Diff EDMS 11/10 22:07 Order name: Comprehensive Metabolic Panel EDMS 06/18 22:07 Order name: Comprehensive Metabolic Panel EDKS 11/10 22:07 Order name: Lipid Profile EDKS 11/10 22:07 Order name: Lipid Profile [facility] 11/10 19:14 Order name: XRAY Chest (1 view); Complete Time: 22:00 tw4 11/10 22:02 Interpretation: No acute disease except. tw4 11/10 19:14 Order name: EKG; Complete Time: 19:15 tw4 11/10 19:14 Order name: Cardiac monitoring; Complete Time: 21:33 tw4 11/10 19:14 Order name: EKG - Nurse/Tech; Complete Time: 20:13 tw4 11/10 22:06 Order name: Heart Healthy [facility] 11/10 22:07 Order name: Echo with Doppler [facility] 11/10 22:07 Order name: Magnesium [facility] 11/10 22:07 Order name: Magnesium [facility] 11/10 22:07 Order name: NT PRO-BNP [facility] 11/10 22:07 Order name: NT PRO-BNP [facility] 11/10 22:07 Order name: Phosphorus [facility] 11/10 22:07 Order name: Phosphorus [facility] 11/10 22:07 Order name: Troponin I [facility] 11/10 22:07 Order name: Troponin I [facility] 11/10 22:07 Order name: Troponin I [facility] 11/10 22:07 Order name: Troponin I [facility] 11/10 19:14 Order name: IV Saline Lock; Complete Time: 20:27 tw4 11/10 19:14 Order name: Labs collected and sent; Complete Time: 21:00 tw4 11/10 19:14 Order name: O2 Per Protocol; Complete Time: 20:27 tw4 11/10 19:14 Order name: O2 Sat Monitoring; Complete Time: 20:27 tw4 EC:07 Rate is 72 beats/min. Rhythm is irregularly irregular. QRS [place] is Normal. VT interval tw4 is normal. QRS interval is normal. QT interval is normal. No Q waves. T waves are Flattened in leads III, V3. No ST changes noted. Clinical impression: Atrial Fibrillation. Interpreted by me. Reviewed by me. Administered Medications: No medications were administered Disposition: 11/11/19 21:23 Hospitalization ordered by Juan R Espinoza for Inpatient Admission. Preliminary diagnosis are Chronic obstructive pulmonary disease, unspecified, Hypoxemia, Acute respiratory failure with hypoxia, Unspecified combined systolic (congestive) and diastolic (congestive) heart failure. - Bed requested for Telemetry/MedSurg (Inpatient). - Status is Inpatient Admission. ea - Condition is Stable. - Problem is an ongoing problem. - Symptoms are unchanged. Signatures: Dispatcher [employer] EDMS Radha Spears RN RN dw Antunez, Elena, RN RN ea Peltier, Brian, RN RN bp Wadley, Terrence, MD MD tw4 Corrections: (The following items were deleted from the chart) 22: 21:23 Hospitalization Ordered by Sayda Darling MD for Inpatient Admission. Preliminary tw4 diagnosis is Chronic obstructive pulmonary disease, unspecified; Hypoxemia. Bed requested for Telemetry/MedSurg (Inpatient). Status is Inpatient Admission. Condition is Stable. Problem is an ongoing problem. Symptoms are unchanged. tw4 22:30 22:02 11/11/2019 21:23 Hospitalization Ordered by Juan R Espinoza MD for Inpatient dw Admission. Preliminary diagnosis is Chronic obstructive pulmonary disease, unspecified; Hypoxemia; Acute respiratory failure with hypoxia; Unspecified combined systolic (congestive) and diastolic (congestive) heart failure. Bed requested for Telemetry/MedSurg (Inpatient). Status is Inpatient Admission. Condition is Stable. Problem is an ongoing problem. Symptoms are unchanged. tw4 23:24 23:07 Special discussion: I discussed with the patient/guardian in detail that at this tw4 point there is no indication for admission to the hospital. It is understood, however, that if the symptoms persist or worsen the patient needs to return immediately for re-evaluation. tw4 23:25 22:30 11/11/2019 21:23 Hospitalization Ordered by Juan R Espinoza MD for Inpatient ea Admission. Preliminary diagnosis is Chronic obstructive pulmonary disease, unspecified; Hypoxemia; Acute respiratory failure with hypoxia; Unspecified combined systolic (congestive) and diastolic (congestive) heart failure. Bed requested for Telemetry/MedSurg (Inpatient). Status is Inpatient Admission. Condition is Stable. Problem is an ongoing problem. Symptoms are unchanged. dw
[2019-11-11 21:38] LABS: Anisocytosis 1+; Blood Morphology Comment NOTED (NOT SEEN); Platelet Estimate ADEQ; Polychromasia SLIGHT; Urine White Blood Cell Casts OK
[2019-11-11] MEDS ORDERED: ONDANSETRON 4 MG/2 ML VIAL IV PRN (21:46)
[2019-11-11] MEDS ORDERED: ACETAMINOPHEN 500 MG TAB PO PRN (21:46)
[2019-11-11 23:30] VITALS: BMI 35.9
[2019-11-11] MEDS ORDERED: POTASSIUM CL SA 10 MEQ TAB PO ONE (23:30)
[2019-11-12] MEDS: FUROSEMIDE 40 MG/4 ML VIAL IV SCH ×3 (00:09→17:57)
[2019-11-12 06:14] LABS: Absolute Lymphocytes (CBC) 1.1 K/uL (0.7-4.9); Basophils % 0.7 % (0-1.3); Hematocrit 28.7 % (36.0-45.0); Lymphocytes % 12.9 % (15.3-44.8); MPV 8.3 fL (7.6-11.3)
[2019-11-12 06:31] LABS: ALT/SGPT 16 U/L (12-78); AST/SGOT 16 U/L (15-37); Albumin 3.2 g/dL (3.4-5.0); Alkaline Phosphatase 70 U/L (45-117); BUN Blood Urea Nitrogen 13 mg/dL (7-18); Bicarbonate 28 mmol/L (21-32); Bilirubin Total 1.1 mg/dL (0.2-1.0); Glucose Level 83 mg/dL (74-106); HDL Cholesterol 43 mg/dL (40-60); LDL Cholesterol, Calculated 41 (<130); Magnesium 2.1 mg/dL (1.8-2.4); NT PRO-BNP 7729 pg/mL (<450); Phosphorus 2.8 mg/dL (2.5-4.9); Potassium 3.3 mmol/L (3.5-5.1); Protein, Total 6.3 g/dL (6.4-8.2); Sodium Level 143 mmol/L (136-145); Troponin I < 0.02 ng/mL (0.0-0.045)
--- NOTE | 2019-11-12 06:38 | EKG ---
Test Date: 2019-11-11 Test Time: 19:49:17 It Help Desk Technician: TT MEASUREMENT RESULTS: Intervals: Rate: 72 TX: QRSD: 86 QT: 460 QTc: 503 Colt: P: TX: QRS: 75 T: 107 INTERPRETIVE STATEMENTS: Atrial fibrillation Nonspecific ST and T wave abnormality, probably digitalis effect Prolonged QT Abnormal ECG Compared to ECG 04/13/2019 07:57:37 ST (T wave) deviation now present Prolonged QT interval now present Sinus rhythm no longer present First degree AV block no longer present Myocardial infarct finding no longer present Electronically Signed On 11-12-19 06:37:32 CDT by Leif Sanchez
[2019-11-12] MEDS ORDERED: POTASSIUM CL SA 10 MEQ TAB PO ONE ×2 (08:00→21:00)
[2019-11-12] MEDS: POTASSIUM 25 MEQ EFFERV TAB PO SCH (09:38)
[2019-11-12] MEDS: CLOPIDOGREL 75 MG TABLET PO SCH (09:38)
[2019-11-12] MEDS: ASPIRIN EC 81 MG TAB PO SCH (09:38)
[2019-11-12] MEDS: ENOXAPARIN 40 MG/0.4 ML SQ SCH (09:39)
--- NOTE | 2019-11-12 12:35 | HP ---
Date of Admission: 11/11/2019 History Of Present Illness: The patient is a 79-year-old female with multiple medical problems inclu ding chronic systolic congestive heart failure and COPD. She has been having shortness of breath rep orted for about a week noted only as per her daughter, with activity it will drop to below 88%. Poe laila, in the past 2 days, her shortness of breath became also at rest with a pulse oximetry dropping d own below 88% at rest. She went to the emergency room and she was admitted for acute respiratory jacquelyn lure with hypoxemia from systolic congestive heart failure and COPD. The patient denies any fever or chills, been having mild cough, but no fever. Voiced no other complaints. Review of Systems: Respiratory: As above. Cardiovascular: No palpitations, no chest pain, no complaints. Gastrointestinal: No complaints. Genitourinary: No complaints. Neurological: No complaints. Skeletomuscular: Multiple osteoarthritis in multiple joints. No change. Past Medical History: 1.Type 2 diabetes mellitus. 2.COPD. 3.Chronic systolic congestive heart failure. 4.Osteoarthritis, multiple joints. 5.Chronic atrial fibrillation. 6.Chronic kidney disease with diabetes at stage III. 7.Mixed hyperlipidemia. 8.Essential hypertension. 9.Coronary artery disease without angina. Social History: No smoking, alcohol, or drug abuse history. Family History: Noncontributing. Allergies: INCLUDE LISINOPRIL CAUSING COUGH AND SULFA DRUGS. Medications: Include, albuterol 2 puffs q.i.d., furosemide 40 mg p.o. daily, Tresiba 46 units daily, atorvastatin 40 mg p.o. daily, amlodipine 5 mg p.o. daily, citalopram 10 mg p.o. daily, Plavix 75 mg p.o. daily, Symbicort 1 puff b.i.d., and Eliquis 2.5 mg p.o. b.i.d. Physical Examination: Vital Signs: Blood pressure 160/80, pulse 80, temperature 96.9. Heart: Regular rate and rhythm. Chest: Clear to auscultation. Abdomen: Soft, nontender, nondistended. Bowel sounds are normoactive. Extremities: Trace edema bilateral. Neurological: Alert, oriented, nonfocal. Grossly intact. Head and Neck: Showed no JVD. Diagnostic Data: Chest x-ray showed mild CHF. Electrocardiogram, atrial fibrillation, nonspecific S T-T wave abnormality. Look for report. Laboratory Data: White cell count 8.4, hemoglobin 9.3, hematocrit 28.7, platelets 252. Chemistry: Potassium 3.3, BUN 13, creatinine 1.02. GFR 52. BNP 7729. Assessment And Plan: 1.Acute respiratory failure with hypoxemia. The patient has no home oxygen, being admitted to put h er on oxygen protocol and supplement. 2.Congestive heart failure, mild exacerbation, put the patient on IV furosemide, salt restriction, a nd bedrest. 3.Chronic obstructive pulmonary disease. At this time, no indication of acute bronchitis. With francisco javier t we will put the patient on beta 2 agonist breathing treatments and continue home medications. 4.Type 2 diabetes. We will put the patient on insulin sliding scale. We will resume her home medic ation. 5.Chronic renal insufficiency. We will monitor her electrolytes and her BUN, creatinine. 6.Rest of her chronic medical problems stable. Look orders for details. MFS/MODL Voice ID: [id number]
[2019-11-12] MEDS: ALBUTEROL 2.5 MG/3 ML NEB SOL NEB SCH ×2 (13:07→20:15)
[2019-11-12] MEDS: HOME MED 1 EA UNK (Budesonide/Formoterol Fumarate [Symbicort 160-4.5 Mcg Inhaler] 2 PUFF) IH SCH ×2 (14:00→21:00)
[2019-11-12] MEDS: AMLODIPINE 5 MG TAB PO SCH (14:03)
[2019-11-12] MEDS ORDERED: HOME MED 1 EA UNK (Simvastatin [Zocor] 40 MG) PO SCH (21:00)
[2019-11-12] MEDS: ATORVASTATIN 20 MG TAB PO SCH (21:28)
[2019-11-12] MEDS: METOPROLOL XL 25 MG TAB PO SCH (21:29)
[2019-11-13] MEDS: FUROSEMIDE 40 MG/4 ML VIAL IV SCH ×3 (00:39→16:56)
[2019-11-13] MEDS: ALBUTEROL 2.5 MG/3 ML NEB SOL NEB SCH ×4 (01:10→20:30)
[2019-11-13 06:41] LABS: Basophils % 0.8 % (0-1.3); Hematocrit 28.4 % (36.0-45.0); Lymphocytes % 13.5 % (15.3-44.8); MPV 8.3 fL (7.6-11.3); RBC Red Blood Cell Count 3.43 M/uL (3.86-4.86)
[2019-11-13 06:44] LABS: BUN Blood Urea Nitrogen 13 mg/dL (7-18); Bicarbonate 28 mmol/L (21-32); Glucose Level 175 mg/dL (74-106); Potassium 3.7 mmol/L (3.5-5.1); Sodium Level 142 mmol/L (136-145); Troponin I < 0.02 ng/mL (0.0-0.045)
[2019-11-13] MEDS: HOME MED 1 EA UNK (Budesonide/Formoterol Fumarate [Symbicort 160-4.5 Mcg Inhaler] 2 PUFF) IH SCH ×3 (09:00→20:52)
[2019-11-13] MEDS: ENOXAPARIN 40 MG/0.4 ML SQ SCH (09:25)
[2019-11-13] MEDS: ASPIRIN EC 81 MG TAB PO SCH (09:25)
[2019-11-13] MEDS: PANTOPRAZOLE 40MG TABLET PO SCH (09:25)
[2019-11-13] MEDS: AMLODIPINE 5 MG TAB PO SCH (09:25)
[2019-11-13] MEDS: CLOPIDOGREL 75 MG TABLET PO SCH (09:25)
[2019-11-13] MEDS: POTASSIUM 25 MEQ EFFERV TAB PO SCH (09:26)
[2019-11-13 12:20] LABS: Platelet Estimate ADEQ; Urine White Blood Cell Casts OK
[2019-11-13 12:21] LABS: Anisocytosis 1+; Blood Morphology Comment NOTED (NOT SEEN)
--- NOTE | 2019-11-13 19:22 | PN ---
Subjective: Patient is feeling well. Her shortness of breath was controlled with oxygen supplement, feeling better with that. No other complaints. Objective: Vital Signs: Blood pressure 130/60, pulse 75, temperature 96.8. Heart: Irregular rate and rhythm. Chest: Clear to auscultation. Abdomen: Soft, nontender. Bowel sounds are active. Extremities: No edema. No cyanosis. Peripheral pulses are felt. Pulse oximetry with activity 86%. Laboratory Data: White cell count 7.6, hemoglobin 8.9, hematocrit 28.4, platelets 245. Chemistry; B UN 13, creatinine 1.09, blood sugar fingersticks noted. Troponin less than 0.02. Assessment And Plan: Acute respiratory failure due to chronic obstructive pulmonary disease and krystian estive heart failure. Patient is doing well on 2 L of oxygen nasal prong. She has had her congestiv e heart failure improved on IV Lasix. At this time, I think we can discharge the patient on home O2 2 L nasal prong since it was 96%. Once this is arranged for the patient at home available for her, w e will go ahead and discharge her. Meanwhile, continue current care. MFS/MODL Voice ID: [id number] Report ID: [id number]
[2019-11-13] MEDS: ATORVASTATIN 20 MG TAB PO SCH (20:51)
[2019-11-13] MEDS: METOPROLOL XL 25 MG TAB PO SCH (20:51)
[2019-11-14] MEDS: FUROSEMIDE 40 MG/4 ML VIAL IV SCH ×3 (01:49→16:53)
[2019-11-14] MEDS: ALBUTEROL 2.5 MG/3 ML NEB SOL NEB SCH ×4 (01:50→20:00)
[2019-11-14] MEDS: AMLODIPINE 5 MG TAB PO SCH (08:26)
[2019-11-14] MEDS: ASPIRIN EC 81 MG TAB PO SCH (08:26)
[2019-11-14] MEDS: PANTOPRAZOLE 40MG TABLET PO SCH (08:26)
[2019-11-14] MEDS: POTASSIUM 25 MEQ EFFERV TAB PO SCH (08:26)
[2019-11-14] MEDS: CLOPIDOGREL 75 MG TABLET PO SCH (08:26)
[2019-11-14] MEDS: ENOXAPARIN 40 MG/0.4 ML SQ SCH (08:27)
[2019-11-14] MEDS: HOME MED 1 EA UNK (Budesonide/Formoterol Fumarate [Symbicort 160-4.5 Mcg Inhaler] 2 PUFF) IH SCH ×3 (08:27→20:54)
--- NOTE | 2019-11-14 19:33 | PN ---
Subjective: The patient is doing well. No increased shortness of breath. Objective: VITAL SIGNS: Blood pressure 120/78, pulse 66, temperature 97.2. Heart: Regular rate and rhythm. Chest: Clear to auscultation. Abdomen: Benign. Extremities: No edema. No cyanosis. Neurological: Alert, oriented, grossly intact. Assessment And Plan: 1.Congestive heart failure exacerbation, compensated now. 2.Hypoxemia with respiratory failure secondary to congestive heart failure and chronic obstructive p ulmonary disease. We are waiting on home oxygen to be available to be able to discharge the patient. Meanwhile, continue current treatment. MFS/MODL Voice ID: [id number] Report ID: [id number]
[2019-11-14] MEDS: ATORVASTATIN 20 MG TAB PO SCH (20:53)
[2019-11-14] MEDS: METOPROLOL XL 25 MG TAB PO SCH (20:53)
[2019-11-15] MEDS: FUROSEMIDE 40 MG/4 ML VIAL IV SCH ×3 (00:33→16:55)
[2019-11-15] MEDS: ALBUTEROL 2.5 MG/3 ML NEB SOL NEB SCH ×4 (01:30→20:05)
[2019-11-15 06:21] LABS: Potassium 3.7 mmol/L (3.5-5.1)
[2019-11-15] MEDS: AMLODIPINE 5 MG TAB PO SCH (08:41)
[2019-11-15] MEDS: PANTOPRAZOLE 40MG TABLET PO SCH (08:41)
[2019-11-15] MEDS: CLOPIDOGREL 75 MG TABLET PO SCH (08:41)
[2019-11-15] MEDS: ASPIRIN EC 81 MG TAB PO SCH (08:41)
[2019-11-15] MEDS: POTASSIUM 25 MEQ EFFERV TAB PO SCH (08:42)
[2019-11-15] MEDS: HOME MED 1 EA UNK (Budesonide/Formoterol Fumarate [Symbicort 160-4.5 Mcg Inhaler] 2 PUFF) IH SCH (08:43)
[2019-11-15] MEDS: ENOXAPARIN 40 MG/0.4 ML SQ SCH (08:43)
--- NOTE | 2019-11-15 21:16 | PN ---
Subjective: The patient is doing well, clinically stable. She has no new complaints. Objective: Her vitals and her physical exam stable. Her blood sugar fingersticks in the 200-188. Assessment And Plan: Respiratory failure, acute congestive heart failure and chronic obstructive pul monary disease that was on top of chronic. She needs home O2 pending this becoming available for her to be discharged with the patient held this O2 available for her at home. So far, social work case manager is working with her insurance. Meanwhile, continue current care. MFS/MODL Voice ID: [id number] Report ID: [id number]
[2019-11-15] MEDS: Budesonide/Formoterol Fumarate (Symbicort) 160-4.5 Mcg Inhaler IH SCH (21:18)
[2019-11-15] MEDS: METOPROLOL XL 25 MG TAB PO SCH (21:19)
[2019-11-15] MEDS: ATORVASTATIN 20 MG TAB PO SCH (21:19)
[2019-11-15] MEDS ORDERED: GLUCAGON 1 MG/VIAL IM PRN (21:46)
[2019-11-15] MEDS ORDERED: D50W 25 GM/50 ML SYRINGE/VIAL IV PRN (21:46)
[2019-11-15] MEDS: INSULIN -REGULAR HUMAN 50 UNIT/0.5 ML ML SQ SCH (22:56)
[2019-11-16] MEDS: FUROSEMIDE 40 MG/4 ML VIAL IV SCH ×2 (01:10→09:03)
[2019-11-16] MEDS: ALBUTEROL 2.5 MG/3 ML NEB SOL NEB SCH ×2 (02:00→08:23)
[2019-11-16] MEDS: INSULIN -REGULAR HUMAN 50 UNIT/0.5 ML ML SQ SCH ×2 (07:30→11:55)
[2019-11-16] MEDS: Budesonide/Formoterol Fumarate (Symbicort) 160-4.5 Mcg Inhaler IH SCH (09:02)
[2019-11-16] MEDS: PANTOPRAZOLE 40MG TABLET PO SCH (09:03)
[2019-11-16] MEDS: CLOPIDOGREL 75 MG TABLET PO SCH (09:03)
[2019-11-16] MEDS: POTASSIUM 25 MEQ EFFERV TAB PO SCH (09:03)
[2019-11-16] MEDS: ASPIRIN EC 81 MG TAB PO SCH (09:03)
[2019-11-16] MEDS: AMLODIPINE 5 MG TAB PO SCH (09:03)
[2019-11-16] MEDS: ENOXAPARIN 40 MG/0.4 ML SQ SCH (09:04)
[2019-11-16 09:48] VITALS: O2SAT 98
[2019-11-16 13:59] VITALS: BP 130/57; TEMP 97
--- NOTE | 2019-11-16 14:07 | DS ---
History: The patient is a 79-year-old female, who was admitted to the hospital because of shortness of breath, found to be with hypoxia, oxygen saturation down to 86% with activity, thought secondary t o congestive heart failure, systolic exacerbation, and COPD. Past Medical History: As per admit note. Social History: As per admit note. Family History: As per admit note. Medications: As per admit note. Allergies: PER ADMIT NOTE. Physical Examination: As per admit note. Diagnostic Data: As per admit note. Hospital Course: The patient was admitted to the hospital. She was put on oxygen protocol and on 2 L of oxygen nasal prong, her saturation went up to above 90%. We put her on IV Lasix and that improv ed her congestive heart failure and put the patient back into compensated systolic failure. We also put her on albuterol inhaler for her COPD, continued her home medications for chronic medical illness es. We monitored her electrolytes and her renal function, which improved. Also, she has chronic yosef al insufficiency from diabetes. We will monitor the blood sugar fingersticks and put her on sliding scale. The patient continued to do well and we ordered home oxygen for her and once this is availabl e today, we went ahead and discharge her on oxygen to continue the rest of her home medications and to follow up with me. Look discharge orders for details. MFS/MODL Voice ID: [id number] Report ID: [id number]
== END 2019-11-16 14:44 | disposition home or self-care (01) | DRG 177 ==
LOC: ER 18:30 → ERHOLD 22:14 → 2ND 23:20
PROVIDERS: ADMIT Internal Medicine; ATTEND Internal Medicine
DX: U07.1 COVID-19 (principal); J12.89 Other viral pneumonia; J96.01 Acute respiratory failure with hypoxia; I50.23 Acute on chronic systolic (congestive) heart failure; I13.0 Hypertensive heart and chronic kidney disease with heart failure and stage 1 through stage 4 chronic kidney disease, or unspecified chronic kidney disease; J44.0 Chronic obstructive pulmonary disease with (acute) lower respiratory infection; N18.3 Chronic kidney disease, stage 3 (moderate); E11.22 Type 2 diabetes mellitus with diabetic chronic kidney disease; E78.2 Mixed hyperlipidemia; I25.2 Old myocardial infarction; I25.10 Atherosclerotic heart disease of native coronary artery without angina pectoris; Z88.8 Allergy status to other drugs, medicaments and biological substances; Z79.02 Long term (current) use of antithrombotics/antiplatelets; Z79.51 Long term (current) use of inhaled steroids; Z79.01 Long term (current) use of anticoagulants; Z79.899 Other long term (current) drug therapy; Z86.73 Personal history of transient ischemic attack (TIA), and cerebral infarction without residual deficits
CPT/HCPCS: 36415; 71045; 80048; 80053; 80061; 80076; 82947; 83735; 83880; 84100; 84132; 84484; 85025; 85610; 93005; 94640; 99285; J1650; J1940; U0002